=== PATIENT | male | born 1940 | race Caucasian/White ===

== ENCOUNTER 2016-11-13 10:14 | Inpatient (IN) | payer MEDICARE, OTHER ==
[~2016-11-13] VITALS: Ht 172.7 cm; Wt 78.5 kg
[2016-11-13] MEDS ORDERED: AMLO10TA2 PO (10:45)
[2016-11-13] MEDS ORDERED: PRAV20TA2 PO (10:45)
[2016-11-13] MEDS ORDERED: GEMF600T3 PO (10:45)
[2016-11-13] MEDS ORDERED: ASPI81TA2 PO (10:45)
[2016-11-13] MEDS ORDERED: OMEP40CA5 PO (10:45)
[2016-11-13] MEDS ORDERED: LOSA100T6 PO (10:45)
[2016-11-13] MEDS ORDERED: IV NORMAL SALINE 1000ML BAG 1,000 ML IV SCH (10:56)
[2016-11-13] MEDS ORDERED: ACETAMINOPHEN 500 MG TABLET PO ONE (11:00)
--- NOTE | 2016-11-13 11:32 | RAD ---
Portable AP chest. History: Cough AP view was taken of the chest. Lungs are free of infiltrates. There are changes from previous right past surgery. Heart is normal in size. There is no effusion. Impression: 1. No acute chest disease.
--- NOTE | 2016-11-13 11:34 | PHYS DOC ---
Past Medical History Past Medical History: Cancer, Diabetes-Type II, GERD, High Cholesterol, Hypertension Additional Past Medical Histor: bladder cancer Past Surgical History: Cancer Surgery, Coronary Bypass Surgery, Other Additional Past Surgical Histo: bladder removed, foot sx Alcohol Use: None Drug Use: None Adult General Chief Complaint Chief Complaint: FATIGUE HPI HPI Patient is a 76 year old who presents with symptoms, generalized weakness, decreased appetite, generalized body aches, shortness of breath, generalized abdominal discomfort. Patient reports she has been having symptoms for the past 2 days. No clear inciting or mitigating factors. He denies fever or chest pain. He has tried some NyQuil and Mucinex at home with insufficient relief. No other acute complaints. Review of Systems Review of Systems Constitutional: Generalized weakness, decreased appetite. Denies fever or chills Eyes: Denies change in visual acuity or eye pain HENT: Denies nasal congestion or sore throat Respiratory: Productive cough, SOB Cardiovascular: Denies chest pain GI: General abdominal discomfort, chronic diarrhea. Denies nausea, vomiting, bloody stools : Denies dysuria or hematuria Musculoskeletal: General myalgias Integument: Denies rash or skin lesions Neurologic: Denies focal weakness or sensory changes Current Medications Current Medications Current Medications Medications (Trade) Dose Ordered Sig/Evelyne Start Time Stop Time Status Last Admin Dose Admin Acetaminophen (Tylenol) 1,000 mg 1X ONCE 11/13/16 11:00 11/13/16 11:01 DC 11/13/16 11:33 1,000 MG Aspirin (Children'S Aspirin) 324 mg 1X ONCE 11/13/16 12:15 11/13/16 12:17 DC 11/13/16 13:05 324 MG Sodium Chloride (Iv Sodium Chloride 0.9% 1000ml Bag) 1,000 ml @ 1,000 mls/hr Q1H 11/13/16 10:56 11/13/16 11:55 DC 11/13/16 11:32 1,000 MLS/HR Allergies Allergies Allergies Coded Allergies Type Severity Reaction Last Updated Verified No Known Drug Allergies 11/13/16 No Physical Exam Physical Exam Constitutional: Well developed, well nourished, non-toxic appearance HENT: Normocephalic, atraumatic, bilateral external ears normal Eyes: EOMI, conjunctiva normal, no discharge Neck: Normal range of motion, no stridor Cardiovascular: Heart rate normal, regular rhythm, no murmur Lungs & Thorax: Bilateral breath sounds clear to auscultation Abdomen: Bowel sounds normal, soft, non-distended, general discomfort on palpation without point tenderness, no rebound or guarding Skin: Warm, dry, no erythema, no rash Extremities: No obvious deformity, no edema Neurologic: Alert and oriented X 3, no gross deficits noted Current Patient Data Vital Signs Vital Signs Date Time Temp Pulse Resp B/P Pulse Ox O2 Delivery O2 Flow Rate FiO2 11/13/16 12:05 74 24 207/84 97 Room Air 11/13/16 10:34 97.9 97.9 Lab Values Laboratory Tests Test 11/13/16 11:10 11/13/16 11:20 11/13/16 11:37 Influenza Type A Antigen Negative (NEGATIVE) Influenza Type B Antigen Negative (NEGATIVE) White Blood Count 3.7x10^3/uL (4.0-11.0) L Red Blood Count 3.66x10^6/uL (4.30-5.70) L Hemoglobin 10.9g/dL (13.0-17.5) L Hematocrit 33.0% (39.0-53.0) L Mean Corpuscular Volume 90fL (79-100) Mean Corpuscular Hemoglobin 30pg (25-35) Mean Corpuscular Hemoglobin Concent 33g/dL (31-37) Red Cell Distribution Width 14.5% (11.5-14.5) Platelet Count 239x10^3/uL (140-400) Neutrophils (%) (Auto) 60% (31-73) Lymphocytes (%) (Auto) 22% (24-48) L Monocytes (%) (Auto) 17% (0-9) H Eosinophils (%) (Auto) 0% (0-3) Basophils (%) (Auto) 0% (0-3) Neutrophils # (Auto) 2.2x10^3uL (1.8-7.7) Lymphocytes # (Auto) 0.8x10^3/uL (1.0-4.8) L Monocytes # (Auto) 0.6x10^3/uL (0.0-1.1) Eosinophils # (Auto) 0.0x10^3/uL (0.0-0.7) Basophils # (Auto) 0.0x10^3/uL (0.0-0.2) Prothrombin Time 14.1SEC (11.7-14.0) H Prothrombin Time INR 1.2 (0.8-1.1) H PTT 39SEC (24-38) H Sodium Level 139mmol/L (136-145) Potassium Level 4.3mmol/L (3.5-5.1) Chloride Level 103mmol/L (98-107) Carbon Dioxide Level 22mmol/L (21-32) Anion Gap 14 (6-14) Blood Urea Nitrogen 36mg/dL (8-26) H Creatinine 1.8mg/dL (0.7-1.3) H Estimated GFR (Cockcroft-Gault) 37.0 Glucose Level 107mg/dL (70-99) H Calcium Level 9.3mg/dL (8.5-10.1) Total Bilirubin 0.4mg/dL (0.2-1.0) Direct Bilirubin 0.2mg/dL (0.0-0.2) Aspartate Amino Transferase (AST) 28U/L (15-37) Alanine Aminotransferase (ALT) 21U/L (16-63) Alkaline Phosphatase 109U/L (46-116) Troponin I Quantitative < 0.017ng/mL (0.000-0.055) Total Protein 7.8g/dL (6.4-8.2) Albumin 3.8g/dL (3.4-5.0) Urine Collection Type Unknown Urine Color Yellow Urine Clarity Clear Urine pH 8.5 Urine Specific [place] 1.010 Urine Protein 100mg/dL (NEG-TRACE) Urine Glucose (UA) Negativemg/dL (NEG) Urine Ketones (Stick) Negativemg/dL (NEG) Urine Blood Large (NEG) Urine Nitrite Negative (NEG) Urine Bilirubin Negative (NEG) Urine Urobilinogen Dipstick 0.2mg/dL (0.2 mg/dL) Urine Leukocyte Esterase Negative (NEG) Urine RBC >40/HPF (0-2) Urine WBC 5-10/HPF (0-4) Urine Squamous Epithelial Cells Occ/LPF Urine Bacteria Many/HPF (0-FEW) Laboratory Tests 11/13/16 11:20 Laboratory Tests 11/13/16 11:20 EKG EKG EKG (my read): sinus rhythm, rate 71, normal axis, RBBB, ST depression/TWI in anterior and inferior leads, no prior to compare Radiology/Procedures Radiology/Procedures CXR: Impression: 1. No acute chest disease. AAS: Impression: 1. Nonspecific bowel gas pattern without obstruction. 2. Evidence of prior surgeries. 3. No free air. Course & Med Decision Making Course & Med Decision Making Pertinent Labs and Imaging studies reviewed. (See chart for details) Patient is 76-year-old male who presents with multiple complaints. Possible viral illness. However, patient has extensive past medical history so will need to pursue workup to screen for more serious pathology. Chest x-ray, EKG, labs ordered to evaluate. IV fluids and acetaminophen ordered for relief of symptoms. E.g. concerning for ischemic changes; troponin within normal limits. I discussed this quickly with Dr. Horner; although patient does not have any specific chest pain, with his history and with EKG changes we will heparinize and give ASA. Labs notable for hematuria, mild anemia, leukopenia, creatinine 1.8. Discussed results with patient. Discussed with Dr. Desai, will admit under her care for further evaluation and treatment. Dragon Disclaimer Dragon Disclaimer This electronic medical record was generated, in whole or in part, using a voice recognition dictation system. Departure Departure Impression: Primary Impression: Generalized weakness Additional Impressions: Fatigue Abnormal EKG Disposition: ADMITTED INPATIENT Admitting Physician: Jose L Kebede Condition: GUARDED Problem Qualifiers TERESA GERMAN MD Nov 13, 2016 11:34
[2016-11-13 11:39] LABS: OBC FLU VALID
[2016-11-13 11:39] LABS: BASO % 0 % (0-3); CALCIUM 9.3 mg/dL (8.5-10.1); CREATININE 1.8 mg/dL (0.7-1.3); EOS % 0 % (0-3); HEMOGLOBIN 10.9 g/dL (13.0-17.5); LYMPH # 0.8 x10^3/uL (1.0-4.8); LYMPH % 22 % (24-48); MEAN CORPUSCULAR HEMOGLOBIN 30 pg (25-35); MEAN CORPUSCULAR HGB CONC 33 g/dL (31-37); MEAN CORPUSCULAR VOLUME 90 fL (79-100); MONO % 17 % (0-9); NEUT % 60 % (31-73); PLATELET COUNT 239 x10^3/uL (140-400); POTASSIUM 4.3 mmol/L (3.5-5.1); RED BLOOD COUNT 3.66 x10^6/uL (4.30-5.70); RED CELL DISTRIBUTION WIDTH 14.5 % (11.5-14.5); WHITE BLOOD COUNT 3.7 x10^3/uL (4.0-11.0)
[2016-11-13 11:45] LABS: ALBUMIN 3.8 g/dL (3.4-5.0); DIRECT BILIRUBIN 0.2 mg/dL (0.0-0.2); TOTAL BILIRUBIN 0.4 mg/dL (0.2-1.0); TOTAL PROTEIN 7.8 g/dL (6.4-8.2)
--- NOTE | 2016-11-13 11:55 | EKG ---
[facility] [address] [place] [address] Test Date: 2016-11-13 Test Time: 11:47:59 Pat Name: PAUL BELLO Department: Room: Gender: M Authorizer: : [id number] Requested By: TERESA GERMAN Order Number: [id number] Reading MD: Arlin Taylor Measurements Intervals [place] Rate: 71 P: -67 WI: 162 QRS: 83 QRSD: 132 T: -57 QT: 398 QTc: 437 Interpretive Statements SINUS RHYTHM ATRIAL PREMATURE COMPLEX(ES) RIGHT BUNDLE BRANCH BLOCK \ RI6.01 Unconfirmed report No previous ECG available for comparison Electronically Signed On 11-17-2016 23:06:01 [employer] by Arlin Taylor
[2016-11-13 12:05] LABS: BILIRUBIN,URINE NEGATIVE (NEG); GLUCOSE,URINE NEGATIVE (NEG); NITRITE,URINE NEGATIVE (NEG); PH,URINE 8.5; PROTEIN,URINE 100 mg/dL (NEG-TRACE); UROBILINOGEN,URINE 0.2 mg/dL (0.2 mg/dL)
[2016-11-13] MEDS ORDERED: ASPIRIN 81 MG TAB.CHEW PO ONE (12:15)
[2016-11-13 12:29] LABS: BACTERIA,URINE MANY /HPF (0-FEW); RBC,URINE >40 /HPF (0-2); SQUAMOUS EPITHELIAL CELL,UR OCC /LPF
[2016-11-13] MEDS ORDERED: ACETAMINOPHEN 325 MG TABLET. PO PRN (12:30)
[2016-11-13] MEDS ORDERED: HEPARIN 25,000UTS/500ML PREMIX 500 ML IV PRN (12:30)
[2016-11-13] MEDS ORDERED: NITROGLYCERIN SUBLINGUAL 0.4 MG BOTTLE OF 25. SL PRN (12:30)
[2016-11-13] MEDS ORDERED: DEXTROSE 50% 25 GM / 50ML DISP.SYRIN. IV PRN (12:30)
[2016-11-13] MEDS ORDERED: HEPARIN for IV BOLUS 10,000 UNIT/10 ML VIAL. IV PRN (12:30)
[2016-11-13] MEDS ORDERED: MORPHINE SULFATE 2 MG/ML DISP.SYRIN. IV PRN (12:30)
[2016-11-13] MEDS ORDERED: ONDANSETRON PF 4 MG/2 ML VIAL. IV PRN (12:30)
[2016-11-13 12:36] LABS: INR 1.2 (0.8-1.1); PROTHROMBIN TIME PATIENT 14.1 SEC (11.7-14.0)
[2016-11-13] MEDS ORDERED: HEPARIN for IV BOLUS 10,000 UNIT/10 ML VIAL. IV ONE (13:00)
--- NOTE | 2016-11-13 13:01 | RAD ---
Supine and upright abdomen. History: Abdominal pain, previous surgery, history of "blockage" Supine and upright views were taken of the abdomen. There is no free air on the upright view or abnormal air-fluid levels. There is mild scoliosis and degenerative change in the thoracolumbar spine. There is small bowel and colon gas without an obstructive pattern. There are clips from previous surgery in the pelvis. The visualized lung bases are clear. Impression: 1. Nonspecific bowel gas pattern without obstruction. 2. Evidence of prior surgeries. 3. No free air.
[2016-11-13 13:30] VITALS: BP 174/69
[2016-11-13 15:00] VITALS: BP 146/67
[2016-11-13] MEDS: INSULIN ASPART 300 UNITS/3 ML INSULN.PEN SQ SCH (17:00)
[2016-11-13 19:10] VITALS: BP 159/69
[2016-11-13] MEDS: GEMFIBROZIL 600 MG TABLET. PO SCH (20:55)
[2016-11-13] MEDS: ATORVASTATIN CALCIUM 10 MG TABLET. PO SCH (20:56)
[2016-11-13 23:32] VITALS: BP 145/67
[2016-11-14 03:00] VITALS: BP 142/65
[2016-11-14 06:43] LABS: HEMATOCRIT 29.9 % (39.0-53.0); HEMOGLOBIN 10.2 g/dL (13.0-17.5); RED BLOOD COUNT 3.32 x10^6/uL (4.30-5.70); RED CELL DISTRIBUTION WIDTH 14.4 % (11.5-14.5); WHITE BLOOD COUNT 3.7 x10^3/uL (4.0-11.0)
[2016-11-14 07:00] VITALS: BP 126/57
[2016-11-14 07:05] LABS: CALCIUM 8.7 mg/dL (8.5-10.1); CREATININE 1.7 mg/dL (0.7-1.3); GFR 39.5; MAGNESIUM 1.7 mg/dL (1.8-2.4); POTASSIUM 3.7 mmol/L (3.5-5.1)
[2016-11-14 07:11] LABS: CHOLESTEROL/HDL RATIO 4.9
[2016-11-14] MEDS: INSULIN ASPART 300 UNITS/3 ML INSULN.PEN SQ SCH ×3 (08:00→17:00)
[2016-11-14] MEDS: LOSARTAN POTASSIUM 50 MG TABLET. PO SCH (10:08)
[2016-11-14] MEDS: GEMFIBROZIL 600 MG TABLET. PO SCH ×2 (10:08→21:14)
[2016-11-14] MEDS: PANTOPRAZOLE 40 MG TABLET. PO SCH (10:09)
[2016-11-14] MEDS: AMLODIPINE BESYLATE 10 MG TABLET PO SCH (10:09)
[2016-11-14] MEDS: ASPIRIN 81 MG TAB.CHEW PO SCH (10:09)
[2016-11-14 11:00] VITALS: BP 143/64
[2016-11-14] MEDS ORDERED: ANTI-COAG MONITOR BY PHARMACY. MC PRN (13:00)
[2016-11-14 15:00] VITALS: BP 114/53
[2016-11-14] MEDS: IPRATRPIUM/ALBUTEROL 0.5/2.5MG 3 ML NEBU. NEB SCH ×2 (16:10→21:21)
--- NOTE | 2016-11-14 17:04 | CARD ---
APPROVED REPORT EXAM: Two-dimensional and M-mode echocardiogram with Doppler and color Doppler. Other Information Quality : FairHR: 78bpm INDICATION Dyspnea H/O CABG 2D DIMENSIONS Left Atrium(2D)4.3 (1.6-4.0cm)IVSd1.1 (0.7-1.1cm) Aortic Root(2D)2.9 (2.0-3.7cm)LVDd4.2 (3.9-5.9cm) LVOT Diameter2.2 (1.8-2.4cm)PWd1.1 (0.7-1.1cm) LVDs2.8 (2.5-4.0cm)FS (%) 34.1 % SV49.4 mlCO3.8 L/min M-Mode DIMENSIONS Aortic Cusp Exc1.57 (1.5-2.0cm) Aortic Valve AoV Peak Claus.112.2cm/sAoV VTI19.7cm AO Peak GR.5.0mmHgLVOT VTI 12.69cm AO Mean GR.3mmHg Mitral Valve MV E Jigverxz44.4cm/sMV E Peak Gr.4mmHg MV DECEL [id number] MVA (PHT)4.07cm2 TDI Lateral E' P. V10.66cm/sMedial E' P. V10.01cm/s E/Lateral E'8.9E/Medial E'9.5 Pulmonary Valve PV Peak Sksttxon508.4cm/s Tricuspid Valve TR P. Qbyolckj044of/sTR Peak Gr.49mmHg LEFT VENTRICLE The left ventricle is normal size. There is normal left ventricular wall thickness. The left ventricu lar systolic function is normal and the ejection fraction is within normal range. LV ejection fractio n is 55-60%. There is normal LV segmental wall motion. No left ventricle thrombus noted on this study . There is no ventricular septal defect visualized. There is no left ventricular aneurysm. There is n o mass noted in the left ventricle. RIGHT VENTRICLE The right ventricle is normal size. There is normal right ventricular wall thickness. The right ventr icular systolic function is normal. ATRIA The left atrium is borderline dilated. The right atrium size is normal. The interatrial septum is int act with no evidence for an atrial septal defect or patent foramen ovale as noted on 2-D or Doppler i maging. AORTIC VALVE A bicuspid aortic valve cannot be excluded. Doppler and Color Flow revealed no significant aortic reg urgitation. There is no significant aortic valvular stenosis. There is no aortic valvular vegetation. MITRAL VALVE The mitral valve is normal in structure and function. There is no evidence of mitral valve prolapse. There is no mitral valve stenosis. Doppler and Color Flow revealed slight mitral valve regurgitation. TRICUSPID VALVE The tricuspid valve is normal in structure and function. Doppler and Color Flow revealed mild tricusp id regurgitation. There is no tricuspid valve prolapse or vegetation. There is no tricuspid valve laith nosis. PULMONIC VALVE The pulmonary valve is normal in structure and function. Doppler and Color Flow revealed trace to mil d pulmonic valvular regurgitation. There is no pulmonic valvular stenosis. GREAT VESSELS The aortic root is normal in size. The ascending aorta is normal in size. The IVC is normal in size a nd collapses >50% with inspiration. PERICARDIAL EFFUSION There is no pleural effusion. There is no evidence of significant pericardial effusion. Critical Notification Critical Value: No <Conclusion> The left ventricle is normal size. The left ventricular systolic function is normal and the ejection fraction is within normal range. LV ejection fraction is 55-60%. There is no significant aortic valvular stenosis. Doppler and Color Flow revealed no significant aortic regurgitation. Doppler and Color Flow revealed slight mitral valve regurgitation. Doppler and Color Flow revealed mild tricuspid regurgitation. There is no evidence of significant pericardial effusion.
--- NOTE | 2016-11-14 17:37 | PDOC ---
Provider Note Provider Note H&P dictated # [id number] - presented to ER with fatigue abnormal EKG found and with cardiac hx admitted on heparin drip but enzymes normal so I have stopped it. abnormal UA with hx of bladder cancer and urine growing gram negative rods, will start Ceftriaxone IV pending results, not a good candidate for levaquin due to potential interaction with other meds cough with left sided rhonchi consistent with bronchitis and exacerbation, start pulm Alonzo Baez MD Nov 14, 2016 17:37
[2016-11-14] MEDS: CEFTRIAXONE SODIUM 1 GM in IV NORMAL SALINE 50ML 50 ML IV SCH (17:53)
--- NOTE | 2016-11-14 19:04 | PDOC2 ---
CONSULT Date of Consult Date of Consult DATE: 11/14/16 TIME: 18:57 Reason for Consult Reason for Consult: Abnormal EKG with history of CABG Referring Physician Referring Physician: Dr. Kebede Identification/Chief Complaint Chief Complaint Weakness Source Source: Patient History of Present Illness Reason for Visit: The patient is a pleasant 76-year-old male who was admitted through the emergency room for 2-3 days of progressive weakness. Patient denied any episodes of chest pain but does have a history of bypass surgery as well as carcinoma of the bladder. Overnight he is feeling slightly better. His initial troponin is within normal limits. Chest x-ray shows no acute changes. EKG shows a sinus rhythm with a right bundle branch block and nonspecific ST-T wave changes. Past Medical History Cardiovascular: CAD, HTN, Hyperlipidemia Pulmonary: Bronchitis Heme/Onc: Cancer Past Surgical History Past Surgical History: CABG, Other (surgery for bladder cancer.) Family History Family History: Heart Disease Social History No Current Problem List Problem List Problems Medical Problems: (1) Abnormal EKG Status: Acute (2) Acute electrocardiogram changes Status: Acute (3) Fatigue Status: Acute (4) Generalized weakness Status: Acute Current Medications Current Medications Current Medications Sodium Chloride (Iv Sodium Chloride 0.9% 1000ml Bag) 1,000 ml @ 1,000 mls/hr Q1H IV Last administered on 11/13/16 11:32; Start 11/13/16 at 10:56; Stop at 11:55; Status DC Acetaminophen (Tylenol) 1,000 mg 1X ONCE PO Last administered on 11/13/16 11: 33; Start 11/13/16 at 11:00; Stop 11/13/16 at 11:01; Status DC Aspirin (Children'S Aspirin) 324 mg 1X ONCE PO Last administered on 11/13/16 13:05; Start 11/13/16 at 12:15; Stop 11/13/16 at 12:17; Status DC Heparin Sodium (Porcine) 4000 unit 4,000 unit 1X ONCE IV Last administered on 11/13/16 13:08; Start 11/13/16 at 13:00; Stop 11/13/16 at 13:01; Status DC Heparin Sodium/ Dextrose 500 ml @ 0 mls/hr CONT PRN IV SEE I/O RECORD Last administered on 11/13/16 17:10; Start 11/13/16 at 12:30; Stop 11/14/16 at 17:33; Status DC Heparin Sodium (Porcine) 1,950 unit PRN Q6HRS PRN IV FOR UFH LEVEL LESS THAN 0.2; Start 11/13/16 at 12:30; Stop 11/14/16 at 17:33; Status DC Ondansetron HCl (Zofran) 4 mg PRN Q8HRS PRN IV NAUSEA/VOMITING; Start 11/13/16 at 12:30; Stop 11/14/16 at 12:29; Status DC Morphine Sulfate 2 mg PRN Q2HR PRN IV PAIN; Start 11/13/16 at 12:30; Stop at 12:29; Status DC Acetaminophen (Tylenol) 650 mg PRN Q4HRS PRN PO FEVER; Start 11/13/16 at 12:30; Stop 11/14/16 at 12:29; Status DC Nitroglycerin (Nitrostat) 0.4 mg PRN Q5MIN PRN SL CHEST PAIN; Start 11/13/16 at 12:30; Stop 11/14/16 at 12:29; Status DC Insulin Aspart (Novolog) 0-7 UNITS TIDWMEALS SQ Last administered on 11/14/16 13:42; Start 11/13/16 at 17:00 Dextrose 12.5 gm PRN Q15MIN PRN IV SEE COMMENTS; Start 11/13/16 at 12:30 Amlodipine Besylate (Norvasc) 10 mg DAILY PO Last administered on 11/14/16 10: 09; Start 11/14/16 at 09:00 Aspirin (Children'S Aspirin) 81 mg DAILY PO Last administered on 11/14/16 10:09 ; Start 11/14/16 at 09:00 Gemfibrozil (Lopid) 600 mg BID PO Last administered on 11/14/16 10:08; Start at 21:00 Losartan Potassium (Cozaar) 50 mg DAILY PO Last administered on 11/14/16 10:08 ; Start 11/14/16 at 09:00 Pantoprazole Sodium (Protonix) 40 mg DAILYAC PO Last administered on 11/14/16 10:09; Start 11/14/16 at 07:30 Atorvastatin Calcium (Lipitor) 5 mg QHS PO Last administered on 11/13/16 20:56 ; Start 11/13/16 at 21:00 Info (Anti-Coagulation Monitoring By Pharmacy) 1 each PRN DAILY PRN MC SEE COMMENTS Last administered on 11/14/16 12:57; Start 11/14/16 at 13:00; Stop at 17:36; Status DC Budesonide (Pulmicort) 0.5 mg RTBID NEB ; Start 11/14/16 at 20:00 Albuterol/ Ipratropium (Duoneb) 3 ml RTQID NEB Last administered on 11/14/16 16 :10; Start 11/14/16 at 16:00 Guaifenesin 1 tab 1 tab BID PO ; Start 11/14/16 at 21:00 Ceftriaxone Sodium/Sodium Chloride (Rocephin/Iv Sodium Chloride 0.9% 50ml) 50 ml @ 100 mls/hr Q24H IV Last administered on 11/14/16 17:53; Start 11/14/16 at 18:00 Active Scripts Active Reported Omeprazole 40 Mg Capsule.dr 1 Cap PO DAILY Amlodipine Besylate 10 Mg Tablet 10 Mg PO DAILY Aspirin 81 Mg Tab.chew 1 Tab PO DAILY Gemfibrozil 600 Mg Tablet 1 Tab PO BID Pravastatin Sodium 20 Mg Tablet 1 Tab PO DAILY Losartan Potassium 100 Mg Tablet 50 Mg PO DAILY Allergies Allergies: Coded Allergies: No Known Drug Allergies (Unverified , 11/13/16) ROS General: YES: Fatigue Respiratory: YES: SOB with excertion Physical Exam General: mild distress HEENT: Atraumatic Lungs: Clear to auscultation Heart: Regular rate Abdomen: Normal bowel sounds Vitals VITALS Vital Signs Date Time Temp Pulse Resp B/P Pulse Ox O2 Delivery O2 Flow Rate FiO2 11/14/16 16:11 97 Room Air 11/14/16 15:00 97.7 70 18 114/53 97.7 Labs Labs Laboratory Tests Test 11/13/16 11:10 11/13/16 11:20 11/13/16 11:37 11/13/16 13:48 Influenza Type A Antigen Negative (NEGATIVE) Influenza Type B Antigen Negative (NEGATIVE) White Blood Count 3.7x10^3/uL (4.0-11.0) Red Blood Count 3.66x10^6/uL (4.30-5.70) Hemoglobin 10.9g/dL (13.0-17.5) Hematocrit 33.0% (39.0-53.0) Mean Corpuscular Volume 90fL (79-100) Mean Corpuscular Hemoglobin 30pg (25-35) Mean Corpuscular Hemoglobin Concent 33g/dL (31-37) Red Cell Distribution Width 14.5% (11.5-14.5) Platelet Count 239x10^3/uL (140-400) Neutrophils (%) (Auto) 60% (31-73) Lymphocytes (%) (Auto) 22% (24-48) Monocytes (%) (Auto) 17% (0-9) Eosinophils (%) (Auto) 0% (0-3) Basophils (%) (Auto) 0% (0-3) Neutrophils # (Auto) 2.2x10^3uL (1.8-7.7) Lymphocytes # (Auto) 0.8x10^3/uL (1.0-4.8) Monocytes # (Auto) 0.6x10^3/uL (0.0-1.1) Eosinophils # (Auto) 0.0x10^3/uL (0.0-0.7) Basophils # (Auto) 0.0x10^3/uL (0.0-0.2) Prothrombin Time 14.1SEC (11.7-14.0) Prothromb Time International Ratio 1.2 (0.8-1.1) Activated Partial Thromboplast Time 39SEC (24-38) Sodium Level 139mmol/L (136-145) Potassium Level 4.3mmol/L (3.5-5.1) Chloride Level 103mmol/L (98-107) Carbon Dioxide Level 22mmol/L (21-32) Anion Gap 14 (6-14) Blood Urea Nitrogen 36mg/dL (8-26) Creatinine 1.8mg/dL (0.7-1.3) Estimated GFR (Cockcroft-Gault) 37.0 Glucose Level 107mg/dL (70-99) Calcium Level 9.3mg/dL (8.5-10.1) Total Bilirubin 0.4mg/dL (0.2-1.0) Direct Bilirubin 0.2mg/dL (0.0-0.2) Aspartate Amino Transf (AST/SGOT) 28U/L (15-37) Alanine Aminotransferase (ALT/SGPT) 21U/L (16-63) Alkaline Phosphatase 109U/L (46-116) Troponin I Quantitative < 0.017ng/mL (0.000-0.055) Total Protein 7.8g/dL (6.4-8.2) Albumin 3.8g/dL (3.4-5.0) Urine Collection Type Unknown Urine Color Yellow Urine Clarity Clear Urine pH 8.5 Urine Specific [place] 1.010 Urine Protein 100mg/dL (NEG-TRACE) Urine Glucose (UA) Negativemg/dL (NEG) Urine Ketones (Stick) Negativemg/dL (NEG) Urine Blood Large (NEG) Urine Nitrite Negative (NEG) Urine Bilirubin Negative (NEG) Urine Urobilinogen Dipstick 0.2mg/dL (0.2 mg/dL) Urine Leukocyte Esterase Negative (NEG) Urine RBC >40/HPF (0-2) Urine WBC 5-10/HPF (0-4) Urine Squamous Epithelial Cells Occ/LPF Urine Bacteria Many/HPF (0-FEW) Glucose (Fingerstick) 91mg/dL (70-99) Test 11/13/16 17:07 11/13/16 18:30 11/13/16 20:57 11/13/16 21:44 Glucose (Fingerstick) 89mg/dL (70-99) 59mg/dL (70-99) 95mg/dL (70-99) Troponin I Quantitative < 0.017ng/mL (0.000-0.055) Test 11/13/16 23:15 11/14/16 00:15 11/14/16 05:05 11/14/16 08:24 Heparin Anti-Xa Act, Unfractionated 0.24IU/mL (0.30-0.70) 0.39IU/mL (0.30-0.70) Troponin I Quantitative < 0.017ng/mL (0.000-0.055) < 0.017ng/mL (0.000-0.055) White Blood Count 3.7x10^3/uL (4.0-11.0) Red Blood Count 3.32x10^6/uL (4.30-5.70) Hemoglobin 10.2g/dL (13.0-17.5) Hematocrit 29.9% (39.0-53.0) Mean Corpuscular Volume 90fL (79-100) Mean Corpuscular Hemoglobin 31pg (25-35) Mean Corpuscular Hemoglobin Concent 34g/dL (31-37) Red Cell Distribution Width 14.4% (11.5-14.5) Platelet Count 212x10^3/uL (140-400) Sodium Level 141mmol/L (136-145) Potassium Level 3.7mmol/L (3.5-5.1) Chloride Level 106mmol/L (98-107) Carbon Dioxide Level 22mmol/L (21-32) Anion Gap 13 (6-14) Blood Urea Nitrogen 38mg/dL (8-26) Creatinine 1.7mg/dL (0.7-1.3) Estimated GFR (Cockcroft-Gault) 39.5 Glucose Level 63mg/dL (70-99) Calcium Level 8.7mg/dL (8.5-10.1) Magnesium Level 1.7mg/dL (1.8-2.4) Triglycerides Level 166mg/dL (0-150) Cholesterol Level 122mg/dL (0-200) LDL Cholesterol, Calculated 64mg/dL (0-100) VLDL Cholesterol, Calculated 33mg/dL (0-40) HDL Cholesterol 25mg/dL (40-60) Cholesterol/HDL Ratio 4.9 Glucose (Fingerstick) 87mg/dL (70-99) Test 11/14/16 11:56 11/14/16 17:23 Glucose (Fingerstick) 188mg/dL (70-99) 130mg/dL (70-99) Laboratory Tests Test 11/13/16 20:57 11/13/16 21:44 11/13/16 23:15 11/14/16 00:15 Glucose (Fingerstick) 59mg/dL (70-99) 95mg/dL (70-99) Heparin Anti-Xa Act, Unfractionated 0.24IU/mL (0.30-0.70) Troponin I Quantitative < 0.017ng/mL (0.000-0.055) Test 11/14/16 05:05 11/14/16 08:24 11/14/16 11:56 11/14/16 17:23 White Blood Count 3.7x10^3/uL (4.0-11.0) Red Blood Count 3.32x10^6/uL (4.30-5.70) Hemoglobin 10.2g/dL (13.0-17.5) Hematocrit 29.9% (39.0-53.0) Mean Corpuscular Volume 90fL (79-100) Mean Corpuscular Hemoglobin 31pg (25-35) Mean Corpuscular Hemoglobin Concent 34g/dL (31-37) Red Cell Distribution Width 14.4% (11.5-14.5) Platelet Count 212x10^3/uL (140-400) Heparin Anti-Xa Act, Unfractionated 0.39IU/mL (0.30-0.70) Sodium Level 141mmol/L (136-145) Potassium Level 3.7mmol/L (3.5-5.1) Chloride Level 106mmol/L (98-107) Carbon Dioxide Level 22mmol/L (21-32) Anion Gap 13 (6-14) Blood Urea Nitrogen 38mg/dL (8-26) Creatinine 1.7mg/dL (0.7-1.3) Estimated GFR (Cockcroft-Gault) 39.5 Glucose Level 63mg/dL (70-99) Calcium Level 8.7mg/dL (8.5-10.1) Magnesium Level 1.7mg/dL (1.8-2.4) Troponin I Quantitative < 0.017ng/mL (0.000-0.055) Triglycerides Level 166mg/dL (0-150) Cholesterol Level 122mg/dL (0-200) LDL Cholesterol, Calculated 64mg/dL (0-100) VLDL Cholesterol, Calculated 33mg/dL (0-40) HDL Cholesterol 25mg/dL (40-60) Cholesterol/HDL Ratio 4.9 Glucose (Fingerstick) 87mg/dL (70-99) 188mg/dL (70-99) 130mg/dL (70-99) Images Images Chest x-ray with no acute changes. Assessment/Plan Assessment/Plan 1. Progressive weakness and fatigue. Patient is feeling slightly better today. He does have a history of bladder cancer as above. Workup is in progress. 2. Abnormal EKG with a history of bypass surgery. Patient denies any chest pain. Initial troponin is normal. Would rule out myocardial infarction. Will check an echocardiogram for LV function and obtain old records. 3. History of bladder cancer with previous surgery. 4. Hypertension. Will continue home medications and adjust as needed. 5. History of hyperlipidemia. We'll check a lipid panel. Thank you for allowing us to participate in the care of your patient. JOSE JUAN DAVID MD Nov 14, 2016 19:04
[2016-11-14 19:45] VITALS: BP 155/69
[2016-11-14] MEDS: GUAIFENESIN DM 600/30MG TAB.ER.12H. PO SCH (21:14)
[2016-11-14] MEDS: ATORVASTATIN CALCIUM 10 MG TABLET. PO SCH (21:14)
[2016-11-14] MEDS: BUDESONIDE 0.5 MG/2 ML NEBU NEB SCH (21:21)
--- NOTE | 2016-11-14 22:59 | HP ---
ADMIT DATE: 11/13/2016 ADMISSION DIAGNOSES: 1. Chronic obstructive pulmonary disease exacerbation. 2. Generalized weakness. 3. EKG changes with history of coronary artery disease. 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 Briggs. He came to the Emergency Room because of respiratory symptoms and some trouble breathing and was found to have an abnormal EKG and admitted with cardiology consultation on heparin drip. Since admission, though his cardiac enzymes have remained normal, but his respiratory symptoms have not improved and he is coughing and wheezing. PAST MEDICAL HISTORY: He has a history of coronary artery disease, hypertension, hyperlipidemia, GERD, bladder cancer, osteoarthritis, type 2 diabetes, hypothyroidism. PAST SURGICAL HISTORY: Include coronary artery bypass and bladder surgery, removing his bladder, he has also had a foot surgery. HOME MEDICATIONS: Amlodipine 10 mg daily, aspirin 81 mg daily, gemfibrozil 600 mg b.i.d., losartan 50 mg daily, omeprazole 40 mg daily and pravastatin 20 mg daily. ALLERGIES: He has no known drug allergies. FAMILY HISTORY: Noncontributory. SOCIAL HISTORY: He needs assistance with care. Denies history of smoking. REVIEW OF SYSTEMS: Significant for upper respiratory symptoms with cough and congestion and fatigue. He is not sure about fever or chills. He denies chest pain or palpitations. He has not had any nausea or vomiting or changes in his bowels. His bladder cancer has been stable. EXTREMITIES: He ____ any swelling or noted any cyanosis. MUSCULOSKELETAL: He has got arthritis in his hands. VITAL SIGNS: He is afebrile, pulse is regular, respiratory rate is normal. Blood pressures have been relatively normal. Room air oxygen saturations have been in the mid 90s. GENERAL: He is awake and alert, sitting up in bed and having a little bit of trouble breathing while he eats. He is not hypoxic appearing. There is no cyanosis. There is no clubbing. LUNGS: Have expiratory wheezes and rhonchi bilaterally, but particularly on the left. HEART: Regular rate and rhythm. No JVD is noted. No S3 or S4 was heard. ABDOMEN: Soft, nondistended, nontender. Sinuses are congested and nontender. HEENT: Mucous membranes are moist. LABORATORY DATA: His white count is low at 3.7, hemoglobin has dropped from 10.9 to 10.2. Overnight, he has got a left shift with increased monocytes. His INR is 1.2, PT 14.1, APTT is 39. His heparin anti-Xa and fractionated are being monitored on heparin drip. BUN is a little elevated at 38, creatinine 1.7, I am not sure of his baseline. His magnesium is slightly low at 1.7, sugar has ranged from 87 to 188, troponin is normal. Triglycerides are borderline high at 166. Total cholesterol is only 122 with HDL 25, LDL of 64. Urinalysis: 100 protein, large amount of blood and many bacteria. Flu A and B are negative. Microbiology shows preliminary report of gram-negative rods. IMAGING: Abdominal series shows nothing specific. No free air. Chest x-ray shows no acute process. ASSESSMENT: 1. Urinary tract infection, gram-negative rods in a patient with history of bladder cancer. 2. Abnormal EKG with normal enzymes at this point, it appears he can stop his heparin. Dr. Horner has been consulted. 3. Shortness of breath appears to be secondary to bronchitis. I do not get a clear history of COPD, but he certainly appears to be having an exacerbation. 4. Type 2 diabetes history, not on medication. 5. Mild anemia, unclear if chronic or not. PLAN: He is admitted. We will start pulmonary treatments, we will start antibiotic coverage for gram-negative rods. Await his culture. Alonzo KOHLER MD DR: KRISTAL/emiliano JOB#: [id number] / [id number]
[2016-11-14 23:51] VITALS: BP 103/60
[2016-11-15 03:00] VITALS: BP 142/59
[2016-11-15 05:33] LABS: BASO % 1 % (0-3); EOS % 1 % (0-3); HEMATOCRIT 28.6 % (39.0-53.0); HEMOGLOBIN 9.4 g/dL (13.0-17.5); LYMPH # 1.1 x10^3/uL (1.0-4.8); LYMPH % 27 % (24-48); MEAN CORPUSCULAR HEMOGLOBIN 30 pg (25-35); MEAN CORPUSCULAR HGB CONC 33 g/dL (31-37); MEAN CORPUSCULAR VOLUME 92 fL (79-100); MONO % 16 % (0-9); NEUT % 56 % (31-73); PLATELET COUNT 190 x10^3/uL (140-400); RED BLOOD COUNT 3.13 x10^6/uL (4.30-5.70); RED CELL DISTRIBUTION WIDTH 14.5 % (11.5-14.5)
[2016-11-15 05:47] LABS: CALCIUM 8.9 mg/dL (8.5-10.1); GFR 32.7; POTASSIUM 3.9 mmol/L (3.5-5.1)
[2016-11-15 07:38] VITALS: BP 125/60
[2016-11-15] MEDS: IPRATRPIUM/ALBUTEROL 0.5/2.5MG 3 ML NEBU. NEB SCH ×2 (07:39→12:07)
[2016-11-15] MEDS: BUDESONIDE 0.5 MG/2 ML NEBU NEB SCH ×2 (07:39→20:00)
[2016-11-15] MEDS: LOSARTAN POTASSIUM 50 MG TABLET. PO SCH (08:32)
[2016-11-15] MEDS: ASPIRIN 81 MG TAB.CHEW PO SCH (08:32)
[2016-11-15] MEDS: PANTOPRAZOLE 40 MG TABLET. PO SCH (08:33)
[2016-11-15] MEDS: GEMFIBROZIL 600 MG TABLET. PO SCH ×2 (08:33→21:05)
[2016-11-15] MEDS: AMLODIPINE BESYLATE 10 MG TABLET PO SCH (08:33)
[2016-11-15] MEDS: GUAIFENESIN DM 600/30MG TAB.ER.12H. PO SCH ×2 (08:42→21:05)
[2016-11-15] MEDS: INSULIN ASPART 300 UNITS/3 ML INSULN.PEN SQ SCH ×2 (08:42→13:03)
[2016-11-15 10:43] VITALS: BP 160/69
--- NOTE | 2016-11-15 11:21 | PDOC ---
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 [employer] 11/15/16 1121: CARDIO Progress Notes Date and Time Date of Service 11/15/2016 Time of Evaluation 1103 Subjective Subjective: No Chest Pain, No shortness of breath, No Palpitations, No Dizziness, Other (c/o weakness and unable to sit up unassisted in bed) Vitals Vitals Vital Signs Date Time Temp Pulse Resp B/P Pulse Ox O2 Delivery O2 Flow Rate FiO2 11/15/16 10:43 97.9 103 20 160/69 96 Room Air 97.9 11/15/16 03:00 2.0 Weight Weight [ ] Input and Output Intake and Output Intake and Output 11/15/16 07:00 Intake Total 860 ml Output Total 1450 ml Balance -590 ml Intake Oral 860 ml Output Urine Total 1450 ml Laboratory Labs Laboratory Tests Test 11/14/16 11:56 11/14/16 17:23 11/14/16 20:36 11/15/16 05:18 Glucose (Fingerstick) 188mg/dL (70-99) 130mg/dL (70-99) 180mg/dL (70-99) White Blood Count 4.0x10^3/uL (4.0-11.0) Red Blood Count 3.13x10^6/uL (4.30-5.70) Hemoglobin 9.4g/dL (13.0-17.5) Hematocrit 28.6% (39.0-53.0) Mean Corpuscular Volume 92fL (79-100) Mean Corpuscular Hemoglobin 30pg (25-35) Mean Corpuscular Hemoglobin Concent 33g/dL (31-37) Red Cell Distribution Width 14.5% (11.5-14.5) Platelet Count 190x10^3/uL (140-400) Neutrophils (%) (Auto) 56% (31-73) Lymphocytes (%) (Auto) 27% (24-48) Monocytes (%) (Auto) 16% (0-9) Eosinophils (%) (Auto) 1% (0-3) Basophils (%) (Auto) 1% (0-3) Neutrophils # (Auto) 2.3x10^3uL (1.8-7.7) Lymphocytes # (Auto) 1.1x10^3/uL (1.0-4.8) Monocytes # (Auto) 0.6x10^3/uL (0.0-1.1) Eosinophils # (Auto) 0.0x10^3/uL (0.0-0.7) Basophils # (Auto) 0.0x10^3/uL (0.0-0.2) Heparin Anti-Xa Act, Unfractionated < 0.10IU/mL (0.30-0.70) Sodium Level 140mmol/L (136-145) Potassium Level 3.9mmol/L (3.5-5.1) Chloride Level 106mmol/L (98-107) Carbon Dioxide Level 20mmol/L (21-32) Anion Gap 14 (6-14) Blood Urea Nitrogen 45mg/dL (8-26) Creatinine 2.0mg/dL (0.7-1.3) Estimated GFR (Cockcroft-Gault) 32.7 Glucose Level 179mg/dL (70-99) Calcium Level 8.9mg/dL (8.5-10.1) Test 11/15/16 07:34 Glucose (Fingerstick) 183mg/dL (70-99) Microbiology Micro Microbiology 11/13/16 Urine Culture - Preliminary, Resulted 11/13/16 Urine Culture Result 1 (SHENG) - Preliminary, Resulted Physical Exam HEENT: Neck Supple W Full Motion Chest: Symmetric LUNGS: Other (expiratory wheezing posteriorly) Heart: S1S2, RRR Abdomen: Soft N/T Extremities: No Edema Neurology: alert, follow commands Assessment Assessment 1. Progressive weakness and fatigue ? related to cancer PT/OT evaluation - increase activity 2. Abnormal EKG (RBBB with NSST & T changes) with previous CABG X 4 - 2006 troponin levels normal X 4 echo without significant findings and preserved LV function 3. History of bladder cancer with ileostomy - 2006 4. Hypertension controlled with medications 5. mixed hyperlipidemia continue home medications 6. DM, II per primary service ? home today - pt thinks he is to be discharged LONDON SALDAÑA MD 11/15/16 1545: CARDIO Progress Notes Assessment Assessment Patient seen and examined. Agree with SKIN INSTALLER's assessment and plan. CAD status appears clinically stable. Continue PT evaluation and possible transfer to SNU tomorrow. Follow-up with our office in one month. REJI PAYNE APRN Nov 15, 2016 11:21 LONDON SALDAÑA MD Nov 15, 2016 15:45
--- NOTE | 2016-11-15 14:34 | PDOC ---
PROGRESS NOTES Subjective Subjective Patient feeling better. Still very weak. PT recc SNU care. Objective Objective Vital Signs Date Time Temp Pulse Resp B/P Pulse Ox O2 Delivery O2 Flow Rate FiO2 11/15/16 10:43 97.9 103 20 160/69 96 Room Air 97.9 11/15/16 03:00 2.0 Intake and Output 11/15/16 07:00 Intake Total 860 ml Output Total 1450 ml Balance -590 ml Intake Oral 860 ml Output Urine Total 1450 ml Physical Exam Abdomen: Normal bowel sounds Heart: Regular rate Extremities: No edema General: Alert Lungs: Clear to auscultation Assessment Assessment Problems Medical Problems: (1) Abnormal EKG Status: Acute (2) Acute electrocardiogram changes Status: Acute (3) Fatigue Status: Acute (4) Generalized weakness Status: Acute UTI Viral bronchitis Debilitation PVD Hx of bladder CA with ileostomy Plan Plan of Care Await urine Clx Transfer to floor D/C albuterol due to poor tolerance Continue PT eval and treat To SNU in AM Comment Review of Relevant I have reviewed the following items morales (where applicable) has been applied. Labs Laboratory Tests Test 11/13/16 17:07 11/13/16 18:30 11/13/16 20:57 11/13/16 21:44 Glucose (Fingerstick) 89mg/dL (70-99) 59mg/dL (70-99) 95mg/dL (70-99) Troponin I Quantitative < 0.017ng/mL (0.000-0.055) Test 11/13/16 23:15 11/14/16 00:15 11/14/16 05:05 11/14/16 08:24 Heparin Anti-Xa Act, Unfractionated 0.24IU/mL (0.30-0.70) 0.39IU/mL (0.30-0.70) Troponin I Quantitative < 0.017ng/mL (0.000-0.055) < 0.017ng/mL (0.000-0.055) White Blood Count 3.7x10^3/uL (4.0-11.0) Red Blood Count 3.32x10^6/uL (4.30-5.70) Hemoglobin 10.2g/dL (13.0-17.5) Hematocrit 29.9% (39.0-53.0) Mean Corpuscular Volume 90fL (79-100) Mean Corpuscular Hemoglobin 31pg (25-35) Mean Corpuscular Hemoglobin Concent 34g/dL (31-37) Red Cell Distribution Width 14.4% (11.5-14.5) Platelet Count 212x10^3/uL (140-400) Sodium Level 141mmol/L (136-145) Potassium Level 3.7mmol/L (3.5-5.1) Chloride Level 106mmol/L (98-107) Carbon Dioxide Level 22mmol/L (21-32) Anion Gap 13 (6-14) Blood Urea Nitrogen 38mg/dL (8-26) Creatinine 1.7mg/dL (0.7-1.3) Estimated GFR (Cockcroft-Gault) 39.5 Glucose Level 63mg/dL (70-99) Calcium Level 8.7mg/dL (8.5-10.1) Magnesium Level 1.7mg/dL (1.8-2.4) Triglycerides Level 166mg/dL (0-150) Cholesterol Level 122mg/dL (0-200) LDL Cholesterol, Calculated 64mg/dL (0-100) VLDL Cholesterol, Calculated 33mg/dL (0-40) HDL Cholesterol 25mg/dL (40-60) Cholesterol/HDL Ratio 4.9 Glucose (Fingerstick) 87mg/dL (70-99) Test 11/14/16 11:56 11/14/16 17:23 11/14/16 20:36 11/15/16 05:18 Glucose (Fingerstick) 188mg/dL (70-99) 130mg/dL (70-99) 180mg/dL (70-99) White Blood Count 4.0x10^3/uL (4.0-11.0) Red Blood Count 3.13x10^6/uL (4.30-5.70) Hemoglobin 9.4g/dL (13.0-17.5) Hematocrit 28.6% (39.0-53.0) Mean Corpuscular Volume 92fL (79-100) Mean Corpuscular Hemoglobin 30pg (25-35) Mean Corpuscular Hemoglobin Concent 33g/dL (31-37) Red Cell Distribution Width 14.5% (11.5-14.5) Platelet Count 190x10^3/uL (140-400) Neutrophils (%) (Auto) 56% (31-73) Lymphocytes (%) (Auto) 27% (24-48) Monocytes (%) (Auto) 16% (0-9) Eosinophils (%) (Auto) 1% (0-3) Basophils (%) (Auto) 1% (0-3) Neutrophils # (Auto) 2.3x10^3uL (1.8-7.7) Lymphocytes # (Auto) 1.1x10^3/uL (1.0-4.8) Monocytes # (Auto) 0.6x10^3/uL (0.0-1.1) Eosinophils # (Auto) 0.0x10^3/uL (0.0-0.7) Basophils # (Auto) 0.0x10^3/uL (0.0-0.2) Heparin Anti-Xa Act, Unfractionated < 0.10IU/mL (0.30-0.70) Sodium Level 140mmol/L (136-145) Potassium Level 3.9mmol/L (3.5-5.1) Chloride Level 106mmol/L (98-107) Carbon Dioxide Level 20mmol/L (21-32) Anion Gap 14 (6-14) Blood Urea Nitrogen 45mg/dL (8-26) Creatinine 2.0mg/dL (0.7-1.3) Estimated GFR (Cockcroft-Gault) 32.7 Glucose Level 179mg/dL (70-99) Calcium Level 8.9mg/dL (8.5-10.1) Test 11/15/16 07:34 11/15/16 12:15 Glucose (Fingerstick) 183mg/dL (70-99) 279mg/dL (70-99) Laboratory Tests Test 11/14/16 17:23 11/14/16 20:36 11/15/16 05:18 11/15/16 07:34 Glucose (Fingerstick) 130mg/dL (70-99) 180mg/dL (70-99) 183mg/dL (70-99) White Blood Count 4.0x10^3/uL (4.0-11.0) Red Blood Count 3.13x10^6/uL (4.30-5.70) Hemoglobin 9.4g/dL (13.0-17.5) Hematocrit 28.6% (39.0-53.0) Mean Corpuscular Volume 92fL (79-100) Mean Corpuscular Hemoglobin 30pg (25-35) Mean Corpuscular Hemoglobin Concent 33g/dL (31-37) Red Cell Distribution Width 14.5% (11.5-14.5) Platelet Count 190x10^3/uL (140-400) Neutrophils (%) (Auto) 56% (31-73) Lymphocytes (%) (Auto) 27% (24-48) Monocytes (%) (Auto) 16% (0-9) Eosinophils (%) (Auto) 1% (0-3) Basophils (%) (Auto) 1% (0-3) Neutrophils # (Auto) 2.3x10^3uL (1.8-7.7) Lymphocytes # (Auto) 1.1x10^3/uL (1.0-4.8) Monocytes # (Auto) 0.6x10^3/uL (0.0-1.1) Eosinophils # (Auto) 0.0x10^3/uL (0.0-0.7) Basophils # (Auto) 0.0x10^3/uL (0.0-0.2) Heparin Anti-Xa Act, Unfractionated < 0.10IU/mL (0.30-0.70) Sodium Level 140mmol/L (136-145) Potassium Level 3.9mmol/L (3.5-5.1) Chloride Level 106mmol/L (98-107) Carbon Dioxide Level 20mmol/L (21-32) Anion Gap 14 (6-14) Blood Urea Nitrogen 45mg/dL (8-26) Creatinine 2.0mg/dL (0.7-1.3) Estimated GFR (Cockcroft-Gault) 32.7 Glucose Level 179mg/dL (70-99) Calcium Level 8.9mg/dL (8.5-10.1) Test 11/15/16 12:15 Glucose (Fingerstick) 279mg/dL (70-99) Microbiology 11/13/16 Urine Culture - Preliminary, Resulted 11/13/16 Urine Culture Result 1 (SHENG) - Preliminary, Resulted Medications Current Medications Sodium Chloride (Iv Sodium Chloride 0.9% 1000ml Bag) 1,000 ml @ 1,000 mls/hr Q1H IV Last administered on 11/13/16 11:32; Start 11/13/16 at 10:56; Stop at 11:55; Status DC Acetaminophen (Tylenol) 1,000 mg 1X ONCE PO Last administered on 11/13/16 11: 33; Start 11/13/16 at 11:00; Stop 11/13/16 at 11:01; Status DC Aspirin (Children'S Aspirin) 324 mg 1X ONCE PO Last administered on 11/13/16 13:05; Start 11/13/16 at 12:15; Stop 11/13/16 at 12:17; Status DC Heparin Sodium (Porcine) 4000 unit 4,000 unit 1X ONCE IV Last administered on 11/13/16 13:08; Start 11/13/16 at 13:00; Stop 11/13/16 at 13:01; Status DC Heparin Sodium/ Dextrose 500 ml @ 0 mls/hr CONT PRN IV SEE I/O RECORD Last administered on 11/13/16 17:10; Start 11/13/16 at 12:30; Stop 11/14/16 at 17:33; Status DC Heparin Sodium (Porcine) 1,950 unit PRN Q6HRS PRN IV FOR UFH LEVEL LESS THAN 0.2; Start 11/13/16 at 12:30; Stop 11/14/16 at 17:33; Status DC Ondansetron HCl (Zofran) 4 mg PRN Q8HRS PRN IV NAUSEA/VOMITING; Start 11/13/16 at 12:30; Stop 11/14/16 at 12:29; Status DC Morphine Sulfate 2 mg PRN Q2HR PRN IV PAIN; Start 11/13/16 at 12:30; Stop at 12:29; Status DC Acetaminophen (Tylenol) 650 mg PRN Q4HRS PRN PO FEVER; Start 11/13/16 at 12:30; Stop 11/14/16 at 12:29; Status DC Nitroglycerin (Nitrostat) 0.4 mg PRN Q5MIN PRN SL CHEST PAIN; Start 11/13/16 at 12:30; Stop 11/14/16 at 12:29; Status DC Insulin Aspart (Novolog) 0-7 UNITS TIDWMEALS SQ Last administered on 11/15/16 13:03; Start 11/13/16 at 17:00; Stop 11/15/16 at 14:28; Status DC Dextrose 12.5 gm PRN Q15MIN PRN IV SEE COMMENTS; Start 11/13/16 at 12:30; Stop 11/15/16 at 14:28; Status DC Amlodipine Besylate (Norvasc) 10 mg DAILY PO Last administered on 11/15/16 08: 33; Start 11/14/16 at 09:00 Aspirin (Children'S Aspirin) 81 mg DAILY PO Last administered on 11/15/16 08:32 ; Start 11/14/16 at 09:00 Gemfibrozil (Lopid) 600 mg BID PO Last administered on 11/15/16 08:33; Start at 21:00 Losartan Potassium (Cozaar) 50 mg DAILY PO Last administered on 11/15/16 08:32 ; Start 11/14/16 at 09:00 Pantoprazole Sodium (Protonix) 40 mg DAILYAC PO Last administered on 11/15/16 08:33; Start 11/14/16 at 07:30 Atorvastatin Calcium (Lipitor) 5 mg QHS PO Last administered on 11/14/16 21:14 ; Start 11/13/16 at 21:00 Info (Anti-Coagulation Monitoring By Pharmacy) 1 each PRN DAILY PRN MC SEE COMMENTS Last administered on 11/14/16 12:57; Start 11/14/16 at 13:00; Stop at 17:36; Status DC Budesonide (Pulmicort) 0.5 mg RTBID NEB Last administered on 11/15/16 07:39; Start 11/14/16 at 20:00 Albuterol/ Ipratropium (Duoneb) 3 ml RTQID NEB Last administered on 11/15/16 12 :07; Start 11/14/16 at 16:00; Stop 11/15/16 at 14:28; Status DC Guaifenesin 1 tab 1 tab BID PO Last administered on 11/15/16 08:42; Start at 21:00 Ceftriaxone Sodium/Sodium Chloride (Rocephin/Iv Sodium Chloride 0.9% 50ml) 50 ml @ 100 mls/hr Q24H IV Last administered on 11/14/16t 17:53; Start 11/14/16 at 18:00 Glipizide (Glucotrol) 5 mg DAILYWBKFT PO ; Start 11/16/16 at 08:00 Glipizide (Glucotrol) 10 mg DAILYBFRSUP PO ; Start 11/15/16 at 17:00 Active Scripts Active Reported Omeprazole 40 Mg Capsule.dr 1 Cap PO DAILY Amlodipine Besylate 10 Mg Tablet 10 Mg PO DAILY Aspirin 81 Mg Tab.chew 1 Tab PO DAILY Gemfibrozil 600 Mg Tablet 1 Tab PO BID Pravastatin Sodium 20 Mg Tablet 1 Tab PO DAILY Losartan Potassium 100 Mg Tablet 50 Mg PO DAILY Vitals/I & O Vital Sign - Last 24 Hours 11/14/16 11/14/16 11/14/16 11/14/16 15:00 16:11 19:45 20:22 Temp 97.7 97.8 97.7 97.8 Pulse 70 101 Resp 18 20 B/P 114/53 155/69 Pulse Ox 95 97 96 O2 Delivery Room Air Room Air Room Air Room Air 11/14/16 11/14/16 11/14/16 11/15/16 21:21 21:22 23:51 03:00 Temp 98.2 97.7 98.2 97.7 Pulse 92 75 Resp 18 20 B/P 103/60 142/59 Pulse Ox 97 97 93 96 O2 Delivery Room Air Room Air Room Air Nasal Cannula O2 Flow Rate 2.0 11/15/16 11/15/16 11/15/16 11/15/16 07:38 07:39 08:00 08:32 Temp 97.8 97.8 Pulse 86 111 Resp 20 B/P 125/60 126/60 Pulse Ox 96 97 O2 Delivery Room Air Room Air Room Air 11/15/16 11/15/16 08:33 10:43 Temp 97.9 97.9 Pulse 111 103 Resp 20 B/P 125/60 160/69 Pulse Ox 96 O2 Delivery Room Air Intake and Output 11/14/16 11/14/16 11/15/16 15:00 23:00 07:00 Intake Total 420 ml 440 ml Output Total 700 ml 750 ml Balance -280 ml -310 ml MARIANO DEJESUS MD Nov 15, 2016 14:34
[2016-11-15 14:43] VITALS: BP 102/51
[2016-11-15] MEDS ORDERED: GLIPIZIDE 5 MG TABLET PO SCH (17:00)
[2016-11-15] MEDS: CEFTRIAXONE SODIUM 1 GM in IV NORMAL SALINE 50ML 50 ML IV SCH (18:30)
[2016-11-15 19:00] VITALS: BP 135/56
[2016-11-15] MEDS: ATORVASTATIN CALCIUM 10 MG TABLET. PO SCH (21:04)
[2016-11-15 23:00] VITALS: BP 132/60
[2016-11-16 03:00] VITALS: BP 150/62
[2016-11-16 07:00] VITALS: BP 179/55
[2016-11-16] MEDS: BUDESONIDE 0.5 MG/2 ML NEBU NEB SCH (07:25)
[2016-11-16] MEDS ORDERED: GLIPIZIDE 5 MG TABLET PO SCH (08:00)
[2016-11-16] MEDS: GEMFIBROZIL 600 MG TABLET. PO SCH (08:36)
[2016-11-16] MEDS: ASPIRIN 81 MG TAB.CHEW PO SCH (08:36)
[2016-11-16] MEDS: PANTOPRAZOLE 40 MG TABLET. PO SCH (08:36)
[2016-11-16] MEDS: AMLODIPINE BESYLATE 10 MG TABLET PO SCH (08:37)
[2016-11-16] MEDS: GUAIFENESIN DM 600/30MG TAB.ER.12H. PO SCH (08:38)
[2016-11-16] MEDS: LOSARTAN POTASSIUM 50 MG TABLET. PO SCH (08:38)
[2016-11-16] MEDS ORDERED: GLIP5TAB10 PO ×2 (09:15)
[2016-11-16] MEDS ORDERED: GUAI-42 PO (09:15)
[2016-11-16] MEDS ORDERED: LEVO500T38 PO (09:15)
[2016-11-16] MEDS ORDERED: FURO-68 PO (09:50)
[2016-11-16] MEDS ORDERED: LEVOFLOXACIN 250 MG TABLET. PO SCH (10:00)
[2016-11-16] MEDS ORDERED: LEVOFLOXACIN 500 MG TABLET PO SCH (10:00)
[2016-11-16 11:00] VITALS: BP 134/66
[2016-11-16 15:00] VITALS: BP 116/64
[2016-11-17] MEDS ORDERED: FUROSEMIDE 40 MG TABLET PO SCH (09:00)
== END 2016-11-16 17:50 | DRG 191 ==
LOC: ER 10:14 → 2 NORTH 12:22 → 5 SOUTH 11-15 17:05
PROVIDERS: ADMIT Family Medicine; ATTEND Family Medicine
DX: J44.0 Chronic obstructive pulmonary disease with (acute) lower respiratory infection (principal); N39.0 Urinary tract infection, site not specified; J44.1 Chronic obstructive pulmonary disease with (acute) exacerbation; D64.9 Anemia, unspecified; E03.9 Hypothyroidism, unspecified; E78.2 Mixed hyperlipidemia; K21.9 Gastro-esophageal reflux disease without esophagitis; J20.8 Acute bronchitis due to other specified organisms; I10 Essential (primary) hypertension; I25.10 Atherosclerotic heart disease of native coronary artery without angina pectoris; M19.90 Unspecified osteoarthritis, unspecified site; I45.10 Unspecified right bundle-branch block; E11.51 Type 2 diabetes mellitus with diabetic peripheral angiopathy without gangrene; Z85.51 Personal history of malignant neoplasm of bladder; Z95.1 Presence of aortocoronary bypass graft; R53.1 Weakness
CPT/HCPCS: 36415; 71010; 74020; 80048; 80061; 80076; 81001; 82947; 83735; 84484; 85027; 85520; 85610; 85730; 87086; 87186; 87804; 93005; 93306; 94250; 94640; 94760; 96361; 96374; J0696; J1815; J7030; J7620; 97110; 97116; 97530; 99285-25

== ENCOUNTER → 2017-02-17 | Outpatient (CLI) | payer MEDICARE, OTHER ==
[~2017-02-17] MED LIST: AMLO10TA2 PO; ASPI81TA2 PO; FURO-68 PO; GEMF600T3 PO; GLIP5TAB10 PO; GUAI-42 PO; LEVO500T38 PO; LOSA100T6 PO; OMEP40CA5 PO; PRAV20TA2 PO; REGADENOSON 0.4 MG/5 ML DISP.SYRIN. IV ONE
--- NOTE | 2017-02-17 15:13 | RAD ---
APPROVED REPORT Test Type: Pharmacological Stress Nurse/Tech: Xiomara Mary R.N. Test Indications: CAD, CABG Cardiac History: CABG 2007, HTN, High lipids Medications: SEE EMR Medical History: SEE EMR Resting ECG: SR with PVC's Resting Heart Rate: 75 bpm Resting Blood Pressure: 132/57mmHg Pretest Chest Pain: None Nurse/Tech Notes S1S2, lungs CTA, diminished in bases, denied chest pain, dizziness or SOA. Consent: The procedure was explained to the patient in lay terms. Informed consent was witnessed. Jose eout was entered into [facility] ([facility]). History and Stress Test performed by Xiomara Mary R.N. Pharm. Details Pharmacologic stress testing was performed using 0.4mg per 5ml of regadenoson given intravenously ove r 7-10 seconds. Stress Symptoms SOA, epigastric upset, multiple PVC's. POST EXERCISE Reason for Termination: Infusion complete Max HR: 105 bpm Max Blood Pressure: 147/59mmHg Blood Pressure response to exercise: Normal blood pressure response during stress. Heart Rate response to exercise: Normal Chest Pain: No. Arrhythmia: Yes. Multiple PVC's ST Change: Yes. Please evaluate ST changes in multiple leads. INTERPRETATION Stress EKG Conclusion: Significant PVC's with adenosine injection. No evidence of gross ischemia. Imaging Protocol IMAGE PROTOCOL: Rest Tc-99m/stress Tc-99m 1 day Rest: Stress: Viability: Radiopharm.Tc99m [id number] Sestamibi Dose11.2mCi 34mCi Duration 20min. 15min. Img Date 02/17/2017 02/17/2017 Inj-Img [id number]. 6min. Rest Admin Site:IV - Left AntecubitalAdministrator:REGAN Mcknight Stress Admin Site: IV - Left AntecubitalAdministrator: RT Andriy (R)(N) STRESS DATA End Diast. Vol.69.0mlAv. Heart Rate90.0bpm LVEDV index BSA1.0mlCardiac Output0.1L/min End Syst. Vol.16.0mlCO Index BSA4.7L/min LVESV index BSA0.0mlMyocardial Wtnm960.0g Eject. Pvlhmzvn30.0% Stress Rates Pk. Fill Rate3.10EDV/secLVtime Pk. Fill 163.81msec Pk. Empty Rate4.40ESV/secLVtime Pk. Bywdq299.65msec 11/09 Pk. Fill1.66EDV/sec Stress Scores Regional WT2.00Summed WT16.00 Regional WM0.00Summed WM2.00 The rest and stress images show normal perfusion, normal contraction and thickening. LV Perf. Quant 17 Seg. SSS0.00 17 Seg. SRS3.00 17 Seg. SDS0.00 Stress Defect Extent (% LAD)0.00Rest Defect Extent (% LAD)14.40Rev. Defect Extent (% LAD)0.00 Stress Defect Extent (% LCX) 0.00Rest Defect Extent (% LCX)18.80Rev. Defect Extent (% LCX)0.00 Stress Defect Extent (% RCA)0.00Rest Defect Extent (% RCA)0.00Rev. Defect Extent (% RCA)0.00 Stress Defect Extent (% SAMEERA)0.00Rest Defect Extent (% SAMEERA)8.50Rev. Defect Extent (% SAMEERA)0.00 Other Information Quality:Good Risk Assessment: Low-Moderate Risk Conclusion 1. Stress EKG with multiple frequent PVC's, suggestive but not diagnostic of ischemia. 2. Normal perfusion at stress/rest. No evidence of TID. 3. Normal EF at > 60% 4. Low to moderate risk study based on frequent PVC's with vasodilator stress resting.
== END | disposition home or self-care (01) ==
LOC: NM 09:49
PROVIDERS: ATTEND Internal Medicine Cardiovascular Disease
DX: I25.708 Atherosclerosis of coronary artery bypass graft(s), unspecified, with other forms of angina pectoris (principal); I10 Essential (primary) hypertension; E11.9 Type 2 diabetes mellitus without complications; Z86.79 Personal history of other diseases of the circulatory system; Z79.01 Long term (current) use of anticoagulants; Z85.51 Personal history of malignant neoplasm of bladder
CPT/HCPCS: 78452; 93017; 96374; 96375; 96376; A9500; J2785

== ENCOUNTER 2017-04-07 22:19 | Inpatient (IN) | payer MEDICARE ==
[~2017-04-07] VITALS: Ht 172.7 cm; Wt 75.8 kg
[~2017-04-07 22:19] MED LIST changes: -REGADENOSON 0.4 MG/5 ML DISP.SYRIN. IV ONE
[2017-04-07 22:50] LABS: BASO % 0 % (0-3); EOS % 7 % (0-3); HEMATOCRIT 28.7 % (39.0-53.0); HEMOGLOBIN 9.6 g/dL (13.0-17.5); LYMPH # 1.3 x10^3/uL (1.0-4.8); LYMPH % 18 % (24-48); MEAN CORPUSCULAR HEMOGLOBIN 31 pg (25-35); MEAN CORPUSCULAR HGB CONC 33 g/dL (31-37); MEAN CORPUSCULAR VOLUME 94 fL (79-100); MONO % 11 % (0-9); NEUT % 65 % (31-73); PLATELET COUNT 211 x10^3/uL (140-400); RED BLOOD COUNT 3.06 x10^6/uL (4.30-5.70); RED CELL DISTRIBUTION WIDTH 14.4 % (11.5-14.5); WHITE BLOOD COUNT 7.2 x10^3/uL (4.0-11.0)
[2017-04-07 22:58] LABS: CALCIUM 8.7 mg/dL (8.5-10.1); CREATININE 1.8 mg/dL (0.7-1.3); POTASSIUM 4.2 mmol/L (3.5-5.1)
[2017-04-07 23:04] LABS: ALBUMIN 3.8 g/dL (3.4-5.0); DIRECT BILIRUBIN 0.1 mg/dL (0.0-0.2); TOTAL BILIRUBIN 0.4 mg/dL (0.2-1.0); TOTAL PROTEIN 8.1 g/dL (6.4-8.2)
[2017-04-07] MEDS ORDERED: ASPIRIN 325 MG TABLET PO ONE (23:30)
--- NOTE | 2017-04-07 23:30 | PHYS DOC ---
Past Medical History Past Medical History: CAD, Cancer, COPD, Diabetes-Type II, GERD, High Cholesterol, Hypertension Additional Past Medical Histor: bladder cancer Past Surgical History: Cancer Surgery, Coronary Bypass Surgery, Other Additional Past Surgical Histo: bladder removed, foot sx, UROSTOMY, HERNIA REPAIR Alcohol Use: None Drug Use: None Adult General Chief Complaint Chief Complaint: SHORTNESS OF BREATH HPI HPI Patient is a 76 year old male who presents with dyspnea when he laid down for bed tonight. Notes dyspnea started upon laying flat. He states he does not usually have this. EMS set him up, and he started feeling better. He is currently without dyspnea. He also notes some mild abdominal bloating associated with multiple episodes of loose stools throughout today that were nonbloody. He notes slight abdominal discomfort in his epigastrium. He does note some general fatigue today. He denies chest pain, cough, hemoptysis, leg pain or swelling, fever or chills, palpitations, diaphoresis, exertional symptoms, lightheadedness, nausea or vomiting. Review of Systems Review of Systems Constitutional: Denies fever or chills [] Eyes: Denies change in visual acuity, redness, or eye pain [] HENT: Denies nasal congestion or sore throat [] Respiratory: Denies cough [] Cardiovascular: No additional information not addressed in HPI [] GI: Denies nausea, vomiting, bloody stools [] : Denies dysuria or hematuria [] Musculoskeletal: Denies back pain or joint pain [] Integument: Denies rash or skin lesions [] Neurologic: Denies headache, focal weakness or sensory changes [] Endocrine: Denies polyuria or polydipsia [] Current Medications Current Medications Current Medications Medications (Trade) Dose Ordered Sig/[facility] Start Time Stop Time Status Last Admin Dose Admin Aspirin (Emily Aspirin) 325 mg 1X ONCE 04/07/17 23:30 04/07/17 23:31 DC 04/07/17 23:23 325 MG Enoxaparin Sodium (Lovenox 80mg Syringe) 80 mg 1X ONCE 04/07/17 23:45 04/07/17 23:46 Allergies Allergies Allergies Coded Allergies Type Severity Reaction Last Updated Verified metformin Allergy Intermediate 11/15/16 Yes pioglitazone Allergy Intermediate 11/15/16 Yes Physical Exam Physical Exam Constitutional: Well developed, well nourished, no acute distress, non-toxic appearance. [] HENT: Normocephalic, atraumatic, bilateral external ears normal, oropharynx moist, nose normal. [] Eyes: PERRLA, EOMI. [] Neck: Normal range of motion, supple. [] Cardiovascular:Heart rate regular rhythm [] Lungs & Thorax: Bilateral breath sounds clear to auscultation [] Abdomen: Bowel sounds normal, soft, no tenderness. Urostomy to right lower quadrant. [] Skin: Warm, dry, no erythema, no rash. [] Back: No tenderness, no CVA tenderness. [] Extremities: No tenderness, ROM intact, trace bilateral pretibial edema. [] Neurologic: Alert and oriented X 3, normal motor function, normal sensory function, no focal deficits noted. [] Psychologic: Affect normal, judgement normal, mood normal. [] Current Patient Data Vital Signs Vital Signs Date Time Temp Pulse Resp B/P (MAP) Pulse Ox O2 Delivery O2 Flow Rate FiO2 04/07/17 22:40 104 20 151/76 (101) 98 Room Air Lab Values Laboratory Tests Test 04/07/17 22:30 White Blood Count 7.2 x10^3/uL (4.0-11.0) Red Blood Count 3.06 x10^6/uL (4.30-5.70) L Hemoglobin 9.6 g/dL (13.0-17.5) L Hematocrit 28.7 % (39.0-53.0) L Mean Corpuscular Volume 94 fL (79-100) Mean Corpuscular Hemoglobin 31 pg (25-35) Mean Corpuscular Hemoglobin Concent 33 g/dL (31-37) Red Cell Distribution Width 14.4 % (11.5-14.5) Platelet Count 211 x10^3/uL (140-400) Neutrophils (%) (Auto) 65 % (31-73) Lymphocytes (%) (Auto) 18 % (24-48) L Monocytes (%) (Auto) 11 % (0-9) H Eosinophils (%) (Auto) 7 % (0-3) H Basophils (%) (Auto) 0 % (0-3) Neutrophils # (Auto) 4.7 x10^3uL (1.8-7.7) Lymphocytes # (Auto) 1.3 x10^3/uL (1.0-4.8) Monocytes # (Auto) 0.8 x10^3/uL (0.0-1.1) Eosinophils # (Auto) 0.5 x10^3/uL (0.0-0.7) Basophils # (Auto) 0.0 x10^3/uL (0.0-0.2) Sodium Level 135 mmol/L (136-145) L Potassium Level 4.2 mmol/L (3.5-5.1) Chloride Level 101 mmol/L (98-107) Carbon Dioxide Level 22 mmol/L (21-32) Anion Gap 12 (6-14) Blood Urea Nitrogen 39 mg/dL (8-26) H Creatinine 1.8 mg/dL (0.7-1.3) H Estimated GFR (Cockcroft-Gault) 37.0 Glucose Level 266 mg/dL (70-99) H Calcium Level 8.7 mg/dL (8.5-10.1) Total Bilirubin 0.4 mg/dL (0.2-1.0) Direct Bilirubin 0.1 mg/dL (0.0-0.2) Aspartate Amino Transferase (AST) 27 U/L (15-37) Alanine Aminotransferase (ALT) 20 U/L (16-63) Alkaline Phosphatase 121 U/L (46-116) H Troponin I Quantitative 0.697 ng/mL (0.000-0.055) QC-Lhl-R-Type Natriuretic Peptide 2745 pg/mL (0-449) H Total Protein 8.1 g/dL (6.4-8.2) Albumin 3.8 g/dL (3.4-5.0) Lipase 341 U/L (73-393) Laboratory Tests 04/07/17 22:30 Laboratory Tests 04/07/17 22:30 EKG EKG EKG as interpreted by me as sinus tachycardia with interventricular block, rate 106, no ST-T changes, PVC and PAC Radiology/Procedures Radiology/Procedures Chest x-ray as interpreted by me with mild cephalization of pulmonary vasculature, otherwise nonacute Course & Med Decision Making Course & Med Decision Making Pertinent Labs and Imaging studies reviewed. (See chart for details) Appears well on exam. Laboratory evaluation reveals elevation in troponin and proBNP. He largely remains asymptomatic at this time. Discussed case with Dr. Baird, cardiology, who agrees with dose of Lovenox and admission for trend of troponin. Discussed case with Dr. Briggs, who will admit. Dragon Disclaimer Dragon Disclaimer This electronic medical record was generated, in whole or in part, using a voice recognition dictation system. Departure Departure Impression: Primary Impression: Dyspnea Additional Impression: Elevated troponin Disposition: ADMITTED INPATIENT Condition: STABLE Referrals: ALBERTO BRIGGS MD (PCP) Problem Qualifiers Primary Impression: Dyspnea Dyspnea type: orthopnea Qualified Codes: R06.01 - Orthopnea Shahram DHALIWAL MD Apr 07, 2017 23:30
[2017-04-07] MEDS ORDERED: ONDANSETRON PF 4 MG/2 ML VIAL. IV PRN (23:45)
[2017-04-07] MEDS ORDERED: NITROGLYCERIN SUBLINGUAL 0.4 MG BOTTLE OF 25. SL PRN (23:45)
[2017-04-07] MEDS ORDERED: fentaNYL PF VIAL 100 MCG/2 ML VIAL IV PRN (23:45)
[2017-04-07] MEDS ORDERED: ACETAMINOPHEN 325 MG TABLET. PO PRN (23:45)
[2017-04-07] MEDS ORDERED: LOVA20TA2 PO (23:48)
[2017-04-08] VITALS (16 sets, daily range): BP systolic 116–179; BP diastolic 49–111
--- NOTE | 2017-04-08 06:16 | EKG ---
[facility] [address] [place] [address] Test Date: 2017-04-07 Test Time: 22:30:12 Pat Name: PAUL BELLO Department: Room: Gender: M [employer] Blood Bank: : 1940 Requested By: Shahram DHALIWAL Order Number: [id number] Reading MD: Measurements Intervals [place] Rate: 106 P: [place]: QRS: 90 QRSD: 130 T: -147 QT: 334 QTc: 445 Interpretive Statements ATRIAL FIB./FLUTTER WITH RAPID VENTRICULAR RESPONSE VENTRICULAR PREMATURE COMPLEX(ES) RIGHT BUNDLE BRANCH BLOCK RVH WITH REPOLARIZATION ABNORMALITY RI6.01 Unconfirmed report No previous ECG available for comparison
--- NOTE | 2017-04-08 07:30 | RAD ---
Exam: AP portable chest. History: Dyspnea. Comparison: 11/13/2016. Findings: The heart and mediastinal structures are within normal limits for size. Lungs are without infiltrate. No pneumothorax or pleural effusion is appreciated. Median sternotomy wires are present. Aortic atherosclerosis is seen. Impression: 1. No acute cardiopulmonary process.
--- NOTE | 2017-04-08 08:24 | ACF ---
Admission Forms Criteria CARDIOLOGY GRG Clinical Indications for Admission to Inpatient Care ( Place 'X' for any and all applicable criteria): Hospital admission is needed for appropriate care of the patient because of ANY ONE of the following (1): [ ] I. Hemodynamic instability as indicated by ALL of the following (1)(2)(3) (4)(5) [ ]a) Vital signs or other findings not as expected for chronic patient condition or baseline [ ]b) Instability indicated by ANY ONE of the following: [ ]i) Hypotension [ ]ii) Symptomatic Tachycardia unresponsive to treatment ( e.g., analgesia, fluids, sedation as indicated) [ ]iii) Inadequate perfusion indicated by ANY ONE of the following: [ ] 1) Lactic acidosis (> 2 mmol/L) [ ] 2) New abnormal capillary refill (> 3 seconds) [ ] 3) Reduced urine output [ ] 4) New altered mental status [ ]iv) Orthostatic vital sign changes unresponsive to treatment (e.g., fluids) [ ]v) IV inotropic or vasopressor medication required to maintain adequate blood pressure or perfusion [ ] II. Severe heart failure as indicated by ANY ONE of the following(17)(18) [ ]a) Respiratory distress [ ]b) Hypotension [ ]c) Anasarca (refractory to outpatient therapy) [ ]d) Cardiac arrhythmias of immediate concern [ ]e) Myocardial ischemia [ ] III. Cardiac arrhythmias or findings of immediate concern indicated by ANY ONE of the following (19)(20): [ ] a) Heart rhythms that are inherently dangerous or unstable indicated by ANY ONE of the following (21)(22)(23): [ ] i) Resuscitated ventricular fibrillation or cardiac arrest [ ] ii) Ventricular escape rhythm [ ] iii) Sustained ventricular tachycardia (30 seconds or more of ventricular rhythm at greater than 100 beats per minute) [ ] iv) Nonsustained ventricular tachycardia and ANY ONE of the following: [ ] 1) Suspected cardiac ischemia as cause or consequence of ventricular tachycardia [ ] 2) In setting of acute myocarditis [ ] b) Unstable cardiac conduction defects indicated by ANY ONE of the following(23)(24)(25) [ ] i) Type II second-degree atrioventricular block [ ]ii) Third-degree atrioventricular block [ ]iii) New-onset left bundle branch block with suspected myocardial ischemia [ ]c) Any heart rhythm and ANY ONE of the following (21)(22)(26)(27) (28) [ ] i) Continuous long-term ECG monitoring needed (e.g., initiation of drug requiring monitoring for more than 24 hours) [ ] ii) Patient has automatic implanted cardioverter defibrillator that is repeatedly firing, malfunctioning, or in need of immediate adjustment of settings beyond the scope of ambulatory or observation care [ ]d) Heart rhythms of concern due to ANY ONE of the following: [ ] i) Hypotension [ ] ii) Respiratory distress [ ] iii) Association with other significant symptoms (e.g., bradycardia with syncope or ongoing dizziness, supraventricular tachycardia with chest pain (14)(15)(17) [ ] IV. Monitoring for cardiac contusion beyond the scope of observation care needed [A](30)(31)(32) [ ] V. Surgical or device complication (e.g., valve replacement complication , pacemaker dysfunction) (35)(41)(44)(45)(46) [ ] . Inpatient palliative care needed. [B](49) Also use Inpatient Palliative Care Criteria [ ] VII. Nonbacterial thrombotic (marantic) endocarditis (36)(43)(47)(48) [X] VIII. Cardiology condition, symptom, or finding for which emergency and observation care has failed or are not considered appropriate. [ ] IX. Acute valvular disease requiring inpatient as indicated by ANY ONE of the following (41) [ ]a) Acute valvular regurgitation (42) [ ]b) Noninfectious valvulitis (43) [ ]c) Obstructive valve thrombosis [ ]d) Paravalvular leak [ ]e) Other significant valvular disorder remaining after emergency or observation level of care (as appropriate) [ ]X. Pericardial disease requiring inpatient treatment as indicated by ANY ONE of the following (33)(34)(35)(36)(37) [ ]a) Suspected tamponade (38)(39)(40) [ ]b) Hemopericardium [ ]c) Other significant pericardial disorder remaining after emergency or observation level of care (as appropriate) [ ] XI. Cardiac ischemia beyond scope of emergency and observation care. [ ] XII. Hypertension requiring inpatient treatment as indicated by ANY ONE of the following (6)(7)(8) [ ]a) SBP greater than 220 mm Hg or DBP greater than 120 mmHg despite treatment [ ]b) SBP greater than 140 mm Hg or DBP greater than 100 mm Hg with evidence of acute end organ damage as indicated by ANY ONE of the following [ ] i) Encephalopathy [ ] ii) Acute renal failure as indicated by new onset of ANY ONE of the following (9)(10)(11)(12)(13) [ ]1) 3-fold rise in serum creatinine from baseline [ ]2) Serum creatinine greater than 4 mg/dL ( 354 micromoles/L) with acute rise greater than 0.5 mg/dL (44.2 micromoles/L) [ ]3) Reduction of more than 75% in estimated glomerular filtration rate from baseline [ ]4) Estimated glomerular filtration rate less than 35 mL/min/1.73m2 (0.59 mL/sec/1.73m2) in child up to 18 years of age [ ]5) Cessation of urine output indicated by ALL of the following [ ]A. Adequate volume status [ ]B. Inadequate urine output as indicated by ANY ONE of the following [ ]a. Urine output less than 0.3 mL/kg/hr for 24 hours [ ]b. Anuria (urine output less than 0.1 mL/kg/hr) for 12 hours [ ] iii) Aortic dissection [ ] iv) Myocardial Ischemia [ ] v) Left ventricular heart failure [ ]vi) Retinal Hemorrhage [ ]vii) Other significant finding [ ]c) Hypertension in child requiring inpatient treatment as indicated by ALL of the following(14)(15)(16) [ ] i) Outpatient treatment not effective, not available, or not appropriate [ ]ii) SBP or DBP greater than 95th percentile for age [ ]iii) Evidence of acute end organ damage as indicated by ANY ONE of the following [ ]1) Altered mental status [ ]2) Acute renal failure as indicated by new onset of ANY ONE of the following(9)(10)(11)(12)(13) [ ]A. 3-fold rise in serum creatinine from baseline [ ]B. Serum creatinine greater than 4 mg/dL (354 micromoles/L) with acute rise greater than 0.5 mg/dL (44.2 micromoles/L) [ ]C. Reduction of more than 75% in estimated glomerular filtration rate from baseline [ ]D. Estimated glomerular filtration rate less than 35 mL/min/1.73m2 (0.59 mL/sec/1.73m2) in child up to 18 years of age [ ]E. Cessation of urine output indicated by ALL of the following [ ]a. Adequate volume status [ ]b. Inadequate urine output as indicated by ANY ONE of the following [ ]i) Urine output less than 0.3 mL/kg/hr for 24 hours [ ]ii) Anuria ( urine output less than 0.1 mL/kg/hr) for 12 hours [ ]3) Severe headache [ ]4) Visual disturbance [ ]5) Retinal hemorrhage [ ]6) Other significant finding [ ]XIII. Complications of transplanted heart indicated by ANY ONE of the following(61): [ ]a) Acute graft rejection requiring inpatient management (eg, intravenous immunosuppression)(62)(63) [ ]b) Acute graft heart failure indicated by ANY ONE of the following(64): [ ]i) Hemodynamic instability [ ]ii) Cardiac arrhythmias of immediate concern [ ]iii) Pulmonary edema that is very severe (eg, mechanical ventilation needed, imminent or likely, need for 100% oxygen to keep oxygen saturation above 90%) [ ]iv) Pulmonary edema that is persistent as indicated by ALL of the following: [ ]1) New need for oxygen therapy to keep oxygen saturation above 90% (or increased FiO2 need from baseline) [ ]2) Has not improved sufficiently with emergency department or observation care IV diuretics or other heart failure treatments[E] [ ]v) Altered mental status that is severe or persistent [ ]vi) Increased creatinine (new on laboratory test) with reduction of more than 50% in estimated glomerular filtration rate from baseline [ ]vii) Progressively (ongoing) rising creatinine (known from past laboratory test) with reduction of more than 25% in estimated glomerular filtration rate from baseline [ ]viii) Acute renal failure [ ]ix) Acute peripheral ischemia (eg, examination shows pulseless, cool, mottled, or cyanotic extremity) [ ]x) Pulmonary artery catheter monitoring needed [ ]xi) Other sign or symptom of heart failure requiring inpatient treatment (ie, too severe or not responsive to outpatient and observation care treatment) [ ]c) Infection requiring inpatient management (eg, Hemodynamic instability, need for intravenous antimicrobial treatment)(66)(67)(68)(69)(70) [ ]d) Cardiac allograft vasculopathy requiring inpatient management ( eg evidence of cardiac ischemia)(71) [ ]e) Other complication of transplanted heart (eg, stroke, severe pulmonary hypertension, severe valvular dysfunction) requiring inpatient management(72) The original [facility] content created by [facility] has been revised. The portions of the content which have been revised are identified through the use of italic text or in bold, and [facility] has neither reviewed nor approved the modified material. All other unmodified content is copyright [facility]. Please see references footnoted in the original [facility] edition 2016 Admission Criteria Met?: Yes CHRIS LEON Apr 08, 2017 08:24
--- NOTE | 2017-04-08 08:25 | PDOC ---
PROGRESS NOTES Subjective Subjective Patient c/o some diffuse abdominal pain, denies chest pain or SOA at this time. Objective Objective Vital Signs Date Time Temp Pulse Resp B/P (MAP) Pulse Ox O2 Delivery O2 Flow Rate FiO2 04/08/17 07:55 98.0 82 18 124/50 (74) 95 Room Air 98.0 Intake and Output 04/08/17 07:00 Intake Total 0 ml Output Total 850 ml Balance -850 ml Intake Oral 0 ml Output Urine Total 850 ml Physical Exam Abdomen: Normal bowel sounds, Soft, No tenderness Heart: Regular rate Extremities: No edema General: Alert, Oriented X3, No acute distress Lungs: Clear to auscultation Assessment Assessment Problems Medical Problems: (1) Dyspnea Status: Acute (2) Elevated troponin Status: Acute Plan Plan of Care 1. SOA with possible NSTEMI - initial Troponin was only mildly elevated but second one this AM is over 9. Patient had normal echo 11/23 and mildly abnormal MPI last month. Denies any chest pain recently. SOA has resolved and he is not hypoxic on RA. CXR was without vascular congestion or infiltrate. Patient presently NPO, awaiting further evaluation per Dr Baird. 2. CKD III - patient appears mildly dehydrated on admission lab. Will start IVF while he is NPO and follow lab. 3. DM2 - has been well controlled with home meds, resume when no longer NPO and follow [facility]SB[facility]. 4. HTN - continue home meds. 5. anemia - mild, chronic. Appears stable. 6. COPD - appears stable, patient does not use inhalers at home. Comment Review of Relevant I have reviewed the following items morales (where applicable) has been applied. Labs Laboratory Tests Test 04/07/17 22:30 04/08/17 05:00 White Blood Count 7.2 x10^3/uL (4.0-11.0) Red Blood Count 3.06 x10^6/uL (4.30-5.70) Hemoglobin 9.6 g/dL (13.0-17.5) Hematocrit 28.7 % (39.0-53.0) Mean Corpuscular Volume 94 fL (79-100) Mean Corpuscular Hemoglobin 31 pg (25-35) Mean Corpuscular Hemoglobin Concent 33 g/dL (31-37) Red Cell Distribution Width 14.4 % (11.5-14.5) Platelet Count 211 x10^3/uL (140-400) Neutrophils (%) (Auto) 65 % (31-73) Lymphocytes (%) (Auto) 18 % (24-48) Monocytes (%) (Auto) 11 % (0-9) Eosinophils (%) (Auto) 7 % (0-3) Basophils (%) (Auto) 0 % (0-3) Neutrophils # (Auto) 4.7 x10^3uL (1.8-7.7) Lymphocytes # (Auto) 1.3 x10^3/uL (1.0-4.8) Monocytes # (Auto) 0.8 x10^3/uL (0.0-1.1) Eosinophils # (Auto) 0.5 x10^3/uL (0.0-0.7) Basophils # (Auto) 0.0 x10^3/uL (0.0-0.2) Sodium Level 135 mmol/L (136-145) Potassium Level 4.2 mmol/L (3.5-5.1) Chloride Level 101 mmol/L (98-107) Carbon Dioxide Level 22 mmol/L (21-32) Anion Gap 12 (6-14) Blood Urea Nitrogen 39 mg/dL (8-26) Creatinine 1.8 mg/dL (0.7-1.3) Estimated GFR (Cockcroft-Gault) 37.0 Glucose Level 266 mg/dL (70-99) Calcium Level 8.7 mg/dL (8.5-10.1) Total Bilirubin 0.4 mg/dL (0.2-1.0) Direct Bilirubin 0.1 mg/dL (0.0-0.2) Aspartate Amino Transf (AST/SGOT) 27 U/L (15-37) Alanine Aminotransferase (ALT/SGPT) 20 U/L (16-63) Alkaline Phosphatase 121 U/L (46-116) Troponin I Quantitative 0.697 ng/mL (0.000-0.055) 9.836 ng/mL (0.000-0.055) CQ-Ayk-O-Type Natriuretic Peptide 2745 pg/mL (0-449) Total Protein 8.1 g/dL (6.4-8.2) Albumin 3.8 g/dL (3.4-5.0) Lipase 341 U/L (73-393) Laboratory Tests Test 04/07/17 22:30 04/08/17 05:00 White Blood Count 7.2 x10^3/uL (4.0-11.0) Red Blood Count 3.06 x10^6/uL (4.30-5.70) Hemoglobin 9.6 g/dL (13.0-17.5) Hematocrit 28.7 % (39.0-53.0) Mean Corpuscular Volume 94 fL (79-100) Mean Corpuscular Hemoglobin 31 pg (25-35) Mean Corpuscular Hemoglobin Concent 33 g/dL (31-37) Red Cell Distribution Width 14.4 % (11.5-14.5) Platelet Count 211 x10^3/uL (140-400) Neutrophils (%) (Auto) 65 % (31-73) Lymphocytes (%) (Auto) 18 % (24-48) Monocytes (%) (Auto) 11 % (0-9) Eosinophils (%) (Auto) 7 % (0-3) Basophils (%) (Auto) 0 % (0-3) Neutrophils # (Auto) 4.7 x10^3uL (1.8-7.7) Lymphocytes # (Auto) 1.3 x10^3/uL (1.0-4.8) Monocytes # (Auto) 0.8 x10^3/uL (0.0-1.1) Eosinophils # (Auto) 0.5 x10^3/uL (0.0-0.7) Basophils # (Auto) 0.0 x10^3/uL (0.0-0.2) Sodium Level 135 mmol/L (136-145) Potassium Level 4.2 mmol/L (3.5-5.1) Chloride Level 101 mmol/L (98-107) Carbon Dioxide Level 22 mmol/L (21-32) Anion Gap 12 (6-14) Blood Urea Nitrogen 39 mg/dL (8-26) Creatinine 1.8 mg/dL (0.7-1.3) Estimated GFR (Cockcroft-Gault) 37.0 Glucose Level 266 mg/dL (70-99) Calcium Level 8.7 mg/dL (8.5-10.1) Total Bilirubin 0.4 mg/dL (0.2-1.0) Direct Bilirubin 0.1 mg/dL (0.0-0.2) Aspartate Amino Transf (AST/SGOT) 27 U/L (15-37) Alanine Aminotransferase (ALT/SGPT) 20 U/L (16-63) Alkaline Phosphatase 121 U/L (46-116) Troponin I Quantitative 0.697 ng/mL (0.000-0.055) 9.836 ng/mL (0.000-0.055) MN-Urr-H-Type Natriuretic Peptide 2745 pg/mL (0-449) Total Protein 8.1 g/dL (6.4-8.2) Albumin 3.8 g/dL (3.4-5.0) Lipase 341 U/L (73-393) Medications Current Medications Aspirin (Emily Aspirin) 325 mg 1X ONCE PO Last administered on 04/07/17 23:23 ; Start 04/07/17 at 23:30; Stop 04/07/17 at 23:31; Status DC Enoxaparin Sodium (Lovenox 80mg Syringe) 80 mg 1X ONCE SQ Last administered on 04/07/17 23:38; Start 04/07/17 at 23:45; Stop 04/07/17 at 23:46; Status DC Ondansetron HCl (Zofran) 4 mg PRN Q8HRS PRN IV NAUSEA/VOMITING; Start 04/07/17 at 23:45; Stop 04/08/17 at 23:44 Fentanyl Citrate (Fentanyl 2ml Vial) 50 mcg PRN Q2HR PRN IV PAIN; Start at 23:45; Stop 04/08/17 at 23:44 Acetaminophen (Tylenol) 650 mg PRN Q4HRS PRN PO FEVER; Start 04/07/17 at 23:45; Stop 04/08/17 at 23:44 Nitroglycerin (Nitrostat) 0.4 mg PRN Q5MIN PRN SL CHEST PAIN; Start 04/07/17 at 23:45; Stop 04/08/17 at 23:44 Active Scripts Active Lasix (Furosemide) 40 Mg Tablet 1 Tab PO DAILY Mucinex Dm Er 600-30 Mg Tablet (Guaifenesin/Dextromethorphan) 1 Each Tab.er.12h 1 Tab PO BID Glipizide 5 Mg Tablet 5 Mg PO DAILYWBKFT Glipizide 5 Mg Tablet 10 Mg PO DAILYBFRSUP Levaquin (Levofloxacin) 500 Mg Tablet 1 Tab PO DAILY Reported Lovastatin 20 Mg Tablet 1 Tab PO DAILY Omeprazole 40 Mg Capsule.dr 1 Cap PO DAILY Amlodipine Besylate 10 Mg Tablet 10 Mg PO DAILY Aspirin 81 Mg Tab.chew 1 Tab PO DAILY Gemfibrozil 600 Mg Tablet 1 Tab PO BID Losartan Potassium 100 Mg Tablet 50 Mg PO DAILY Vitals/I & O Vital Sign - Last 24 Hours 04/07/17 04/07/17 04/07/17 04/07/17 22:40 22:53 23:23 23:53 Pulse 104 98 98 94 Resp 20 20 21 B/P (MAP) 151/76 (101) 172/88 (116) 146/65 (92) 145/61 (89) Pulse Ox 98 97 96 97 O2 Delivery Room Air Room Air Room Air Room Air 04/08/17 04/08/17 04/08/17 04/08/17 00:20 01:00 03:32 07:55 Temp 97.7 98.3 98.0 97.7 98.3 98.0 Pulse 77 75 82 Resp 20 18 18 B/P (MAP) 144/70 (94) 133/65 (87) 124/50 (74) Pulse Ox 95 95 95 O2 Delivery Room Air Room Air Room Air Room Air Intake and Output 04/07/17 04/07/17 04/08/17 15:00 23:00 07:00 Intake Total 0 ml Output Total 850 ml Balance -850 ml ALBERTO ELLSWORTH MD Apr 08, 2017 08:25
[2017-04-08] MEDS ORDERED: DEXTROSE 50% 25 GM / 50ML DISP.SYRIN. IV PRN (08:30)
--- NOTE | 2017-04-08 08:56 | HP ---
ADMIT DATE: 04/08/2017 CHIEF COMPLAINT: Shortness of breath. HISTORY OF PRESENT ILLNESS: The patient is a 76-year-old male with a history of coronary artery disease who presented to the Emergency Room with the above complaint. He reported the abrupt onset of feeling of shortness of breath when he was in bed on the evening of admission. He founded difficult to lay flat, which was unusual for him. When this feeling persisted he called the paramedics and was brought to the Emergency Room. Initial evaluation there included a chest x-ray, which was without acute findings. An EKG is reported to show sinus tachycardia with no ST segment changes. The patient was found to have a mild increase in his troponin to 0.697. His proBNP was also quite elevated at 2745. Cardiology was consulted and he was admitted for further treatment. PAST MEDICAL HISTORY: Coronary artery disease, diabetes mellitus type 2, hypertension, hyperlipidemia, bladder cancer, peripheral vascular disease. PAST SURGICAL HISTORY: Coronary artery bypass grafting, bladder resection with urostomy, bilateral femoral popliteal bypass, ORIF right foot, hernia repair. ALLERGIES: THE PATIENT IS ALLERGIC OR INTOLERANT TO METFORMIN AND PIOGLITAZONE. HOME MEDICATIONS: Lasix 40 mg daily, amlodipine 10 mg daily, aspirin 81 mg daily, gemfibrozil 600 mg b.i.d., glipizide 5 mg a.m. and 10 mg p.m., losartan 50 mg daily, lovastatin 20 mg daily, omeprazole 40 mg daily. FAMILY HISTORY: Noncontributory. SOCIAL HISTORY: The patient is and lives by himself in a senior citizens apartment. He has a long smoking history, but quit smoking in 2007. He does not drink alcohol to excess. REVIEW OF SYSTEMS: The patient denies fever or chills. He denies any chest pain or palpitations. He denies cough or other episodes of shortness of breath. He has some chronic intermittent abdominal pain, which has not worsened recently. He had diarrhea yesterday, but this appears to have improved and he did not see blood in his stool. He noticed decreased urine output from his urostomy yesterday. He denies lower extremity edema. PHYSICAL EXAMINATION: GENERAL: The patient is alert and oriented x 3, resting comfortably in bed in no acute distress. HEENT: PERRL, EOMI, sclerae clear. Oropharynx: Mucous membranes moist. NECK: Supple without lymphadenopathy. CHEST: Breath sounds mildly decreased throughout, but otherwise clear to auscultation. CARDIOVASCULAR: Regular rhythm without murmur. ABDOMEN: Soft, nontender, normoactive bowel sounds are present. A urostomy is in place with a small amount of clear yellow urine in the bag. EXTREMITIES: Bilateral lower extremities are without edema. ASSESSMENT AND PLAN: 1. Shortness of air with possible non-ST elevated myocardial infarction. The patient's second troponin I is 9.836. He still does not complain of any chest pain. Dr. Baird is aware of this lab result. The patient had an echocardiogram in 11/2016, which was within normal limits. He had an MPI last month as an outpatient, which was of low to moderate probability for ischemia due to multiple premature ventricular contractions that were seen during infusion. 2. Chronic kidney disease stage 3. The patient appeared mildly dehydrated on admission labs. We will start intravenous fluids while he is n.p.o. and follow his lab. 3. Diabetes mellitus type 2. This has been well controlled with his home medication. We will resume these when he is no longer n.p.o. 4. Hypertension. This has been well controlled. Continue his usual medications. 5. Anemia. This is mild and has been chronic for him. His hemoglobin appears stable at this time. 6. Chronic obstructive pulmonary disease. This appears stable and the patient does not use an inhaler or nebulized breathing treatments at home. ALEBRTO ELLSWORTH MD DR: ANNELIESE/emiliano JOB#: [id number] / [id number] SALONI
[2017-04-08] MEDS: amLODIPine BESYLATE 10 MG TABLET PO SCH (09:00)
[2017-04-08] MEDS: IV NORMAL SALINE 1000ML BAG 1,000 ML IV SCH ×2 (09:00→19:00)
[2017-04-08] MEDS ORDERED: ASPIRIN CHEWABLE 81 MG TABLET. PO SCH (09:00)
[2017-04-08] MEDS: GEMFIBROZIL 600 MG TABLET. PO SCH ×2 (09:00→16:30)
[2017-04-08] MEDS: LOSARTAN POTASSIUM 50 MG TABLET. PO SCH (09:00)
[2017-04-08] MEDS: PANTOPRAZOLE 40 MG TABLET.DR. PO SCH (09:00)
--- NOTE | 2017-04-08 09:07 | PDOC2 ---
PRACHI PORTILLO LAST PICKER 04/08/17 0907: CARDIAC CONSULT DATE OF CONSULT Date of Consult DATE: 04/08/17 TIME: 08:59 REASON FOR CONSULT Reason for Consult: Elevated troponin REFERRING PHYSICIAN Referring Physician: Selvin SOURCE Source: Chart review, Patient HISTORY OF PRESENT ILLNESS HISTORY OF PRESENT ILLNESS This is a pleasant 76 yo male admitted for multiple complains. Reports of shoulder discomfort, epigastric discomfort, SOA particularly when laying down which is now absent, also with dull abdominal pain and reports of chronic loose stools. He lives alone and was moving boxes 20-30 pounds heavy yesterday prior to him having symptoms. He noted SEARS and constellations of symptoms such as previously mentioned started happening. Denies any chest pain or palpitations but he has been feeling some fatigue lately. Denies any PND. or significant leg swelling. Verbalized compliance with his cardiac regimen. PAST MEDICAL HISTORY Cardiovascular: CAD, HTN, Hyperlipidemia, Other (PAD) Pulmonary: No pertinent hx CENTRAL NERVOUS SYSTEM: Other (No pertinent history) GI: GERD, Other (diarrhea) Heme/Onc: Cancer (prostate) Hepatobiliary: No pertinent hx Psych: No pertinent hx Musculoskeletal: Osteoarthritis Rheumatologic: No pertinent hx Infectious disease: No pertinent hx ENT: No pertinent hx Renal/: UTI, Hematuria, Other (bladder CA) Endocrine: Diabetes (2) Dermatology: No pertinent hx, Other (skin tear left elbow) PAST SURGICAL HISTORY Past Surgical History: CABG, Other (bladder removal with ileal conduit placement and left ankle surgery with hardware) FAMILY HISTORY Family History noncontributory SOCIAL HISTORY Smoke: No ALCOHOL: none Drugs: None CURRENT MEDICATIONS CURRENT MEDICATIONS Current Medications Medications (Trade) Dose Ordered Sig/Evelyne Route PRN Reason Start Time Stop Time Status Last Admin Dose Admin Aspirin (Emily Aspirin) 325 mg 1X ONCE PO 04/07/17 23:30 04/07/17 23:31 DC 04/07/17 23:23 Enoxaparin Sodium (Lovenox 80mg Syringe) 80 mg 1X ONCE SQ 04/07/17 23:45 04/07/17 23:46 DC 04/07/17 23:38 ALLERGIES ALLERGIES: Coded Allergies: metformin (Verified Allergy, Intermediate, 11/15/16) pioglitazone (Verified Allergy, Intermediate, 11/15/16) ROS Review of System 14 point ROS evaluated with pertinent positives noted per HPI PHYSICAL EXAM General: Alert, Oriented X3, Cooperative, No acute distress HEENT: Atraumatic, Mucous membr. moist/pink Lungs: Clear to auscultation, Normal air movement Heart: Regular rate (SR), Normal S1, Normal S2, Other (2/6 systolic murmur to LLS border) Abdomen: Soft, No tenderness, Other (RLQ ileal conduit with pink stoma) Extremities: No cyanosis, Other (trace LE edema) Skin: No breakdown, No significant lesion, Other (generealized ecchymoses) Neuro: Normal speech, Sensation intact Psych/Mental Status: Mental status NL, Mood NL MUSCULOSKELETAL: Osteoarthritic changes both hands VITALS VITALS Vital Signs Date Time Temp Pulse Resp B/P (MAP) Pulse Ox O2 Delivery O2 Flow Rate FiO2 04/08/17 08:00 Room Air 04/08/17 07:55 98.0 82 18 124/50 (74) 95 98.0 LABS Lab: Laboratory Tests Test 04/07/17 22:30 04/08/17 05:00 White Blood Count 7.2 x10^3/uL (4.0-11.0) Red Blood Count 3.06 x10^6/uL (4.30-5.70) Hemoglobin 9.6 g/dL (13.0-17.5) Hematocrit 28.7 % (39.0-53.0) Mean Corpuscular Volume 94 fL (79-100) Mean Corpuscular Hemoglobin 31 pg (25-35) Mean Corpuscular Hemoglobin Concent 33 g/dL (31-37) Red Cell Distribution Width 14.4 % (11.5-14.5) Platelet Count 211 x10^3/uL (140-400) Neutrophils (%) (Auto) 65 % (31-73) Lymphocytes (%) (Auto) 18 % (24-48) Monocytes (%) (Auto) 11 % (0-9) Eosinophils (%) (Auto) 7 % (0-3) Basophils (%) (Auto) 0 % (0-3) Neutrophils # (Auto) 4.7 x10^3uL (1.8-7.7) Lymphocytes # (Auto) 1.3 x10^3/uL (1.0-4.8) Monocytes # (Auto) 0.8 x10^3/uL (0.0-1.1) Eosinophils # (Auto) 0.5 x10^3/uL (0.0-0.7) Basophils # (Auto) 0.0 x10^3/uL (0.0-0.2) Sodium Level 135 mmol/L (136-145) Potassium Level 4.2 mmol/L (3.5-5.1) Chloride Level 101 mmol/L (98-107) Carbon Dioxide Level 22 mmol/L (21-32) Anion Gap 12 (6-14) Blood Urea Nitrogen 39 mg/dL (8-26) Creatinine 1.8 mg/dL (0.7-1.3) Estimated GFR (Cockcroft-Gault) 37.0 Glucose Level 266 mg/dL (70-99) Calcium Level 8.7 mg/dL (8.5-10.1) Total Bilirubin 0.4 mg/dL (0.2-1.0) Direct Bilirubin 0.1 mg/dL (0.0-0.2) Aspartate Amino Transf (AST/SGOT) 27 U/L (15-37) Alanine Aminotransferase (ALT/SGPT) 20 U/L (16-63) Alkaline Phosphatase 121 U/L (46-116) Troponin I Quantitative 0.697 ng/mL (0.000-0.055) 9.836 ng/mL (0.000-0.055) UG-Pos-L-Type Natriuretic Peptide 2745 pg/mL (0-449) Total Protein 8.1 g/dL (6.4-8.2) Albumin 3.8 g/dL (3.4-5.0) Lipase 341 U/L (73-393) ECHOCARDIOGRAM ECHOCARDIOGRAM <Conclusion> The left ventricle is normal size. The left ventricular systolic function is normal and the ejection fraction is within normal range. LV ejection fraction is 55-60%. There is no significant aortic valvular stenosis. Doppler and Color Flow revealed no significant aortic regurgitation. Doppler and Color Flow revealed slight mitral valve regurgitation. Doppler and Color Flow revealed mild tricuspid regurgitation. There is no evidence of significant pericardial effusion. DATE: 11/14/16 1703 STRESS TEST STRESS TEST Conclusion 1. Stress EKG with multiple frequent PVC's, suggestive but not diagnostic of ischemia. 2. Normal perfusion at stress/rest. No evidence of TID. 3. Normal EF at > 60% 4. Low to moderate risk study based on frequent PVC's with vasodilator stress resting. DATE: 02/17/17 1513 ASSESSMENT/PLAN ASSESSMENT/PLAN 1. NSTEMI: with atypical symptoms. Peaking at 14.2. lovenox last night 2. Acute CHF with possible diastolic/systolic dysfunction: better. Negative for orthopnea currently. UOP adequate. 3. CAD: CABG in 2006 4. Suspect CKD: noted Cr at 1.7 and 2.0 with proteinuria from previous admission. Currently at 1.8, baseline? 5. Anemia likely from chronic disease. Hgb 9.6 6. Hx of bladder CA with bladder removal and ileal conduit placement: follow closely with outp urology, has f/u next week 7. Chronic Diarrhea: has been intermittently happening since his bladder surgery. Per PCP 8. PAD: with hx of 2007 bilateral fem pop. No significant claudication symptoms. 9. Chronic microscopic hematuria/UTI? per PCP 10. DM2/HLP 11. HTN: controlled Recommendations 1. [facility] risks and benefits explained and agreeable to proceed 2. IVF and renal prep initiated 3. Continue with secondary prevention 4. Will be cautious with any diurese with recurring loose sometimes watery stool 5. TSH, lipids Problems: LONDON SALDAÑA MD 04/08/17 1832: CARDIAC CONSULT ALLERGIES ALLERGIES: Coded Allergies: metformin (Verified Allergy, Intermediate, 11/15/16) pioglitazone (Verified Allergy, Intermediate, 11/15/16) ASSESSMENT/PLAN ASSESSMENT/PLAN Patient seen and examined. Agree with COMMUNITY RELATIONS DIRECTOR's assessment and plan. Patient with history of coronary artery disease s/p coronary artery bypass surgery presently with non-STEMI. We will proceed with cardiac catheterization and possible angioplasty. We will hydrate intravenously for acute on chronic renal insufficiency. PAD status stable. Thank you for your consultation. Problems: PRACHI PORTILLO APRN Apr 08, 2017 09:07 LONDON SALDAÑA MD Apr 08, 2017 18:32
[2017-04-08] MEDS ORDERED: IV NORMAL SALINE 1000ML BAG 1,000 ML IV SCH (09:29)
[2017-04-08 09:32] LABS: MAGNESIUM 1.8 mg/dL (1.8-2.4)
[2017-04-08 10:26] LABS: BILIRUBIN,URINE NEGATIVE (NEG); GLUCOSE,URINE NEGATIVE (NEG); NITRITE,URINE NEGATIVE (NEG); PH,URINE 8.5; PROTEIN,URINE 30 mg/dL (NEG-TRACE); UROBILINOGEN,URINE 0.2 mg/dL (0.2 mg/dL)
[2017-04-08 10:46] LABS: RBC,URINE FOBS /HPF (0-2)
[2017-04-08 10:47] LABS: BACTERIA,URINE MANY /HPF (0-FEW); WBC,URINE FOBS /HPF (0-4)
[2017-04-08] MEDS: ACETYLCYSTEINE 20% ORAL SOLN 600 MG/3 ML SYRINGE. PO SCH ×2 (11:00→21:09)
[2017-04-08] MEDS ORDERED: LIDOCAINE 2% 20 ML VIAL. ONE (15:40)
[2017-04-08] MEDS ORDERED: IODIXANOL 320 MG/ML 100 ML VIAL. ONE (15:41)
[2017-04-08] MEDS: glipiZIDE 5 MG TABLET PO SCH ×2 (17:00→19:41)
[2017-04-08] MEDS ORDERED: fentaNYL PF VIAL 100 MCG/2 ML VIAL ONE (17:30)
[2017-04-08] MEDS ORDERED: MIDAZOLAM HCL/PF 2 MG/2 ML VIAL. ONE (17:31)
--- NOTE | 2017-04-08 17:45 | CARD ---
APPROVED REPORT EXAM: Two-dimensional and M-mode echocardiogram with Doppler and color Doppler. Other Information Quality : Good INDICATION Non STEMI 2D DIMENSIONS RVDd3.0 (2.9-3.5cm)Left Atrium(2D)4.1 (1.6-4.0cm) IVSd0.9 (0.7-1.1cm)Aortic Root(2D)2.8 (2.0-3.7cm) LVDd4.9 (3.9-5.9cm)LVOT Diameter2.3 (1.8-2.4cm) PWd0.9 (0.7-1.1cm)LVDs4.1 (2.5-4.0cm) FS (%) 17.5 %SV41.5 ml LVEF(%)40.0 (>50%) Aortic Valve AoV Peak Claus.133.0cm/Dada Peak GR.7.1mmHg Mitral Valve MV E Rdmsniso15.8cm/sMV DECEL EAMF064st MV A Zqfxxrmt756.4cm/sE/A Ratio0.8 TDI Lateral E' P. V7.53cm/sMedial E' P. V8.82cm/s E/Lateral E'11.7E/Medial E'10.0 Tricuspid Valve TR P. Gnhoukat235sv/sRAP [id number] TR Peak Gr.95deHpLMZY99maUo Pulmonary Vein S1 Hwlkzjzu24.2cm/sS2 Zvpqyqbp76.95cm/s D2 Rstyeaep04.0cm/s LEFT VENTRICLE The left ventricle is normal size. There is normal left ventricular wall thickness. The Ejection Frac tion is 35-40%. There is severe hypokinesis of the anterolateral, anterior and shantell-septal paez. C annot rule out inferior wall hypokinesis. Transmitral Doppler flow pattern is Grade I-abnormal relaxa tion pattern. RIGHT VENTRICLE The right ventricle is normal size. The right ventricular systolic function is normal. ATRIA The left atrium is mildly dilated. The right atrium size is normal. The interatrial septum is intact with no evidence for an atrial septal defect or patent foramen ovale as noted on 2-D or Doppler imagi ng. AORTIC VALVE The aortic valve is calcified but opens well. Doppler and Color Flow revealed no significant aortic r egurgitation. There is no significant aortic valvular stenosis. MITRAL VALVE The mitral valve is normal in structure and function. There is no evidence of mitral valve prolapse. There is no mitral valve stenosis. Doppler and Color Flow revealed no mitral valve regurgitation note d. TRICUSPID VALVE The tricuspid valve is normal in structure and function. Doppler and Color Flow revealed trace to mil d tricuspid regurgitation. There is moderate pulmonary hypertension. The PA pressure was estimated at 51 mmHg. There is no tricuspid valve stenosis. PULMONIC VALVE Doppler and Color Flow revealed mild pulmonic valvular regurgitation. There is no pulmonic valvular s tenosis. GREAT VESSELS The aortic root is normal in size. The ascending aorta is normal in size. The IVC is normal in size a nd collapses >50% with inspiration. PERICARDIAL EFFUSION There is no evidence of significant pericardial effusion. Critical Notification Critical Value: No <Conclusion> The Ejection Fraction is 35-40%. There is severe hypokinesis of the anterolateral, anterior and shantell-septal paez. Cannot rule out i nferior wall hypokinesis. Doppler and Color Flow revealed trace to mild tricuspid regurgitation. There is moderate pulmonary hy pertension. The PA pressure was estimated at 51 mmHg.
[2017-04-08] MEDS ORDERED: BIVALIRUDIN 250 MG VIAL. IV ONE ×2 (17:56→18:15)
[2017-04-08] MEDS ORDERED: MIDAZOLAM HCL/PF 2 MG/2 ML VIAL. IV ONE (18:00)
[2017-04-08] MEDS ORDERED: CONTRAST GIVEN MC PRN (18:00)
[2017-04-08] MEDS ORDERED: LIDOCAINE 2% 20 ML VIAL. IJ ONE (18:00)
[2017-04-08] MEDS ORDERED: fentaNYL PF VIAL 100 MCG/2 ML VIAL IV ONE (18:00)
[2017-04-08] MEDS ORDERED: IODIXANOL 320 MG/ML 100 ML VIAL. IART ONE (18:00)
[2017-04-08] MEDS ORDERED: CLOPIDOGREL BISULFATE 75 MG TABLET PO ONE (18:15)
[2017-04-08] MEDS ORDERED: NITROGLYCERIN 200 MCG/2 ML SYRINGE FOR CATH/VASC LAB. ICAR ONE (18:15)
[2017-04-08] MEDS ORDERED: CLOPIDOGREL BISULFATE 75 MG TABLET ONE (18:26)
[2017-04-08] MEDS ORDERED: NITROGLYCERIN 200 MCG/2 ML SYRINGE FOR CATH/VASC LAB. ONE (18:26)
--- NOTE | 2017-04-08 18:33 | PDOC ---
MODERATE SEDATION ASSESSMENT RISKS/ALTERNATIVES Risks/Alternatives Risks and alternatives of this type of sedation and procedure discussed with: RISK/ALTERNATIVES: Patient H & P ON CHART H & P H & P on chart and reviewed for co-morbid conditions and appropriate labs. H&P ON CHART: Yes STATUS PREG STATUS ASSESSED: N/A MEDS/ALLERGIES REVIEWED Meds/Allergies Reviewed Medications and Allergies including time and route of recently administered narcotics and sedatives. MEDS/ALLERGIES REVIEWED: Yes ASA RATING ASA RATING: II AIRWAY ASSESSMENT Airway Assessment Airway patency, oral function limitations, presence of caps, crowns, dentures, partials, and ability to extend neck assessed. AIRWAY ASSESSMENT: Yes MALLAMPATI SCORE MALLAMPATI SCORE: II PRE-SEDATION ASSESSMENT PRE-SEDATION ASSESSMENT: Yes LONDON SALDAÑA MD Apr 08, 2017 18:33
[2017-04-08] MEDS ORDERED: NITROGLYCERIN SUBLINGUAL 0.4 MG BOTTLE OF 25. SL PRN (18:45)
[2017-04-08] MEDS ORDERED: ACETAMINOPHEN 325 MG TABLET. PO PRN (18:45)
--- NOTE | 2017-04-08 18:47 | CARD ---
APPROVED REPORT Procedure(s) performed: 1. Left Heart Catheterization, selective coronary angiography, selective ang iography of the bypass grafts 2. Successful PCI/drug eluting stents placement to the saphenous vein graft to left circumflex arter y INDICATION The indication(s) include : non-STEMI . PROCEDURE NARRATIVE After explaining the risks, benefits and alternative options, informed consent was obtained from eli ent. Patient was brought to the cardiac [employer] and his right groin was prepped and draped in the us ual fashion. 20 mL of 2% lidocaine was infiltrated into the skin and subcutaneous tissues for local a nesthesia. Arterial access was obtained in the right common femoral artery and 6 Trinidadian sheath was in serted. 6 Trin[place] JL4 and 6 Trinidadian JR4 catheters were used to perform selective angiography of the lef t and right coronary arteries. The 6 Trinid[place] JR4 catheter was then used to perform selective angiograp hy of the saphenous vein graft to the right coronary artery and also the saphenous vein graft to the obtuse marginal branch of left circumflex artery. 6 Trinidadian IM catheter was used to perform selective angiography of the sequential left internal mammary artery graft to diagonal branch and the left ante rior descending artery. Left ventriculography was not performed due to elevated creatinine level. The following findings were noted. FINDINGS 1. The left main coronary artery arose from the left sinus of Valsalva, gave rise to the left anteri or descending and left circumflex arteries and showed 50% stenosis in the midsegment. 2. The left anterior descending artery showed 100% occlusion in the midsegment. 3. The left circumflex artery showed 99% stenosis involving the ostial and proximal segments. 4. The right coronary artery showed a long 80% stenosis involving the midsegment. 5. The saphenous vein graft to the right cornea artery showed 30% stenosis in the proximal segment. No critical stenoses were noted. Distal to the anastomosis, the posterior descending branch showed 40 % stenosis in the proximal segment. 6. The saphenous vein graft to the obtuse marginal branch of left circumflex artery showed tandem 80 % and 90% stenoses in the distal segment. 7. The sequential left internal mammary artery graft to the diagonal branch and the left anterior de scending artery was widely patent. INTERVENTION The saphenous vein graft to the obtuse marginal branch of left circumflex artery was engaged with a 6 Trin[place] LCB guide catheter. The tandem stenoses in the distal segment of the graft fit crossed into t he obtuse marginal branch with a 0.014 inch [employer] guidewire. The distalmost lesion was predi lated with a 2.5 x 15 mm trek balloon. This lesion was then treated with a 2.75 x 8 mm Xience Alpine drug-eluting stent. The lesion proximal to this stenosis was then treated directly with a 4.0 x 23 mm Xience Alpine drug-eluting stent. Follow-up angiography showed resolution of the stenosis with ROCHELLE- 3 distal flow. Patient part of the procedure well. Hemostasis in the right groin was achieved using P erclose suture closure device. There were no immediate complications. Conclusion 1. Coronary artery disease s/p coronary artery bypass surgery as stated above with patent sequential left internal mammary artery graft to the diagonal branch and the left anterior descending artery, p atent saphenous vein graft to the right coronary artery, 80-90% stenosis involving the saphenous vein graft to the obtuse marginal branch of left circumflex artery. 2. Successful PCI/drug eluting stents placement to the saphenous vein graft to the obtuse marginal b ranch of left circumflex artery. Recommendations 1. Aspirin 325 mg daily 2. Plavix 75 mg daily for preferably one year 3. Cardiovascular risk factor modification.
[2017-04-08] MEDS ORDERED: ATORVASTATIN CALCIUM 10 MG TABLET. PO SCH (21:00)
[2017-04-08] MEDS: IV 1/2 NORMAL SALINE 1,000 ML IV SCH (21:16)
[2017-04-09 00:30] VITALS: BP 124/73
[2017-04-09 01:30] VITALS: BP 149/65
[2017-04-09 02:30] VITALS: BP 152/70
[2017-04-09 03:35] VITALS: BP 152/70
[2017-04-09] MEDS: IV NORMAL SALINE 1000ML BAG 1,000 ML IV SCH (05:00)
[2017-04-09 05:48] LABS: CALCIUM 8.9 mg/dL (8.5-10.1); CREATININE 1.3 mg/dL (0.7-1.3); GFR 53.8; POTASSIUM 4.1 mmol/L (3.5-5.1)
[2017-04-09 07:00] VITALS: BP 160/65
[2017-04-09] MEDS ORDERED: CLOPIDOGREL BISULFATE 75 MG TABLET PO SCH (08:00)
[2017-04-09] MEDS ORDERED: CARVEDILOL 3.125 MG TABLET. PO SCH (08:00)
[2017-04-09] MEDS ORDERED: ASPIRIN ENTERIC COATED 325 MG TABLET.DR. PO SCH (08:00)
[2017-04-09] MEDS: GEMFIBROZIL 600 MG TABLET. PO SCH (09:04)
[2017-04-09] MEDS: PANTOPRAZOLE 40 MG TABLET.DR. PO SCH (09:04)
[2017-04-09] MEDS: amLODIPine BESYLATE 10 MG TABLET PO SCH (09:06)
[2017-04-09] MEDS: LOSARTAN POTASSIUM 50 MG TABLET. PO SCH (09:08)
--- NOTE | 2017-04-09 09:31 | PDOC ---
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 Objective Objective Vital Signs Date Time Temp Pulse Resp B/P (MAP) Pulse Ox O2 Delivery O2 Flow Rate FiO2 04/09/17 09:08 95 160/65 04/09/17 07:00 98.4 18 91 Room Air 98.4 04/08/17 19:04 6.0 Intake and Output 04/09/17 07:00 Intake Total 0 ml Output Total 2850 ml Balance -2850 ml Intake Oral 0 ml Output Urine Total 2850 ml Physical Exam Abdomen: Normal bowel sounds, Soft, No tenderness Heart: Regular rate, Normal S1, Normal S2 Extremities: No edema, Normal pulses, Other ( access site without hematoma or bleeding, no bruits, good distal pulses) General: Alert, Oriented X3, Cooperative, No acute distress HEENT: Mucous membr. moist/pink Lungs: Other (decreased bases, left >right) Neuro: Normal speech, Reflexes 2+ Psych/Mental Status: Mental status NL, Mood NL Assessment Assessment Problems Medical Problems: (1) Dyspnea Status: Acute (2) Elevated troponin Status: Acute 1. NSTEMI: s/p cardiac cath with PCI and stenting to SVG to LCX - Continue DAPT 2. acute systolic HF - LVEF 35-40%, improved - continued negative balance, continue beta lamar and ARB. 3. hypertension - increase coreg, monitor 4. CKD: Cr today 1.3 with GFR 53 5. HLD - statin 6. DM2 - per PCP Comment Review of Relevant I have reviewed the following items morales (where applicable) has been applied. Labs Laboratory Tests Test 04/07/17 22:30 04/08/17 05:00 04/08/17 09:15 04/08/17 10:22 White Blood Count 7.2 x10^3/uL (4.0-11.0) Red Blood Count 3.06 x10^6/uL (4.30-5.70) Hemoglobin 9.6 g/dL (13.0-17.5) Hematocrit 28.7 % (39.0-53.0) Mean Corpuscular Volume 94 fL (79-100) Mean Corpuscular Hemoglobin 31 pg (25-35) Mean Corpuscular Hemoglobin Concent 33 g/dL (31-37) Red Cell Distribution Width 14.4 % (11.5-14.5) Platelet Count 211 x10^3/uL (140-400) Neutrophils (%) (Auto) 65 % (31-73) Lymphocytes (%) (Auto) 18 % (24-48) Monocytes (%) (Auto) 11 % (0-9) Eosinophils (%) (Auto) 7 % (0-3) Basophils (%) (Auto) 0 % (0-3) Neutrophils # (Auto) 4.7 x10^3uL (1.8-7.7) Lymphocytes # (Auto) 1.3 x10^3/uL (1.0-4.8) Monocytes # (Auto) 0.8 x10^3/uL (0.0-1.1) Eosinophils # (Auto) 0.5 x10^3/uL (0.0-0.7) Basophils # (Auto) 0.0 x10^3/uL (0.0-0.2) Sodium Level 135 mmol/L (136-145) Potassium Level 4.2 mmol/L (3.5-5.1) Chloride Level 101 mmol/L (98-107) Carbon Dioxide Level 22 mmol/L (21-32) Anion Gap 12 (6-14) Blood Urea Nitrogen 39 mg/dL (8-26) Creatinine 1.8 mg/dL (0.7-1.3) Estimated GFR (Cockcroft-Gault) 37.0 Glucose Level 266 mg/dL (70-99) Calcium Level 8.7 mg/dL (8.5-10.1) Total Bilirubin 0.4 mg/dL (0.2-1.0) Direct Bilirubin 0.1 mg/dL (0.0-0.2) Aspartate Amino Transf (AST/SGOT) 27 U/L (15-37) Alanine Aminotransferase (ALT/SGPT) 20 U/L (16-63) Alkaline Phosphatase 121 U/L (46-116) Troponin I Quantitative 0.697 ng/mL (0.000-0.055) 9.836 ng/mL (0.000-0.055) ZB-Cwj-K-Type Natriuretic Peptide 2745 pg/mL (0-449) Total Protein 8.1 g/dL (6.4-8.2) Albumin 3.8 g/dL (3.4-5.0) Lipase 341 U/L (73-393) Hemoglobin A1c 5.9 % (4.8-5.6) Magnesium Level 1.8 mg/dL (1.8-2.4) Triglycerides Level 232 mg/dL (0-150) Cholesterol Level 136 mg/dL (0-200) LDL Cholesterol, Calculated 63 mg/dL (0-100) VLDL Cholesterol, Calculated 46 mg/dL (0-40) Non-HDL Cholesterol Calculated 109 mg/dL (0-129) HDL Cholesterol 27 mg/dL (40-60) Cholesterol/HDL Ratio 5.0 Thyroid Stimulating Hormone (TSH) 1.562 uIU/mL (0.358-3.74) Urine Collection Type Unknown Urine Color Yellow Urine Clarity Cloudy Urine pH 8.5 Urine Specific [place] 1.010 Urine Protein 30 mg/dL (NEG-TRACE) Urine Glucose (UA) Negative mg/dL (NEG) Urine Ketones (Stick) Negative mg/dL (NEG) Urine Blood Moderate (NEG) Urine Nitrite Negative (NEG) Urine Bilirubin Negative (NEG) Urine Urobilinogen Dipstick 0.2 mg/dL (0.2 mg/dL) Urine Leukocyte Esterase Small (NEG) Urine RBC Fobs /HPF (0-2) Urine WBC Fobs /HPF (0-4) Urine Bacteria Many /HPF (0-FEW) Urine Mucus Marked /LPF Glucose (Fingerstick) 108 mg/dL (70-99) Test 04/08/17 11:00 04/08/17 16:54 04/08/17 19:37 04/08/17 21:00 Troponin I Quantitative 14.217 ng/mL (0.000-0.055) Glucose (Fingerstick) 123 mg/dL (70-99) 127 mg/dL (70-99) 166 mg/dL (70-99) Test 04/09/17 05:03 04/09/17 07:19 Sodium Level 143 mmol/L (136-145) Potassium Level 4.1 mmol/L (3.5-5.1) Chloride Level 110 mmol/L (98-107) Carbon Dioxide Level 22 mmol/L (21-32) Anion Gap 11 (6-14) Blood Urea Nitrogen 28 mg/dL (8-26) Creatinine 1.3 mg/dL (0.7-1.3) Estimated GFR (Cockcroft-Gault) 53.8 Glucose Level 91 mg/dL (70-99) Calcium Level 8.9 mg/dL (8.5-10.1) Glucose (Fingerstick) 78 mg/dL (70-99) Laboratory Tests Test 04/08/17 10:22 04/08/17 11:00 04/08/17 16:54 04/08/17 19:37 Glucose (Fingerstick) 108 mg/dL (70-99) 123 mg/dL (70-99) 127 mg/dL (70-99) Troponin I Quantitative 14.217 ng/mL (0.000-0.055) Test 04/08/17 21:00 04/09/17 05:03 04/09/17 07:19 Glucose (Fingerstick) 166 mg/dL (70-99) 78 mg/dL (70-99) Sodium Level 143 mmol/L (136-145) Potassium Level 4.1 mmol/L (3.5-5.1) Chloride Level 110 mmol/L (98-107) Carbon Dioxide Level 22 mmol/L (21-32) Anion Gap 11 (6-14) Blood Urea Nitrogen 28 mg/dL (8-26) Creatinine 1.3 mg/dL (0.7-1.3) Estimated GFR (Cockcroft-Gault) 53.8 Glucose Level 91 mg/dL (70-99) Calcium Level 8.9 mg/dL (8.5-10.1) Medications Current Medications Aspirin (Emily Aspirin) 325 mg 1X ONCE PO Last administered on 04/07/17 23:23 ; Start 04/07/17 at 23:30; Stop 04/07/17 at 23:31; Status DC Enoxaparin Sodium (Lovenox 80mg Syringe) 80 mg 1X ONCE SQ Last administered on 04/07/17 23:38; Start 04/07/17 at 23:45; Stop 04/07/17 at 23:46; Status DC Ondansetron HCl (Zofran) 4 mg PRN Q8HRS PRN IV NAUSEA/VOMITING; Start 04/07/17 at 23:45; Stop 04/08/17 at 23:44; Status DC Fentanyl Citrate (Fentanyl 2ml Vial) 50 mcg PRN Q2HR PRN IV PAIN; Start at 23:45; Stop 04/08/17 at 23:44; Status DC Acetaminophen (Tylenol) 650 mg PRN Q4HRS PRN PO FEVER; Start 04/07/17 at 23:45; Stop 04/08/17 at 23:44; Status DC Nitroglycerin (Nitrostat) 0.4 mg PRN Q5MIN PRN SL CHEST PAIN; Start 04/07/17 at 23:45; Stop 04/08/17 at 23:44; Status DC Sodium Chloride 1,000 ml @ 100 mls/hr Q10H IV Last administered on 04/08/17 09 :00; Start 04/08/17 at 09:00 Amlodipine Besylate (Norvasc) 10 mg DAILY PO Last administered on 04/09/17 09: 06; Start 04/08/17 at 09:00 Aspirin (Children'S Aspirin) 81 mg DAILY PO ; Start 04/08/17 at 09:00; Stop at 18:36; Status DC Gemfibrozil (Lopid) 600 mg BIDBFRMEAL PO Last administered on 04/09/17 09:04; Start 04/08/17 at 09:00 Glipizide (Glucotrol) 10 mg DAILYBFRSUP PO Last administered on 04/08/17 19:41 ; Start 04/08/17 at 17:00 Losartan Potassium (Cozaar) 50 mg DAILY PO Last administered on 04/09/17 09:08 ; Start 04/08/17 at 09:00 Atorvastatin Calcium (Lipitor) 5 mg QHS PO Last administered on 04/08/17 21:09 ; Start 04/08/17 at 21:00 Pantoprazole Sodium (Protonix) 40 mg DAILYAC PO Last administered on 04/09/17 09:04; Start 04/08/17 at 09:00 Dextrose (Dextrose 50%-Water Syringe) 12.5 gm PRN Q15MIN PRN IV SEE COMMENTS; Start 04/08/17 at 08:30 Sodium Chloride 1,000 ml @ 0 mls/hr Q0M IV ; Start 04/08/17 at 09:29; Stop at 09:28 Acetylcysteine (Mucomyst 20% Oral Solution) 1,200 mg BID PO Last administered on 04/08/17 21:09; Start 04/08/17 at 10:00; Stop 04/10/17 at 09:59 Heparin Sodium/ Sodium Chloride 500 ml @ As Directed STK-MED ONCE .ROUTE ; Start 04/08/17 at 15:40; Stop 04/08/17 at 15:41; Status DC Lidocaine HCl 20 ml STK-MED ONCE .ROUTE ; Start 04/08/17 at 15:40; Stop 04/08/17 at 15:41; Status DC Iodixanol (Visipaque 320) 100 ml STK-MED ONCE .ROUTE ; Start 04/08/17 at 15:41; Stop 04/08/17 at 15:42; Status DC Fentanyl Citrate (Fentanyl 2ml Vial) 100 mcg STK-MED ONCE .ROUTE ; Start at 17:30; Stop 04/08/17 at 17:31; Status DC Midazolam HCl (Versed) 2 mg STK-MED ONCE .ROUTE ; Start 04/08/17 at 17:31; Stop 04/08/17 at 17:32; Status DC Heparin Sodium/ Sodium Chloride 1,000 unit 1X ONCE IART Last administered on 18:33; Start 04/08/17 at 18:00; Stop 04/08/17 at 18:01; Status DC Midazolam HCl (Versed) 2 mg 1X ONCE IV Last administered on 04/08/17 18:34; Start 04/08/17 at 18:00; Stop 04/08/17 at 18:01; Status DC Fentanyl Citrate (Fentanyl 2ml Vial) 100 mcg 1X ONCE IV Last administered on 18:34; Start 04/08/17 at 18:00; Stop 04/08/17 at 18:01; Status DC Iodixanol (Visipaque 320) 100 ml 1X ONCE IART Last administered on 04/08/17 18 :33; Start 04/08/17 at 18:00; Stop 04/08/17 at 18:01; Status DC Lidocaine HCl 15 ml 1X ONCE IJ Last administered on 04/08/17 18:33; Start 04/08 at 18:00; Stop 04/08/17 at 18:01; Status DC Info (Do NOT chart on this entry -- for MONITORING) 1 each PRN DAILY PRN MC SEE COMMENTS; Start 04/08/17 at 18:00; Stop 04/10/17 at 17:59 Bivalirudin (Angiomax) 250 mg STK-MED ONCE IV ; Start 04/08/17 at 17:56; Stop 04/08/17 at 17:57; Status DC Nitroglycerin (Nitroglycerin) 200 mcg 1X ONCE ICAR Last administered on 18:33; Start 04/08/17 at 18:15; Stop 04/08/17 at 18:19; Status DC Bivalirudin (Angiomax) 250 mg 1X ONCE IV Last administered on 04/08/17 18:34; Start 04/08/17 at 18:15; Stop 04/08/17 at 18:19; Status DC Clopidogrel Bisulfate (Plavix) 600 mg 1X ONCE PO Last administered on 18:33; Start 04/08/17 at 18:15; Stop 04/08/17 at 18:19; Status DC Nitroglycerin (Nitroglycerin) 200 mcg STK-MED ONCE .ROUTE ; Start 04/08/17 at 18: 26; Stop 04/08/17 at 18:27; Status DC Clopidogrel Bisulfate (Plavix) 75 mg STK-MED ONCE .ROUTE ; Start 04/08/17 at 18: 26; Stop 04/08/17 at 18:27; Status DC Sodium Chloride 1,000 ml @ 75 mls/hr [id number] IV Last administered on 04/08/17 21:16; Start 04/08/17 at 18:33 Aspirin (Ecotrin) 325 mg DAILYWBKFT PO Last administered on 04/09/17 08:00; Start 04/09/17 at 08:00 Clopidogrel Bisulfate (Plavix) 75 mg DAILYWBKFT PO Last administered on 09:07; Start 04/09/17 at 08:00 Acetaminophen (Tylenol) 650 mg PRN Q6HRS PRN PO MILD PAIN / TEMP; Start at 18:45 Nitroglycerin (Nitrostat) 0.4 mg PRN Q5MIN PRN SL CHEST PAIN; Start 04/08/17 at 18:45 Carvedilol (Coreg) 3.125 mg BIDWMEALS PO Last administered on 6/3/17at 09:07; Start 04/09/17 at 08:00 Active Scripts Active Lasix (Furosemide) 40 Mg Tablet 1 Tab PO DAILY Mucinex Dm Er 600-30 Mg Tablet (Guaifenesin/Dextromethorphan) 1 Each Tab.er.12h 1 Tab PO BID Glipizide 5 Mg Tablet 5 Mg PO DAILYWBKFT Glipizide 5 Mg Tablet 10 Mg PO DAILYBFRSUP Reported Lovastatin 20 Mg Tablet 1 Tab PO DAILY Omeprazole 40 Mg Capsule.dr 1 Cap PO DAILY Amlodipine Besylate 10 Mg Tablet 10 Mg PO DAILY Aspirin 81 Mg Tab.chew 1 Tab PO DAILY Gemfibrozil 600 Mg Tablet 1 Tab PO BID Losartan Potassium 100 Mg Tablet 50 Mg PO DAILY Vitals/I & O Vital Sign - Last 24 Hours 04/08/17 04/08/17 04/08/17 04/08/17 10:21 18:34 18:35 18:50 Temp 97.6 97.6 Pulse 87 104 106 Resp 19 18 19 B/P (MAP) 116/49 (71) 161/71 (101) Pulse Ox 94 94 96 O2 Delivery Room Air Nasal Cannula Nasal Cannula O2 Flow Rate 6.0 4.0 04/08/17 04/08/17 04/08/17 04/08/17 19:04 19:05 19:15 19:30 Temp 98.0 98.0 Pulse 107 102 Resp 20 18 B/P (MAP) 161/68 (99) 179/74 (109) Pulse Ox 94 90 O2 Delivery Room Air Room Air Room Air O2 Flow Rate 6.0 04/08/17 04/08/17 04/08/17 04/08/17 19:30 20:05 20:30 21:00 Pulse 104 106 110 106 B/P (MAP) 167/75 (105) 145/73 (97) 153/111 (125) 168/70 (102) 04/08/17 04/08/17 04/08/17 04/08/17 21:30 22:00 22:30 23:40 Temp 97.9 97.9 Pulse 102 96 95 99 Resp 16 B/P (MAP) 160/65 (96) 152/61 (91) 135/59 (84) 134/83 (100) Pulse Ox 94 O2 Delivery Room Air 04/09/17 04/09/17 04/09/17 04/09/17 00:30 01:30 02:30 03:35 Temp 98.1 98.1 Pulse 94 96 94 95 Resp 18 B/P (MAP) 124/73 (90) 149/65 (93) 152/70 (97) 152/70 (97) Pulse Ox 94 O2 Delivery Room Air 04/09/17 04/09/17 04/09/17 04/09/17 07:00 09:06 09:07 09:08 Temp 98.4 98.4 Pulse 95 95 95 95 Resp 18 B/P (MAP) 160/65 (96) 160/65 160/65 160/65 Pulse Ox 91 O2 Delivery Room Air Intake and Output 04/08/17 04/08/17 04/09/17 15:00 23:00 07:00 Intake Total 0 ml Output Total 700 ml 2150 ml Balance -700 ml 0 ml -2150 ml BECKY JARA MD 04/09/17 1127: PROGRESS NOTES Plan Plan of Care Pt. seen and examined. agree with above REGISTERED PRIVATE DUTY NURSE note. Meds reviewed. No acute events overnight. Normal groin exam. Normal heart tones. Increase losartan to 100mg daily Ok to DC from CV perspective. Will follow up in office in 4 weeks. Thanks. AMRIT GRAY APRN Apr 09, 2017 09:31 BECKY JARA MD Apr 09, 2017 11:27
[2017-04-09] MEDS: IV 1/2 NORMAL SALINE 1,000 ML IV SCH (10:30)
[2017-04-09 11:00] VITALS: BP 138/65
[2017-04-09] MEDS ORDERED: glipiZIDE 5 MG TABLET PO ONE (11:30)
[2017-04-09] MEDS ORDERED: LOSA50TA2 PO (13:08)
[2017-04-09] MEDS ORDERED: CARV6.252 PO (13:08)
[2017-04-09] MEDS ORDERED: CLOP75TA PO (13:08)
[2017-04-09] MEDS: ACETYLCYSTEINE 20% ORAL SOLN 600 MG/3 ML SYRINGE. PO SCH (13:10)
--- NOTE | 2017-04-09 13:13 | PDOC3 ---
Discharge Summary Visit Information Date of Admission: Apr 07, 2017 Date of Discharge: Apr 09, 2017 Final Diagnosis Problems Medical Problems: (1) Dyspnea Status: Acute (2) Elevated troponin Status: Acute Brief Hospital Course Allergies Allergies Coded Allergies Type Severity Reaction Last Updated Verified metformin Allergy Intermediate 11/15/16 Yes pioglitazone Allergy Intermediate 11/15/16 Yes Vital Signs Vital Signs Date Time Temp Pulse Resp B/P (MAP) Pulse Ox O2 Delivery O2 Flow Rate FiO2 04/09/17 11:00 99.4 89 18 138/65 (89) 94 Room Air 99.4 04/08/17 19:04 6.0 Lab Results Laboratory Tests Test 04/07/17 22:30 04/08/17 05:00 04/08/17 09:15 04/08/17 10:22 White Blood Count 7.2 x10^3/uL (4.0-11.0) Red Blood Count 3.06 x10^6/uL (4.30-5.70) Hemoglobin 9.6 g/dL (13.0-17.5) Hematocrit 28.7 % (39.0-53.0) Mean Corpuscular Volume 94 fL (79-100) Mean Corpuscular Hemoglobin 31 pg (25-35) Mean Corpuscular Hemoglobin Concent 33 g/dL (31-37) Red Cell Distribution Width 14.4 % (11.5-14.5) Platelet Count 211 x10^3/uL (140-400) Neutrophils (%) (Auto) 65 % (31-73) Lymphocytes (%) (Auto) 18 % (24-48) Monocytes (%) (Auto) 11 % (0-9) Eosinophils (%) (Auto) 7 % (0-3) Basophils (%) (Auto) 0 % (0-3) Neutrophils # (Auto) 4.7 x10^3uL (1.8-7.7) Lymphocytes # (Auto) 1.3 x10^3/uL (1.0-4.8) Monocytes # (Auto) 0.8 x10^3/uL (0.0-1.1) Eosinophils # (Auto) 0.5 x10^3/uL (0.0-0.7) Basophils # (Auto) 0.0 x10^3/uL (0.0-0.2) Sodium Level 135 mmol/L (136-145) Potassium Level 4.2 mmol/L (3.5-5.1) Chloride Level 101 mmol/L (98-107) Carbon Dioxide Level 22 mmol/L (21-32) Anion Gap 12 (6-14) Blood Urea Nitrogen 39 mg/dL (8-26) Creatinine 1.8 mg/dL (0.7-1.3) Estimated GFR (Cockcroft-Gault) 37.0 Glucose Level 266 mg/dL (70-99) Calcium Level 8.7 mg/dL (8.5-10.1) Total Bilirubin 0.4 mg/dL (0.2-1.0) Direct Bilirubin 0.1 mg/dL (0.0-0.2) Aspartate Amino Transf (AST/SGOT) 27 U/L (15-37) Alanine Aminotransferase (ALT/SGPT) 20 U/L (16-63) Alkaline Phosphatase 121 U/L (46-116) Troponin I Quantitative 0.697 ng/mL (0.000-0.055) 9.836 ng/mL (0.000-0.055) CH-Dqs-A-Type Natriuretic Peptide 2745 pg/mL (0-449) Total Protein 8.1 g/dL (6.4-8.2) Albumin 3.8 g/dL (3.4-5.0) Lipase 341 U/L (73-393) Hemoglobin A1c 5.9 % (4.8-5.6) Magnesium Level 1.8 mg/dL (1.8-2.4) Triglycerides Level 232 mg/dL (0-150) Cholesterol Level 136 mg/dL (0-200) LDL Cholesterol, Calculated 63 mg/dL (0-100) VLDL Cholesterol, Calculated 46 mg/dL (0-40) Non-HDL Cholesterol Calculated 109 mg/dL (0-129) HDL Cholesterol 27 mg/dL (40-60) Cholesterol/HDL Ratio 5.0 Thyroid Stimulating Hormone (TSH) 1.562 uIU/mL (0.358-3.74) Urine Collection Type Unknown Urine Color Yellow Urine Clarity Cloudy Urine pH 8.5 Urine Specific [place] 1.010 Urine Protein 30 mg/dL (NEG-TRACE) Urine Glucose (UA) Negative mg/dL (NEG) Urine Ketones (Stick) Negative mg/dL (NEG) Urine Blood Moderate (NEG) Urine Nitrite Negative (NEG) Urine Bilirubin Negative (NEG) Urine Urobilinogen Dipstick 0.2 mg/dL (0.2 mg/dL) Urine Leukocyte Esterase Small (NEG) Urine RBC Fobs /HPF (0-2) Urine WBC Fobs /HPF (0-4) Urine Bacteria Many /HPF (0-FEW) Urine Mucus Marked /LPF Glucose (Fingerstick) 108 mg/dL (70-99) Test 04/08/17 11:00 04/08/17 16:54 04/08/17 19:37 04/08/17 21:00 Troponin I Quantitative 14.217 ng/mL (0.000-0.055) Glucose (Fingerstick) 123 mg/dL (70-99) 127 mg/dL (70-99) 166 mg/dL (70-99) Test 04/09/17 05:03 04/09/17 07:19 04/09/17 11:42 Sodium Level 143 mmol/L (136-145) Potassium Level 4.1 mmol/L (3.5-5.1) Chloride Level 110 mmol/L (98-107) Carbon Dioxide Level 22 mmol/L (21-32) Anion Gap 11 (6-14) Blood Urea Nitrogen 28 mg/dL (8-26) Creatinine 1.3 mg/dL (0.7-1.3) Estimated GFR (Cockcroft-Gault) 53.8 Glucose Level 91 mg/dL (70-99) Calcium Level 8.9 mg/dL (8.5-10.1) Glucose (Fingerstick) 78 mg/dL (70-99) 156 mg/dL (70-99) Laboratory Tests Test 04/08/17 16:54 04/08/17 19:37 04/08/17 21:00 04/09/17 05:03 Glucose (Fingerstick) 123 mg/dL (70-99) 127 mg/dL (70-99) 166 mg/dL (70-99) Sodium Level 143 mmol/L (136-145) Potassium Level 4.1 mmol/L (3.5-5.1) Chloride Level 110 mmol/L (98-107) Carbon Dioxide Level 22 mmol/L (21-32) Anion Gap 11 (6-14) Blood Urea Nitrogen 28 mg/dL (8-26) Creatinine 1.3 mg/dL (0.7-1.3) Estimated GFR (Cockcroft-Gault) 53.8 Glucose Level 91 mg/dL (70-99) Calcium Level 8.9 mg/dL (8.5-10.1) Test 04/09/17 07:19 04/09/17 11:42 Glucose (Fingerstick) 78 mg/dL (70-99) 156 mg/dL (70-99) Brief Hospital Course Mr. Giles is a 76 old who presented with dyspnea and had a troponin go up to 14 and taken to the senior cytogenetics laboratory director where stents were placed and he has recovered well and being discharged on plavix 75 mg daily, coreg 6.25 bid and losartan increased from 50 mg to 100 mg. He received mucomyst due to CKD but had no complications Discharge Information Condition at Discharge: Improved, Stable Follow Up: Weeks (within [address] Briggs and Oli) Disposition/Orders: D/C to Home Scheduled Amlodipine Besylate (Amlodipine Besylate), 10 MG PO DAILY, (Reported) Aspirin (Aspirin), 1 TAB PO DAILY, (Reported) Furosemide (Lasix), 1 TAB PO DAILY Gemfibrozil (Gemfibrozil), 1 TAB PO BID, (Reported) Glipizide (Glipizide), 10 MG PO DAILYBFRSUP Glipizide (Glipizide), 5 MG PO DAILYWBKFT Guaifenesin/Dextromethorphan (Mucinex Dm Er 600-30 Mg Tablet), 1 TAB PO BID Losartan Potassium (Losartan Potassium), 50 MG PO DAILY, (Reported) Lovastatin (Lovastatin), 1 TAB PO DAILY, (Reported) Omeprazole (Omeprazole), 1 CAP PO DAILY, (Reported) Discontinued Medications Levofloxacin (Levaquin), 1 TAB PO DAILY STERLING KOHLER MD Apr 09, 2017 13:13
[2017-04-09] MEDS ORDERED: CARVEDILOL 6.25 MG TABLET. PO SCH (17:00)
== END 2017-04-09 15:20 | disposition home or self-care (01) | DRG 246 ==
LOC: ER 22:19 → 2 SOUTH 23:30
PROVIDERS: ADMIT Family Medicine; ATTEND Family Medicine
PROC: 4A023N7 Measurement of Cardiac Sampling and Pressure, Left Heart, Percutaneous Approach (ICD-10-PCS; principal; 2017-04-08)
PROC: 027035Z Dilation of Coronary Artery, One Artery with Two Drug-eluting Intraluminal Devices, Percutaneous Approach (ICD-10-PCS; 2017-04-08)
PROC: B2131ZZ Fluoroscopy of Multiple Coronary Artery Bypass Grafts using Low Osmolar Contrast (ICD-10-PCS; 2017-04-08)
PROC: B2111ZZ Fluoroscopy of Multiple Coronary Arteries using Low Osmolar Contrast (ICD-10-PCS; 2017-04-08)
DX: I21.4 Non-ST elevation (NSTEMI) myocardial infarction (principal); I50.21 Acute systolic (congestive) heart failure; I13.0 Hypertensive heart and chronic kidney disease with heart failure and stage 1 through stage 4 chronic kidney disease, or unspecified chronic kidney disease; D63.8 Anemia in other chronic diseases classified elsewhere; E11.22 Type 2 diabetes mellitus with diabetic chronic kidney disease; E78.00 Pure hypercholesterolemia, unspecified; E78.5 Hyperlipidemia, unspecified; E86.0 Dehydration; I25.10 Atherosclerotic heart disease of native coronary artery without angina pectoris; J44.9 Chronic obstructive pulmonary disease, unspecified; K21.9 Gastro-esophageal reflux disease without esophagitis; K52.9 Noninfective gastroenteritis and colitis, unspecified; E11.51 Type 2 diabetes mellitus with diabetic peripheral angiopathy without gangrene; N18.3 Chronic kidney disease, stage 3 (moderate); Z79.02 Long term (current) use of antithrombotics/antiplatelets; Z85.51 Personal history of malignant neoplasm of bladder; Z87.891 Personal history of nicotine dependence; Z95.1 Presence of aortocoronary bypass graft; Z95.5 Presence of coronary angioplasty implant and graft; Z88.8 Allergy status to other drugs, medicaments and biological substances; Z87.440 Personal history of urinary (tract) infections
CPT/HCPCS: 36415; 71010; 80048; 80061; 80076; 81001; 82962; 83036; 83690; 83735; 83880; 84443; 84484; 85027; 92937; 93005; 93306; 93455; 96372; C1725; C1769; C1771; C1874; C1887; C1892; G0269; J0583; J1650; J2250; J3010; J3490; J7030; 99285-25

== ENCOUNTER 2017-05-21 20:19 | Inpatient (IN) | payer MEDICARE ==
[~2017-05-21] VITALS: Ht 172.7 cm; Wt 78.1 kg
[~2017-05-21 20:19] MED LIST changes: +ACET500T55 PO; +ASPI-630 PO; -ASPI81TA2 PO; +ATOR10TA60 PO; +CARV6.252 PO; +CLOP75TA PO; +CYAN10005 PO; +DICY10CA53 PO; +ESCITALOPRAM OX10 MG PO; +FERR325T72 PO; +FURO-69 PO; +GUAI-107 PO; -GUAI-42 PO; -LEVO500T38 PO; +LEVO500T59 PO; +LOSA50TA2 PO; +LOVA20TA2 PO; +PANT40TA5 PO
--- NOTE | 2017-05-21 20:58 | RAD ---
CT brain without contrast. HISTORY: Fell, pain to head CT scan of the brain was done without contrast. There is no intracranial hemorrhage or subdural hematoma. Ventricles are normal in size. There is no mass or shift of the midline. There are small foci of decreased density in the white matter for microvascular changes or small white matter infarcts. IMPRESSION: 1. No intracranial hemorrhage or acute change noted. 2. Small vessel disease versus small lacunar infarcts in the white matter. PQRS Compliance Statement: One or more of the following individualized dose reduction techniques were utilized for this examination: 1. Automated exposure control 2. Adjustment of the mA and/or kV according to patient size 3. Use of iterative reconstruction technique Electronically signed by: Moisés Young MD (05/21/2017 8:54 PM) [facility]
[2017-05-21] MEDS ORDERED: fentaNYL PF VIAL 100 MCG/2 ML VIAL ONE (21:28)
[2017-05-21] MEDS ORDERED: fentaNYL PF VIAL 100 MCG/2 ML VIAL IV ONE (21:30)
--- NOTE | 2017-05-21 21:30 | PHYS DOC ---
Past Medical History Past Medical History: CAD, Cancer, COPD, Diabetes-Type II, GERD, High Cholesterol, Hypertension Additional Past Medical Histor: bladder cancer Past Surgical History: Cancer Surgery, Coronary Bypass Surgery, Other Additional Past Surgical Histo: bladder removed, foot sx, UROSTOMY, HERNIA REPAIR Alcohol Use: None Drug Use: None Adult General Chief Complaint Chief Complaint: MECHANICAL FALL HPI HPI Patient is a 76 year old male who presents by EMS after he had a fall in his kitchen. Patient states he tripped over his own feet and fell onto the left side of his body. No syncope. On presentation, complaining of left elbow pain. He denies loss of consciousness. After the fall, he crawled to wear his life alert button was located and pressed it. The patient does take Plavix. PCP Dr. Briggs Review of Systems Review of Systems Constitutional: Denies fever or chills [] Eyes: Denies change in visual acuity, redness, or eye pain [] HENT: Denies nasal congestion or sore throat [] Respiratory: Denies cough or shortness of breath [] Cardiovascular: Denies chest pain GI: Denies abdominal pain, nausea, vomiting, bloody stools or diarrhea [] : Denies dysuria or hematuria [] Musculoskeletal: Left elbow pain Integument: Denies rash or skin lesions [] Neurologic: Denies headache, focal weakness or sensory changes [] Current Medications Current Medications Current Medications Medications (Trade) Dose Ordered Sig/Evelyne Start Time Stop Time Status Last Admin Dose Admin Fentanyl Citrate (Fentanyl 2ml Vial) 100 mcg STK-MED ONCE 05/21/17 21:28 05/21/17 21:29 DC Allergies Allergies Allergies Coded Allergies Type Severity Reaction Last Updated Verified metformin Allergy Intermediate 11/15/16 Yes pioglitazone Allergy Intermediate 11/15/16 Yes Physical Exam Physical Exam Constitutional: Well developed, well nourished, no acute distress, non-toxic appearance. Alert, mentating normally. HENT: Normocephalic, bilateral external ears normal, oropharynx moist, no oral exudates, nose normal. Ecchymosis lateral to left eye with a small laceration lateral to the left eyebrow. Eyes: PERRLA, EOMI, conjunctiva normal, no discharge. [] Neck: Normal range of motion, no tenderness, supple, no stridor. [] Cardiovascular:Heart rate regular rhythm, no murmur [] Lungs & Thorax: Bilateral breath sounds clear to auscultation [] Abdomen: Bowel sounds normal, soft, no tenderness, no masses, no pulsatile masses. [] Skin: Warm, dry, no erythema, no rash. [] Back: No tenderness, no CVA tenderness. [] Extremities: Left upper extremity: Clavicle, shoulder, nontender to palpation without deformity. Left elbow has an obvious deformity with swelling. Forearm, wrist, hand without deformity or tenderness. Radial pulse palpable, ulnar pulse not detectable. Patient has full range of motion of the left hand with good strength and normal sensation. Hand is warm with good color. Neurologic: Alert and oriented X 3, normal motor function, normal sensory function, no focal deficits noted. [] Current Patient Data Vital Signs Vital Signs Date Time Temp Pulse Resp B/P (MAP) Pulse Ox O2 Delivery O2 Flow Rate FiO2 05/21/17 21:22 82 16 158/70 (99) 96 Room Air 05/21/17 20:19 98.3 98.3 Lab Values Laboratory Tests Test 05/21/17 20:30 White Blood Count 7.9 x10^3/uL (4.0-11.0) Red Blood Count 2.71 x10^6/uL (4.30-5.70) L Hemoglobin 8.7 g/dL (13.0-17.5) L Hematocrit 25.2 % (39.0-53.0) L Mean Corpuscular Volume 93 fL (79-100) Mean Corpuscular Hemoglobin 32 pg (25-35) Mean Corpuscular Hemoglobin Concent 35 g/dL (31-37) Red Cell Distribution Width 14.7 % (11.5-14.5) H Platelet Count 222 x10^3/uL (140-400) Neutrophils (%) (Auto) 71 % (31-73) Lymphocytes (%) (Auto) 16 % (24-48) L Monocytes (%) (Auto) 9 % (0-9) Eosinophils (%) (Auto) 4 % (0-3) H Basophils (%) (Auto) 0 % (0-3) Neutrophils # (Auto) 5.6 x10^3uL (1.8-7.7) Lymphocytes # (Auto) 1.3 x10^3/uL (1.0-4.8) Monocytes # (Auto) 0.7 x10^3/uL (0.0-1.1) Eosinophils # (Auto) 0.3 x10^3/uL (0.0-0.7) Basophils # (Auto) 0.0 x10^3/uL (0.0-0.2) Sodium Level 139 mmol/L (136-145) Potassium Level 4.6 mmol/L (3.5-5.1) Chloride Level 106 mmol/L (98-107) Carbon Dioxide Level 20 mmol/L (21-32) L Anion Gap 13 (6-14) Blood Urea Nitrogen 34 mg/dL (8-26) H Creatinine 1.5 mg/dL (0.7-1.3) H Estimated GFR (Cockcroft-Gault) 45.6 BUN/Creatinine Ratio 23 (6-20) H Glucose Level 123 mg/dL (70-99) H Calcium Level 8.2 mg/dL (8.5-10.1) L Total Bilirubin 0.2 mg/dL (0.2-1.0) Aspartate Amino Transferase (AST) 10 U/L (15-37) L Alanine Aminotransferase (ALT) 14 U/L (16-63) L Alkaline Phosphatase 85 U/L (46-116) Total Protein 7.5 g/dL (6.4-8.2) Albumin 3.6 g/dL (3.4-5.0) Albumin/Globulin Ratio 0.9 (1.0-1.7) L Laboratory Tests 05/21/17 20:30 Laboratory Tests 05/21/17 20:30 EKG EKG [] Radiology/Procedures Radiology/Procedures CT scan of the head read by the radiologist, no acute findings. Two-view x-ray of the left elbow read by me. There is a distal shaft fracture of the left humerus, supracondylar in location, which is not significantly angulated or comminuted, but is overriding and displaced. [] Procedure: Splinting of the left elbow by me The left elbow is being held in a position of relative comfort by the patient, in approximately 120 of extension, with the hand slightly externally rotated. The arm and elbow were padded well with padding and a 4 inch fiberglass splint was placed as a posterior arm splint to keep the elbow in this position of slight flexion and comfort. Procedure: Repair of left eyebrow laceration by me 0.4 cm laceration lateral to the left eyebrow was cleaned and was repaired with Dermabond. Good result. Course & Med Decision Making Course & Med Decision Making Pertinent Labs and Imaging studies reviewed. (See chart for details) 76-year-old male who is on Plavix had a mechanical fall in the kitchen, struck his head without loss of consciousness, CT scan of the head negative on arrival. He does have a displaced left elbow fracture. When the patient was reassessed after x-rays, prior to placing a splint, I am not able to palpate a strong radial pulse, whereas I did palpate a radial pulse when he arrived. The hand remains with good color, warm, capillary refill less than 2 seconds. Good sensation and motor is still present. A splint was placed by me. I discussed the elbow fracture with Dr. Farah, orthopedics. He agreed at this time that splinting the patient in a comfortable and stable position would be the interim treatment. He recommended slight extension which is in fact how the patient was splinted. He will plan to see the patient tomorrow morning and make arrangements to have the proper equipment in place to be able to operate on the patient's elbow. I discussed the case with Dr. Menjivar, taking calls for Dr. Briggs. He will admit the patient. I wrote bridge orders. [] Dragon Disclaimer Dragon Disclaimer This electronic medical record was generated, in whole or in part, using a voice recognition dictation system. Departure Departure Impression: Primary Impression: Left supracondylar humerus fracture Additional Impressions: Fall as cause of accidental injury at home as place of occurrence Head injury, acute, without loss of consciousness Laceration of left eyebrow Disposition: ADMITTED INPATIENT Admitting Physician: Aida Briggs Condition: STABLE Referrals: AIDA BRIGGS MD (PCP) Problem Qualifiers MANSI CONDE MD May 21, 2017 21:30
[2017-05-21 22:29] LABS: BASO % 0 % (0-3); EOS % 4 % (0-3); HEMATOCRIT 25.2 % (39.0-53.0); HEMOGLOBIN 8.7 g/dL (13.0-17.5); LYMPH # 1.3 x10^3/uL (1.0-4.8); LYMPH % 16 % (24-48); MEAN CORPUSCULAR HEMOGLOBIN 32 pg (25-35); MEAN CORPUSCULAR HGB CONC 35 g/dL (31-37); MEAN CORPUSCULAR VOLUME 93 fL (79-100); MONO % 9 % (0-9); NEUT % 71 % (31-73); PLATELET COUNT 222 x10^3/uL (140-400); RED BLOOD COUNT 2.71 x10^6/uL (4.30-5.70); RED CELL DISTRIBUTION WIDTH 14.7 % (11.5-14.5); WHITE BLOOD COUNT 7.9 x10^3/uL (4.0-11.0)
[2017-05-21] MEDS ORDERED: ONDANSETRON PF 4 MG/2 ML VIAL. IV PRN (22:30)
[2017-05-21] MEDS ORDERED: fentaNYL PF VIAL 100 MCG/2 ML VIAL IV PRN (22:30)
[2017-05-21 23:00] LABS: CALCIUM 8.2 mg/dL (8.5-10.1); CREATININE 1.5 mg/dL (0.7-1.3); GFR 45.6; POTASSIUM 4.6 mmol/L (3.5-5.1)
[2017-05-21 23:03] LABS: ALBUMIN 3.6 g/dL (3.4-5.0); ALBUMIN/GLOBULIN RATIO 0.9 (1.0-1.7); TOTAL BILIRUBIN 0.2 mg/dL (0.2-1.0); TOTAL PROTEIN 7.5 g/dL (6.4-8.2)
[2017-05-21 23:08] VITALS: BP 149/47
[2017-05-21 23:09] VITALS: BP 149/47
[2017-05-22] VITALS (10 sets, daily range): BP systolic 80–147; BP diastolic 37–57
[2017-05-22] MEDS ORDERED: DICYCLOMINE HCL 10 MG CAPSULE PO PRN
[2017-05-22] MEDS ORDERED: ACETAMINOPHEN 500 MG TABLET PO PRN
--- NOTE | 2017-05-22 03:23 | ACF ---
Admission Forms Criteria MUSCULOSKELETAL DISEASE GRG Clinical Indications for Admission to Inpatient Care (Place 'X' for any and all applicable criteria): Hospital admission is needed for appropriate care of the patient because of 1 or more of the following: [X ]I. Fracture, dislocation, or other musculoskeletal injury requiring inpatient care(medical) as indicated by 1 or more of the following(4)(5)(6)(7) [ ]a) Vertebral fracture requiring observation for instability or neurologic compromise (8) [ ]b) Compartment syndrome (proven or cannot be ruled out during observation level of care) (9) [ ]c) Limb-threatening injury [ ]d) Major injury requiring inpatient stabilization such as traction initiation or external fixation before internal fixation or closure of complex or open fracture [X ]e) Major injury requiring inpatient treatment after emergency or observation level care (as appropriate) [ ]f) Severe pain requiring acute inpatient management [ ]g) Injury with suspicion of abuse or neglect (eg., child, dependent elderly) [ ]II. Newly diagnosed or suspected bone, joint, or orthopedic device infection (e.g., osteomyelitis, septic arthritis) needing 1 or more of the following(1)(2)(3) [ ]a) IV antibiotics that cannot be initiated in other than inpatient setting (e.g., patient too unstable or home infusion not available) [ ]b) Device removal or replacement [ ]c) Bone or soft tissue debridement [ ]d) Joint drainage (drain placement or repetitive aspirations) [ ]III. Severe rheumatologic disease (e.g., systemic lupus erythematosus, rheumatoid arthritis) with complications or comorbidities (Also use Optimal Recovery Care Criteria or General Recovery Criteria as appropriate on the basis of predominant condition), including 1 or more of the following( 10)(11)(12)(13) [ ]a) Severe infection (e.g., RESPIRATORY THERAPIST infection, sepsis) (14) [ ]b) Respiratory complications, including 1 or more of the following : [ ]i) Pleural effusion with respiratory compromise [ ]ii) Pulmonary hypertension with congestive failure [ ]iii) Respiratory failure [ ]iv) Pulmonary hemorrhage (15) [ ]c) Hematologic disease, including 1 or more of the following: [ ]i) Coagulopathy with bleeding [ ]ii) Thrombosis with hypercoagulable state [ ]iii) Thrombotic thrombocytopenic purpura [ ]d) Cerebritis with seizures, psychosis, or other severe abnormalities [ ]e) Vertebral destruction with monitoring needed for cervical myelopathy& possible respiratory compromise [ ]f) Exacerbation that requires inpatient treatment (e.g., intravenous immunosuppression) (16) [ ]g) Acute renal failure [ ]h) Cerebritis with seizures, psychosis, Altered mental status, or other neurologic abnormalities [ ]i) Pericardial effusion with tamponade [ ]j) Vertebral destruction, with monitoring needed for cervical myelopathy and possible respiratory compromise [ ]IV. Severe vasculitis with complications or comorbidities (Also use Optimal Recovery Care Criteria General Recovery Criteria as appropriate on the basis of predominant condition), including 1 or more of the following(11)(12)(17)(18)(19)(20) [ ]a) Exacerbation that requires inpatient treatment (e.g., intravenous immunosuppression) (19)(21) [ ]b) Pulmonary hemorrhage (15) [ ]c) RESPIRATORY THERAPIST vasculitis with seizures, psychosis, Altered mental status that is severe or persistent, or other severe abnormalities (22) [ ]d) Cerebral infarction [ ]e) Gastrointestinal ischemia [ ]f) Gangrene or threatened amputation [ ]g) Renal failure (16) [ ]h) Other significant complications of vasculitis ( eg., tissue or organ ischemia, organ dysfunction ) [ ]V. Severe myopathy as indicated by 1 or more of the following (28)(29) [ ]a) New onset of airway compromise or inability to swallow [ ]b) Respiratory deterioration with observation needed for impending respiratory failure [ ]c) Exacerbation that requires inpatient treatment (e.g., intravenous immunosuppression) [ ]. Severe crystal gout (arthropathy) indicated by 1 or more of the following (23)(24) [ ]a) Severe pain requiring acute inpatient management [ ]b) Exacerbation that requires inpatient treatment (e.g., intravenous treatment) [ ]VII.Rhabdomyolysis and 1 or more of the following (25)(26)(27) [ ]a) Acute renal failure [ ]b) Need for intravenous hydration after emergency or observation level care (as appropriate) [ ]c) Inability to maintain oral hydration [ ]d) Change in mental status [ ]e) Electrolyte abnormality that remains after emergency or observation level care (as appropriate) [ ]VIII Post amputation complication, as indicated by ANY ONE of the following [ ]a) Infection [ ]b) Dehiscence [ ]c) Myodesis failure [ ]IX. Severe pain requiring acute inpatient management due to musculoskeletal condition [ ]X. Musculoskeletal Disease and ALL of the following: [ ]a) Symptom or finding for which emergency and observation care have failed or are not considered appropriate (Use General Criteria: Observation Care as appropriate) [ ]b) Presence of ANY ONE of the following [ ]i) A General Admission Criteria [ ]ii) A Pediatric General Admission Criteria The original [facility] content created by [facility] [employer] [employer] has been revised. The portions of the content which have been revised are identified through the use of italic text or in bold, and [facility] has neither reviewed nor approved the modified material. All other unmodified content is copyright [facility]. Please see references footnoted in the original [facility] edition 2016 Admission Criteria Met?: Yes KAVEH REBOLLEDO May 22, 2017 03:23
[2017-05-22] MEDS: PANTOPRAZOLE 40 MG TABLET.DR. PO SCH (06:20)
[2017-05-22] MEDS: IPRATRPIUM/ALBUTEROL 0.5/2.5MG 3 ML NEBU. NEB SCH ×4 (07:09→19:30)
[2017-05-22] MEDS ORDERED: IV RINGERS,LACTATED 1000ML 1,000 ML IV SCH (07:10)
[2017-05-22] MEDS ORDERED: PROCHLORPERAZINE 10 MG/2 ML VIAL. IV PRN (07:15)
[2017-05-22] MEDS ORDERED: MORPHINE SULFATE 2 MG/ML DISP.SYRIN. IV PRN (07:15)
[2017-05-22] MEDS ORDERED: LIDOCAINE 1% 1 ML SYRINGE. ID PRN (07:15)
[2017-05-22] MEDS ORDERED: HYDROmorphone 2 MG/ML VIAL IV PRN (07:15)
[2017-05-22] MEDS ORDERED: fentaNYL PF VIAL 100 MCG/2 ML VIAL IV PRN (07:15)
[2017-05-22] MEDS ORDERED: ROCURONIUM 50 MG/5 ML VIAL. ONE (07:24)
[2017-05-22] MEDS ORDERED: fentaNYL PF VIAL 100 MCG/2 ML VIAL ONE (07:24)
[2017-05-22] MEDS ORDERED: SUCCINYLCHOLINE 200 MG/10 ML VIAL. ONE (07:25)
[2017-05-22] MEDS ORDERED: LIDOCAINE 2% PF Vial for OR 5 ML VIAL. ONE (07:25)
[2017-05-22] MEDS ORDERED: PROPOFOL 20 ML IV ONE (07:25)
--- NOTE | 2017-05-22 07:44 | RAD ---
Left elbow 3 views. History: Fell, pain 3 views were taken of the left elbow. There is a displaced angulated supracondylar fracture through the distal humerus. Radius and ulna at the elbow appear intact. Impression: 1. Supracondylar fracture left humerus.
--- NOTE | 2017-05-22 08:05 | PDOC ---
PROGRESS NOTES Subjective Subjective Problems overnight: 76-year-old diabetic male injured his left elbow after a fall pertinent medical history includes recent cardiac stents 2 as of the end of March no symptoms since then fell and struck his head also CT is negative but he did have a displaced supracondylar humerus fracture on the left that was splinted in the emergency department and subsequently admitted Objective Vital Signs Vital Signs Date Time Temp Pulse Resp B/P (MAP) Pulse Ox O2 Delivery O2 Flow Rate FiO2 05/22/17 07:10 94 Room Air 05/22/17 07:00 97.7 89 16 147/50 (82) 97.7 Physical Exam On examination he can flex and extend his fingers capillary refill less than 2 seconds distal sensation is intact throughout Labs Laboratory Tests Test 05/21/17 20:30 05/22/17 00:20 05/22/17 06:19 White Blood Count 7.9 x10^3/uL (4.0-11.0) Red Blood Count 2.71 x10^6/uL (4.30-5.70) Hemoglobin 8.7 g/dL (13.0-17.5) Hematocrit 25.2 % (39.0-53.0) Mean Corpuscular Volume 93 fL (79-100) Mean Corpuscular Hemoglobin 32 pg (25-35) Mean Corpuscular Hemoglobin Concent 35 g/dL (31-37) Red Cell Distribution Width 14.7 % (11.5-14.5) Platelet Count 222 x10^3/uL (140-400) Neutrophils (%) (Auto) 71 % (31-73) Lymphocytes (%) (Auto) 16 % (24-48) Monocytes (%) (Auto) 9 % (0-9) Eosinophils (%) (Auto) 4 % (0-3) Basophils (%) (Auto) 0 % (0-3) Neutrophils # (Auto) 5.6 x10^3uL (1.8-7.7) Lymphocytes # (Auto) 1.3 x10^3/uL (1.0-4.8) Monocytes # (Auto) 0.7 x10^3/uL (0.0-1.1) Eosinophils # (Auto) 0.3 x10^3/uL (0.0-0.7) Basophils # (Auto) 0.0 x10^3/uL (0.0-0.2) Sodium Level 139 mmol/L (136-145) Potassium Level 4.6 mmol/L (3.5-5.1) Chloride Level 106 mmol/L (98-107) Carbon Dioxide Level 20 mmol/L (21-32) Anion Gap 13 (6-14) Blood Urea Nitrogen 34 mg/dL (8-26) Creatinine 1.5 mg/dL (0.7-1.3) Estimated GFR (Cockcroft-Gault) 45.6 BUN/Creatinine Ratio 23 (6-20) Glucose Level 123 mg/dL (70-99) Calcium Level 8.2 mg/dL (8.5-10.1) Total Bilirubin 0.2 mg/dL (0.2-1.0) Aspartate Amino Transf (AST/SGOT) 10 U/L (15-37) Alanine Aminotransferase (ALT/SGPT) 14 U/L (16-63) Alkaline Phosphatase 85 U/L (46-116) Total Protein 7.5 g/dL (6.4-8.2) Albumin 3.6 g/dL (3.4-5.0) Albumin/Globulin Ratio 0.9 (1.0-1.7) Glucose (Fingerstick) 123 mg/dL (70-99) 107 mg/dL (70-99) Laboratory Tests Test 05/21/17 20:30 05/22/17 00:20 05/22/17 06:19 White Blood Count 7.9 x10^3/uL (4.0-11.0) Red Blood Count 2.71 x10^6/uL (4.30-5.70) Hemoglobin 8.7 g/dL (13.0-17.5) Hematocrit 25.2 % (39.0-53.0) Mean Corpuscular Volume 93 fL (79-100) Mean Corpuscular Hemoglobin 32 pg (25-35) Mean Corpuscular Hemoglobin Concent 35 g/dL (31-37) Red Cell Distribution Width 14.7 % (11.5-14.5) Platelet Count 222 x10^3/uL (140-400) Neutrophils (%) (Auto) 71 % (31-73) Lymphocytes (%) (Auto) 16 % (24-48) Monocytes (%) (Auto) 9 % (0-9) Eosinophils (%) (Auto) 4 % (0-3) Basophils (%) (Auto) 0 % (0-3) Neutrophils # (Auto) 5.6 x10^3uL (1.8-7.7) Lymphocytes # (Auto) 1.3 x10^3/uL (1.0-4.8) Monocytes # (Auto) 0.7 x10^3/uL (0.0-1.1) Eosinophils # (Auto) 0.3 x10^3/uL (0.0-0.7) Basophils # (Auto) 0.0 x10^3/uL (0.0-0.2) Sodium Level 139 mmol/L (136-145) Potassium Level 4.6 mmol/L (3.5-5.1) Chloride Level 106 mmol/L (98-107) Carbon Dioxide Level 20 mmol/L (21-32) Anion Gap 13 (6-14) Blood Urea Nitrogen 34 mg/dL (8-26) Creatinine 1.5 mg/dL (0.7-1.3) Estimated GFR (Cockcroft-Gault) 45.6 BUN/Creatinine Ratio 23 (6-20) Glucose Level 123 mg/dL (70-99) Calcium Level 8.2 mg/dL (8.5-10.1) Total Bilirubin 0.2 mg/dL (0.2-1.0) Aspartate Amino Transf (AST/SGOT) 10 U/L (15-37) Alanine Aminotransferase (ALT/SGPT) 14 U/L (16-63) Alkaline Phosphatase 85 U/L (46-116) Total Protein 7.5 g/dL (6.4-8.2) Albumin 3.6 g/dL (3.4-5.0) Albumin/Globulin Ratio 0.9 (1.0-1.7) Glucose (Fingerstick) 123 mg/dL (70-99) 107 mg/dL (70-99) Imaging X-rays from the emergency department show a displaced supracondylar humerus fracture left elbow Assessment Assessment Left elbow supracondylar humerus fracture Problems: Plan Plan of Care I went over with him and his brother power of banking attorney the rationale for fixation of the fracture possibility of infection nerve or blood vessel damage medical or other anesthetic complications among others particularly at high risk for healing or infection due to his diabetes and certainly a surgical risks with the previous heart issues as well. They wish to proceed with operative evaluation and treatment which will occur this morning as necessary hardware has been delivered and processed LORIE HILL MD May 22, 2017 08:05
[2017-05-22] MEDS ORDERED: ePHEDrine PF IN SALINE 50 MG/5 ML DISP.SYRIN IV ONE (08:14)
[2017-05-22] MEDS ORDERED: DEXAMETHASONE SOD PHOS 20 MG/5 ML VIAL. ONE (08:29)
[2017-05-22] MEDS ORDERED: DESFLURANE 61 TO 120 MINUTES IH ONE (08:29)
[2017-05-22] MEDS ORDERED: ONDANSETRON PF 4 MG/2 ML VIAL. ONE (08:34)
[2017-05-22] MEDS ORDERED: GLYCOPYRROLATE 1 MG/5 ML VIAL. ONE (08:45)
[2017-05-22] MEDS ORDERED: NEOSTIGMINE METHYLSULFATE 5 MG/5 ML SYRINGE. ONE (08:45)
[2017-05-22] MEDS: fentaNYL PF VIAL 100 MCG/2 ML VIAL IV PRN ×2 (10:52→11:09)
--- NOTE | 2017-05-22 11:04 | PDOC ---
BRIEF OPERATIVE NOTE Date: May 22, 2017 Pre-Op Diagnosis Left supracondylar elbow fracture Post-Op Diagnosis Same Procedure Performed Operative reduction internal fixation left supracondylar distal humerus fracture with olecranon osteotomy Surgeon Sofi Anesthesiologist [place] Anesthesia Type: General Blood Loss 300cc Findings Above Complications None OPerative Note Patient is a 76-year-old male injured his left elbow in a fall last evening sustaining a displaced supracondylar left distal humerus fracture that was splinted in the emergency department. I had gone over with the patient and his family the rationale for fixation of this fracture as it is very unstable cannot be reliably reduced without fixation and we also went over the possible complications of infection on healing nerve or blood vessel damage medical or other anesthetic complications particularly increased by his recent heart surgery stents and his diabetes in terms of increased risk of nonhealing or infection. His brother and power of admitted attorneys provided consent for surgical evaluation and treatment Operative text patient was identified procedure verified after adequate amounts of general endotracheal anesthesia were administered he was placed in the decubitus position left side up on the operating room table all bony prominences were well-padded and an axillary roll was placed. The left upper extremity was prepped and draped in standard sterile fashion and after timeout was performed patient procedure identified and verified closed reduction was attempted but not satisfactorily. A midline incision was made over the posterior aspect of the elbow and olecranon osteotomy was performed after predrilling the olecranon. As the olecranon and triceps were reflected good visualization was carried out of the distal humerus and the fracture able to be anatomically reduced under direct visualization. Ulnar nerve was localized to ensure the safety of a medial K wire fixation. A K wire was placed from the retrograde position and the lateral column brought through the skin and with anatomic reduction driven across the fracture site. Medial fixation was carried out by another similar sized K wire avoiding the ulnar nerve which was identified under exploration and meticulously avoided. Excellent fixation was obtained with the crossing K wire fixation and noted to be in anatomic position under multiple fluoroscopic views. Olecranon osteotomy was fixated with a 70 mm 3.5 fully threaded screw with a washer. Excellent alignment of all hardware and fracture reduction was noted again under multiple fluoroscopic views. Thorough irrigation was carried out with normal saline solution bleeding points controlled by electrocautery closure accomplished with buried Vicryl suture skin closure with pari sterile dressings were applied following placement of protective Jorgen's balls on the protruding K wires. A well-padded fiberglass posterior splint was applied with an Alvarez wrap. Fingers were noted to be warm and pink throughout the process of the operation and verified again postoperatively. He was extubated transferred to postop holding in stable condition having tolerated the procedure well, and on postoperative examination noted to have intact the still neurovascular status with particular attention to the ulnar radial and median nerve sensation as well as motor function. LORIE HILL MD May 22, 2017 11:04
--- NOTE | 2017-05-22 11:51 | PDOC1 ---
H & P H&P History and physical Chief complaint: Mechanical fall History of present illness: This patient is a 76-year-old male came to the emergency room after stating a mechanical fall. Patient complains of pain in his left elbow was found to have a displaced fracture. Patient was recently discharged from [facility] where he was treated for ongoing debilitation with PT and OT modalities after hospitalization. Patient has had 2 hospitalizations in April 07 for coronary artery disease the other for congestive heart failure patient did have 2 stents on his initial hospitalization. Patient was admitted for orthopedic consultation and medical management of debilitation with PT and OT. Past medical history significant for: Coronary artery disease with recent stent placement COPD History of prostate cancer Peripheral vascular disease Major depression Hypertension Type 2 diabetes Chronic kidney disease stage III Bladder cancer Past surgical history: Under artery bypass graft 2006 Bladder cancer with ileostomy 2006 Right foot surgery with hardware out 2007. Bilateral femoropopliteal 2007 Social history: Patient is a former smoker quit over 8 years ago. Patient now lives alone. Patient's approximately 3 months ago. Patient does not use alcohol Patient's son is DPOA Review of systems: Patient denies any cough congestion fever or chills nausea vomiting diarrhea dizziness or syncope patient's only complaint is left elbow pain from mechanical fall Physical exam: HEENT: Benign Cardiac exam is regular rate and rhythm Lungs: were clear Abdomen: was soft nontender without masses Extremities: shows a 1+ pulses bilaterally without significant edema left elbow is dressed and is immediately post op open reduction internal fixation with splint in place neuro exam: shows no unilateral findings Assessment Left elbow fracture Chronic anemia Debilitation Coronary artery disease Major depression Type 2 diabetes Hypertension High cholesterol Plan: Proceed with with orthopedic evaluation and treatment. Proceed with PT and OT eval and treat. Continue supportive medical care Assess disposition with [facility] or halfway placement versus continued care at assisted-living with family assistance MARIANO DEJESUS MD May 22, 2017 11:51
[2017-05-22] MEDS: CARVEDILOL 6.25 MG TABLET. PO SCH ×2 (12:12→17:50)
[2017-05-22] MEDS: ESCITALOPRAM 10 MG TABLET. PO SCH (12:12)
[2017-05-22] MEDS: FERROUS SULFATE 325 MG TABLET. PO SCH (12:12)
[2017-05-22] MEDS: CYANOCOBALAMIN (VITAMIN B-12) 1,000 MCG TABLET. PO SCH (12:12)
[2017-05-22] MEDS: amLODIPine BESYLATE 10 MG TABLET PO SCH (12:12)
[2017-05-22] MEDS: guaiFENesin DM 600/30MG 1 TAB TAB.ER.12H PO SCH ×2 (12:13→22:17)
[2017-05-22] MEDS: LOSARTAN POTASSIUM 50 MG TABLET. PO SCH (12:13)
[2017-05-22] MEDS: FUROSEMIDE 20 MG TABLET PO SCH (12:13)
[2017-05-22] MEDS: GEMFIBROZIL 600 MG TABLET. PO SCH ×2 (12:13→22:17)
[2017-05-22] MEDS ORDERED: GLIP10TA13 PO (12:29)
[2017-05-22] MEDS ORDERED: GLIP5TAB10 PO (12:29)
[2017-05-22] MEDS ORDERED: HYDROcodone/APAP 7.5/325MG 1 TAB TABLET PO PRN (15:00)
[2017-05-22] MEDS ORDERED: glipiZIDE 5 MG TABLET PO SCH (17:00)
[2017-05-22] MEDS: CLOPIDOGREL BISULFATE 75 MG TABLET PO SCH (17:50)
[2017-05-22] MEDS ORDERED: ATORVASTATIN CALCIUM 10 MG TABLET. PO SCH (21:00)
[2017-05-22] MEDS: HYDROcodone/APAP 7.5/325MG 1 TAB TABLET PO PRN (22:17)
[2017-05-23 03:12] VITALS: BP 128/37
[2017-05-23] MEDS: PANTOPRAZOLE 40 MG TABLET.DR. PO SCH (03:40)
[2017-05-23] MEDS: HYDROcodone/APAP 7.5/325MG 1 TAB TABLET PO PRN ×2 (03:41→09:27)
[2017-05-23] MEDS: IPRATRPIUM/ALBUTEROL 0.5/2.5MG 3 ML NEBU. NEB SCH ×2 (06:53→10:45)
[2017-05-23 07:25] VITALS: BP 129/61
[2017-05-23] MEDS: FERROUS SULFATE 325 MG TABLET. PO SCH (08:17)
[2017-05-23] MEDS: CLOPIDOGREL BISULFATE 75 MG TABLET PO SCH (08:17)
[2017-05-23] MEDS: CARVEDILOL 6.25 MG TABLET. PO SCH (08:17)
--- NOTE | 2017-05-23 08:37 | PDOC2 ---
CONSULT Date of Consult Date of Consult DATE: 05/22/17 TIME: 07:25 Reason for Consult Reason for Consult: Left distal humerus fracture Referring Physician Referring Physician: [facility] emergency department physician Identification/Chief Complaint Chief Complaint Left elbow pain and deformity Problems: Source Source: Chart review, Patient History of Present Illness Reason for Visit: Patient is a 76-year-old male in assisted living who sustained a fall injuring his left elbow hitting the left side of his head. Although he ambulates independently has been less steady on his feet recently and medical decision making is handled by his brother who is power of rooming house inspector. He was admitted through the [facility] emergency department with a displaced left supracondylar humerus fracture noted on x-ray and was splinted Past Medical History Cardiovascular: CAD, CHF, HTN, [place], Hyperlipidemia, Other Pulmonary: COPD CENTRAL NERVOUS SYSTEM: Other GI: GERD Heme/Onc: No pertinent hx, Cancer Hepatobiliary: No pertinent hx Psych: No pertinent hx Rheumatologic: No pertinent hx Infectious disease: No pertinent hx Renal/: Chronic renal insuff, Bladder Ca. Endocrine: Diabetes Past Surgical History Past Surgical History: CABG (patient states he underwent cardiac stents 2 at the end of March 2017), Hernia Repair, Other Family History Family History: Other Social History ALCOHOL: none Drugs: None Lives: Alone (in senior assisted living facility) Current Problem List Problem List Problems Medical Problems: (1) Fall as cause of accidental injury at home as place of occurrence Status: Acute (2) Head injury, acute, without loss of consciousness Status: Acute (3) Laceration of left eyebrow Status: Acute (4) Left supracondylar humerus fracture Status: Acute Current Medications Current Medications Current Medications Fentanyl Citrate (Fentanyl 2ml Vial) 100 mcg 1X ONCE IV Last administered on 21:30; Start 05/21/17 at 21:30; Stop 05/21/17 at 21:31; Status DC Fentanyl Citrate (Fentanyl 2ml Vial) 100 mcg STK-MED ONCE .ROUTE ; Start at 21:28; Stop 05/21/17 at 21:29; Status DC Ondansetron HCl (Zofran) 4 mg PRN Q8HRS PRN IV NAUSEA/VOMITING Last administered on 05/21/17 23:55; Start 05/21/17 at 22:30; Stop 05/22/17 at 22:29 ; Status DC Fentanyl Citrate (Fentanyl 2ml Vial) 50 mcg PRN Q1HR PRN IV PAIN Last administered on 05/21/17 23:55; Start 05/21/17 at 22:30; Stop 05/22/17 at 22:29 ; Status DC Albuterol/ Ipratropium (Duoneb) 3 ml RTQID NEB Last administered on 05/23/17 06:53; Start 05/22/17 at 08:00; Stop 05/23/17 at 07:59; Status DC Acetaminophen (Tylenol) 1,000 mg PRN Q6HRS PRN PO PAIN; Start 05/22/17 at 00:00 Amlodipine Besylate (Norvasc) 10 mg DAILY PO Last administered on 05/22/17 12: 12; Start 05/22/17 at 09:00 Atorvastatin Calcium (Lipitor) 5 mg QHS PO Last administered on 05/22/17 22:20 ; Start 05/22/17 at 21:00 Carvedilol (Coreg) 6.25 mg BIDWMEALS PO Last administered on 05/23/17 08:17; Start 05/22/17 at 08:00 Cyanocobalamin (Vitamin B-12) 1,000 mcg DAILY PO Last administered on 12:12; Start 05/22/17 at 09:00 Dicyclomine HCl (Bentyl) 10 mg PRN QID PRN PO abdominal pain; Start 05/22/17 at 00:00 Ferrous Sulfate (Feosol) 325 mg DAILYWBKFT PO Last administered on 05/23/17 08 :17; Start 05/22/17 at 08:00 Furosemide (Lasix) 20 mg DAILY PO Last administered on 05/22/17 12:13; Start 05/22/17 at 09:00 Gemfibrozil (Lopid) 600 mg BID PO Last administered on 05/22/17 22:17; Start 05/22/17 at 09:00 Guaifenesin (MUCINEX ER with DM) 1 tab BID PO Last administered on 05/22/17 22 :17; Start 05/22/17 at 09:00 Losartan Potassium (Cozaar) 100 mg DAILY PO Last administered on 05/22/17 12: 13; Start 05/22/17 at 09:00 Pantoprazole Sodium (Protonix) 40 mg DAILYAC PO Last administered on 05/23/17 03:40; Start 05/22/17 at 07:30 Escitalopram Oxalate (Lexapro) 10 mg DAILY PO Last administered on 05/22/17 12 :12; Start 05/22/17 at 09:00 Fentanyl Citrate (Fentanyl 2ml Vial) 25 mcg PRN Q5MIN PRN IV MILD PAIN Last administered on 05/22/17 10:52; Start 05/22/17 at 07:15; Stop 05/22/17 at 12:07 ; Status DC Fentanyl Citrate (Fentanyl 2ml Vial) 50 mcg PRN Q5MIN PRN IV MODERATE PAIN; Start 05/22/17 at 07:15; Stop 05/22/17 at 12:07; Status DC Morphine Sulfate 1 mg PRN Q10MIN PRN IV SEVERE PAIN; Start 05/22/17 at 07:15; Stop 05/22/17 at 12:07; Status DC Ringer's Solution 1,000 ml @ 30 mls/hr Q24H IV ; Start 05/22/17 at 07:10; Stop 05/22/17 at 12:07; Status DC Lidocaine HCl 2 ml PRN 1X PRN ID PRIOR TO IV START; Start 05/22/17 at 07:15; Stop 05/22/17 at 12:07; Status DC Hydromorphone HCl (Dilaudid) 0.5 mg PRN Q10MIN PRN IV SEV PAIN, Second choice; Start 05/22/17 at 07:15; Stop 05/22/17 at 12:07; Status DC Prochlorperazine Edisylate (Compazine) 5 mg PACU PRN PRN IV NAUSEA, MRX1; Start 05/22/17 at 07:15; Stop 05/22/17 at 12:07; Status DC Rocuronium [place] (Zemuron) 50 mg STK-MED ONCE .ROUTE ; Start 05/22/17 at 07:24 ; Stop 05/22/17 at 07:25; Status DC Fentanyl Citrate (Fentanyl 2ml Vial) 100 mcg STK-MED ONCE .ROUTE ; Start at 07:24; Stop 05/22/17 at 07:25; Status DC Succinylcholine Chloride (Anectine) 200 mg STK-MED ONCE .ROUTE ; Start 05/22/17 at 07:25; Stop 05/22/17 at 07:26; Status DC Propofol 20 ml @ As Directed STK-MED ONCE IV ; Start 05/22/17 at 07:25; Stop at 07:26; Status DC Lidocaine HCl (Lidocaine Pf 2% Vial) 5 ml STK-MED ONCE .ROUTE ; Start 05/22/17 at 07:25; Stop 05/22/17 at 07:26; Status DC Cefazolin Sodium 50 ml @ As Directed STK-MED ONCE IV ; Start 05/22/17 at 07:57; Stop 05/22/17 at 07:58; Status DC Ephedrine Sulfate 50 mg STK-MED ONCE IV ; Start 05/22/17 at 08:14; Stop at 08:15; Status DC Dexamethasone Sodium Phosphate (Decadron) 20 mg STK-MED ONCE .ROUTE ; Start at 08:29; Stop 05/22/17 at 08:30; Status DC Desflurane (Suprane) 60 ml STK-MED ONCE IH ; Start 05/22/17 at 08:29; Stop 05/22 at 08:30; Status DC Ondansetron HCl (Zofran) 4 mg STK-MED ONCE .ROUTE ; Start 05/22/17 at 08:34; Stop 05/22/17 at 08:35; Status DC Glycopyrrolate (Robinul) 1 mg STK-MED ONCE .ROUTE ; Start 05/22/17 at 08:45; Stop 05/22/17 at 08:46; Status DC Neostigmine Methylsulfate 5 mg STK-MED ONCE .ROUTE ; Start 05/22/17 at 08:45; Stop 05/22/17 at 08:46; Status DC Cefazolin Sodium/ Dextrose 50 ml @ 100 mls/hr Q8H IV Last administered on 05/23 08:17; Start 05/22/17 at 16:00; Stop 05/23/17 at 08:29 Glipizide (Glucotrol) 5 mg DAILY PO ; Start 05/23/17 at 09:00 Glipizide (Glucotrol) 10 mg DAILYWSUP PO Last administered on 05/22/17 17:50; Start 05/22/17 at 17:00 Acetaminophen/ Hydrocodone Bitart (Lortab 7.5/325) 1 tab PRN Q6HRS PRN PO PAIN Last administered on 05/22/17 15:50; Start 05/22/17 at 15:00 Acetaminophen/ Hydrocodone Bitart (Lortab 7.5/325) 2 tab PRN Q6HRS PRN PO PAIN Last administered on 05/23/17 03:41; Start 05/22/17 at 15:00 Clopidogrel Bisulfate (Plavix) 75 mg DAILYWBKFT PO Last administered on 08:17; Start 05/22/17 at 15:00 Active Scripts Active Lasix (Furosemide) 20 Mg Tablet 1 Tab PO DAILY Pantoprazole Sodium 40 Mg Tablet.dr 40 Mg PO DAILYAC 30 Days Feosol (Ferrous Sulfate) 325 Mg Tablet 325 Mg PO DAILYWBKFT 30 Days Escitalopram Oxalate 10 Mg Tablet 10 Mg PO DAILY 30 Days Bentyl (Dicyclomine Hcl) 10 Mg Capsule 10 Mg PO PRN QID PRN 30 Days Vitamin B-12 (Cyanocobalamin (Vitamin B-12)) 1,000 Mcg Tablet 1,000 Mcg PO DAILY 30 Days Atorvastatin Calcium 10 Mg Tablet 5 Mg PO QHS 30 Days Mapap (Acetaminophen) 500 Mg Tablet 1,000 Mg PO PRN Q6HRS PRN 30 Days Cozaar (Losartan Potassium) 50 Mg Tablet 100 Mg PO DAILY 90 Days Clopidogrel (Clopidogrel Bisulfate) 75 Mg Tablet 75 Mg PO DAILYWBKFT 90 Days Carvedilol 6.25 Mg Tablet 6.25 Mg PO BIDWMEALS 90 Days Mucinex Dm Er 600-30 Mg Tablet (Guaifenesin/Dextromethorphan) 1 Each Tab.er.12h 1 Tab PO BID Reported Glipizide 10 Mg Tablet 10 Mg PO DAILYWSUP Glipizide 5 Mg Tablet 5 Mg PO DAILY Amlodipine Besylate 10 Mg Tablet 10 Mg PO DAILY Aspirin 81 Mg Tab.chew 1 Tab PO DAILY Gemfibrozil 600 Mg Tablet 1 Tab PO BID Allergies Allergies: Coded Allergies: metformin (Verified Allergy, Intermediate, 05/22/17) pioglitazone (Verified Allergy, Intermediate, 05/22/17) Physical Exam Physical Exam On examination is a 76-year-old male alert and oriented pleasant cooperative. HEENT has some bruising left side of his face no tenderness over his neck midline and no pain on range of motion. Examination of the left upper extremity reveals obvious deformity in terms of flexion and rotation. Significant swelling at the elbow he has an abrasion with a skin tear on this forearm. He is able to flex and extend his fingers and lightly grasp with no problem. Capillary refill less than 2 seconds. Distal motor function and sensation is intact to the left hand. He has normal motion alignment stability of shoulder elbow and wrist on the right side and of bilateral hips knees and ankles Vitals VITALS Vital Signs Date Time Temp Pulse Resp B/P (MAP) Pulse Ox O2 Delivery O2 Flow Rate FiO2 05/23/17 08:17 72 129/61 05/23/17 07:25 95.7 16 93 Room Air 95.7 05/22/17 15:32 1.0 Labs Labs Laboratory Tests Test 05/21/17 20:30 05/22/17 00:20 05/22/17 06:19 05/22/17 10:42 White Blood Count 7.9 x10^3/uL (4.0-11.0) Red Blood Count 2.71 x10^6/uL (4.30-5.70) Hemoglobin 8.7 g/dL (13.0-17.5) Hematocrit 25.2 % (39.0-53.0) Mean Corpuscular Volume 93 fL (79-100) Mean Corpuscular Hemoglobin 32 pg (25-35) Mean Corpuscular Hemoglobin Concent 35 g/dL (31-37) Red Cell Distribution Width 14.7 % (11.5-14.5) Platelet Count 222 x10^3/uL (140-400) Neutrophils (%) (Auto) 71 % (31-73) Lymphocytes (%) (Auto) 16 % (24-48) Monocytes (%) (Auto) 9 % (0-9) Eosinophils (%) (Auto) 4 % (0-3) Basophils (%) (Auto) 0 % (0-3) Neutrophils # (Auto) 5.6 x10^3uL (1.8-7.7) Lymphocytes # (Auto) 1.3 x10^3/uL (1.0-4.8) Monocytes # (Auto) 0.7 x10^3/uL (0.0-1.1) Eosinophils # (Auto) 0.3 x10^3/uL (0.0-0.7) Basophils # (Auto) 0.0 x10^3/uL (0.0-0.2) Sodium Level 139 mmol/L (136-145) Potassium Level 4.6 mmol/L (3.5-5.1) Chloride Level 106 mmol/L (98-107) Carbon Dioxide Level 20 mmol/L (21-32) Anion Gap 13 (6-14) Blood Urea Nitrogen 34 mg/dL (8-26) Creatinine 1.5 mg/dL (0.7-1.3) Estimated GFR (Cockcroft-Gault) 45.6 BUN/Creatinine Ratio 23 (6-20) Glucose Level 123 mg/dL (70-99) Calcium Level 8.2 mg/dL (8.5-10.1) Total Bilirubin 0.2 mg/dL (0.2-1.0) Aspartate Amino Transf (AST/SGOT) 10 U/L (15-37) Alanine Aminotransferase (ALT/SGPT) 14 U/L (16-63) Alkaline Phosphatase 85 U/L (46-116) Total Protein 7.5 g/dL (6.4-8.2) Albumin 3.6 g/dL (3.4-5.0) Albumin/Globulin Ratio 0.9 (1.0-1.7) Glucose (Fingerstick) 123 mg/dL (70-99) 107 mg/dL (70-99) 135 mg/dL (70-99) Test 05/22/17 11:57 05/22/17 16:41 05/22/17 20:56 05/23/17 07:31 Glucose (Fingerstick) 190 mg/dL (70-99) 245 mg/dL (70-99) 218 mg/dL (70-99) 67 mg/dL (70-99) Laboratory Tests Test 05/22/17 10:42 05/22/17 11:57 05/22/17 16:41 05/22/17 20:56 Glucose (Fingerstick) 135 mg/dL (70-99) 190 mg/dL (70-99) 245 mg/dL (70-99) 218 mg/dL (70-99) Test 05/23/17 07:31 Glucose (Fingerstick) 67 mg/dL (70-99) Images Images X-rays of the left elbow show a displaced supracondylar left distal humerus fracture Assessment/Plan Assessment/Plan I went over with him and his brother power of rooming house inspector the x-rays of the left elbow and the necessity of operative treatment as the fracture is completely displaced. I talked about the possibility of closed reduction if obtainable but more likely open reduction and either pin or plate and screw fixation, the possibility of infection nerve or blood vessel damage medical or other anesthetic complications delayed or nonhealing which is an increased risk factor due to his diabetes, and increased risk of medical issues during surgery particularly due to the recent heart procedure. He will remain on Plavix primarily due to the heart indications but that is a risk factor for increased bleeding as well. All their questions were answered and his brother provided informed consent to proceed with surgical evaluation and treatment which will occur this morning. As I discussed with the emergency department physician last night, plate and screw fixation hardware and associated trays needed to be brought and processed in case those were necessary for the procedure LORIE HILL MD May 23, 2017 08:37
[2017-05-23] MEDS ORDERED: glipiZIDE 5 MG TABLET PO SCH (09:00)
[2017-05-23] MEDS: ESCITALOPRAM 10 MG TABLET. PO SCH (09:19)
[2017-05-23] MEDS: GEMFIBROZIL 600 MG TABLET. PO SCH (09:20)
[2017-05-23] MEDS: CYANOCOBALAMIN (VITAMIN B-12) 1,000 MCG TABLET. PO SCH (09:20)
[2017-05-23] MEDS: guaiFENesin DM 600/30MG 1 TAB TAB.ER.12H PO SCH (09:20)
[2017-05-23] MEDS: FUROSEMIDE 20 MG TABLET PO SCH (09:20)
[2017-05-23] MEDS: amLODIPine BESYLATE 10 MG TABLET PO SCH (09:20)
[2017-05-23] MEDS: LOSARTAN POTASSIUM 50 MG TABLET. PO SCH (09:21)
[2017-05-23 11:15] VITALS: BP 101/33
[2017-05-23 14:54] VITALS: BP 121/42
== END 2017-05-23 15:18 | DRG 493 ==
LOC: ER 20:19 → 4 NORTH 21:35
PROVIDERS: ADMIT Family Medicine; ATTEND Family Medicine
PROC: 0PSG04Z Reposition Left Humeral Shaft with Internal Fixation Device, Open Approach (ICD-10-PCS; principal; 2017-05-22 08:00)
DX: S42.412A Displaced simple supracondylar fracture without intercondylar fracture of left humerus, initial encounter for closed fracture (principal); I13.0 Hypertensive heart and chronic kidney disease with heart failure and stage 1 through stage 4 chronic kidney disease, or unspecified chronic kidney disease; E11.22 Type 2 diabetes mellitus with diabetic chronic kidney disease; E78.5 Hyperlipidemia, unspecified; E78.00 Pure hypercholesterolemia, unspecified; F32.9 Major depressive disorder, single episode, unspecified; I25.10 Atherosclerotic heart disease of native coronary artery without angina pectoris; I50.9 Heart failure, unspecified; E11.51 Type 2 diabetes mellitus with diabetic peripheral angiopathy without gangrene; S01.112A Laceration without foreign body of left eyelid and periocular area, initial encounter; W01.0XXA Fall on same level from slipping, tripping and stumbling without subsequent striking against object, initial encounter; S09.90XA Unspecified injury of head, initial encounter; N18.3 Chronic kidney disease, stage 3 (moderate); K21.9 Gastro-esophageal reflux disease without esophagitis; J44.9 Chronic obstructive pulmonary disease, unspecified; D64.9 Anemia, unspecified; Z85.51 Personal history of malignant neoplasm of bladder; Y93.89 Activity, other specified; Y99.2 Volunteer activity; Y92.009 Unspecified place in unspecified non-institutional (private) residence as the place of occurrence of the external cause; Z87.891 Personal history of nicotine dependence; Z95.1 Presence of aortocoronary bypass graft; Z95.5 Presence of coronary angioplasty implant and graft; Z85.46 Personal history of malignant neoplasm of prostate; Z79.899 Other long term (current) drug therapy; Z88.8 Allergy status to other drugs, medicaments and biological substances; Z79.1 Long term (current) use of non-steroidal anti-inflammatories (NSAID); Z79.2 Long term (current) use of antibiotics
CPT/HCPCS: 12011; 29105; 36415; 70450; 73080; 76000; 80053; 82962; 85027; 94250; 94640; 94760; 96374; A6539; J0330; J0690; J1100; J2001; J2405; J2704; J2710; J3010; J3490; J7620; 99285-25